=== PATIENT | female | born 1965 | race African-American/Black ===

== ENCOUNTER 2017-05-28 08:24 | Emergency (ER) | payer OTHER ==
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
[2017-05-28 09:01] VITALS: BMI 33.6
[2017-05-28] MEDS ORDERED: morphine CARPU-JECT 4 MG/1 ML DISP.SYRIN IVPUSH ONE (09:13)
[2017-05-28] MEDS ORDERED: morphine CARPU-JECT 2 MG/1 ML DISP.SYRIN ONE (09:15)
[2017-05-28] MEDS ORDERED: ONDANSETRON 4 MG/2 ML VIAL IVPUSH ONE (09:15)
[2017-05-28] MEDS ORDERED: ONDANSETRON 4 MG/2 ML VIAL ONE (09:16)
[2017-05-28 09:52] LABS: BASOPHIL 1.1 % (0-2.0); EOSINOPHIL 1.4 % (0-4.5); MCH 32.3 pg (25.7-33.7); MCHC 34.1 g/dl (32.0-36.0); MEAN CELL VOLUME 94.7 fl (80-96); MEAN PLT VOLUME 7.9 fl (7.5-11.1); NEUTROPHILS 57.4 % (42.8-82.8); PLATELET COUNT 300 K/MM3 (134-434); RDW 14.2 % (11.6-15.6); WHITE BLOOD COUNT 6.7 K/mm3 (4.0-10.0)
[2017-05-28 10:13] LABS: ALBUMIN 3.9 g/dl (3.4-5.0); ALK PHOS 96 U/L (45-117); ANION GAP 6 (8-16); CALCIUM 9.4 mg/dL (8.5-10.1); CO2 27 mmol/L (21-32); CREATININE 0.7 mg/dL (0.55-1.02); GLUCOSE,RANDOM 108 mg/dL (74-106); SGPT/ALT 46 U/L (12-78); TOT PROT 7.5 g/dl (6.4-8.2)
[2017-05-28 10:18] LABS: INR 0.96 (0.82-1.09); PROTHROMBIN TIME (PATIENT) 10.5 SEC (9.98-11.88)
[2017-05-28 10:19] LABS: SGOT/AST 61 U/L (15-37)
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
[2017-05-28] MEDS ORDERED: KETOROLAC TROMETHAMINE 30 MG/1 ML VIAL IVPUSH ONE (11:37)
[2017-05-28] MEDS ORDERED: KETOROLAC TROMETHAMINE 30 MG/1 ML VIAL ONE (13:01)
[2017-05-28 13:18] VITALS: BP 150/80; PULSE 80; TEMP 98
== END 2017-05-28 13:19 | disposition home or self-care (01) ==
LOC: JER 08:24
PROC: 3E0333Z Introduction of Anti-inflammatory into Peripheral Vein, Percutaneous Approach (ICD-10-PCS; principal; 2017-05-28)
PROC: 3E033NZ Introduction of Analgesics, Hypnotics, Sedatives into Peripheral Vein, Percutaneous Approach (ICD-10-PCS; 2017-05-28)
PROC: 3E033GC Introduction of Other Therapeutic Substance into Peripheral Vein, Percutaneous Approach (ICD-10-PCS; 2017-05-28)
DX: M54.2 Cervicalgia (principal); M54.6 Pain in thoracic spine; I10 Essential (primary) hypertension; E78.00 Pure hypercholesterolemia, unspecified; Z87.891 Personal history of nicotine dependence
CPT/HCPCS: 36415; 70450-TC; 71101-TC; 72125-TC; 74177-TC; 80053; 85025; 85610; 86850; 86900; 86901; 99283-25

== ENCOUNTER 2021-05-25 09:05 | Emergency (ER) | payer OTHER ==
[2021-05-25 09:14] VITALS: BMI 26.4
[2021-05-25] MEDS ORDERED: SODIUM CHLORIDE 0.9% 1000 ML INFUS.BAG IV ONE (09:59)
[2021-05-25 10:49] LABS: BASO % 0.6 % (0-2.0); EOS % 0.3 % (0-4.5); HEMATOCRIT 32.9 % (32.4-45.2); HEMOGLOBIN 10.7 GM/dL (10.7-15.3); LYMPH % 15.4 % (8-40); MCH 26.1 pg (25.7-33.7); MCHC 32.4 g/dl (32.0-36.0); MEAN CELL VOLUME 80.5 fl (80-96); MEAN PLT VOLUME 7.2 fl (7.5-11.1); MONO % 6.3 % (3.8-10.2); NEUT % 77.4 % (42.8-82.8); PLATELET COUNT 511 10^3/uL (134-434); RBC 4.08 M/mm3 (3.60-5.2); RDW 24.8 % (11.6-15.6); WHITE BLOOD COUNT 9.1 K/mm3 (4.0-10.0)
[2021-05-25 11:06] LABS: CHLORIDE 104 mmol/L (98-107); SODIUM 139 mmol/L (136-145)
[2021-05-25 11:08] LABS: CALCIUM 9.1 mg/dL (8.5-10.1)
[2021-05-25 11:09] LABS: ALBUMIN 3.4 g/dl (3.4-5.0); ANION GAP 7 MMOL/L (8-16); BLOOD UREA NITROGEN 9.1 mg/dL (7-18); CO2 29 mmol/L (21-32); GLUCOSE,RANDOM 96 mg/dL (74-106)
[2021-05-25 11:12] LABS: CREATININE 0.5 mg/dL (0.55-1.3); SGOT/AST 116 U/L (15-37); SGPT/ALT 67 U/L (13-61)
[2021-05-25 11:13] LABS: TOT PROT 7.1 g/dl (6.4-8.2)
[2021-05-25 11:14] LABS: BILIRUBIN,TOTAL 0.4 mg/dL (0.2-1)
[2021-05-25 11:15] LABS: ALK PHOS 294 U/L (45-117)
[2021-05-25 11:46] LABS: EPI CELLS 21 /uL (0-25.1); HYALINE CASTS 9 /uL (0-3.1); PH,URINE 7.5 (5.0-8.0); URINE APPEARANCE CLOUDY; URINE BACTERIA >9,000 /uL (0-1359); URINE BILIRUBIN NEGATIVE (NEGATIVE); URINE COLOR YELLOW; URINE GLUCOSE (UA) NEGATIVE (NEGATIVE); URINE KETONE NEGATIVE (NEGATIVE); URINE LEUK ESTERASE 2+ (NEGATIVE); URINE NITRITE POSITIVE (NEGATIVE); URINE PROTEIN NEGATIVE (NEGATIVE); URINE RBC 10 /uL (0-23.9); URINE WBC 232 /uL (0-25.8)
[2021-05-25 11:58] VITALS: TEMP 97.7
[2021-05-25 12:00] LABS: ANISOCYTOSIS 1+; MACROCYTOSIS 0; PLATELET ESTIMATE INCREASED
[2021-05-25 12:34] VITALS: BP 141/79; PULSE 89
== END 2021-05-25 12:34 | disposition home or self-care (01) ==
LOC: JER 09:05
DX: R55 Syncope and collapse (principal); N39.0 Urinary tract infection, site not specified
CPT/HCPCS: 36415; 71045-TC-FY; 80053; 81003; 84484; 85025; 87086; 93005; 93010; 99285-25

== ENCOUNTER 2021-05-31 10:55 | Inpatient (IN) | payer OTHER ==
[2021-05-31 12:09] LABS: HEMATOCRIT 32.6 % (32.4-45.2); HEMOGLOBIN 10.8 GM/dL (10.7-15.3); LYMPH % 16.8 % (8-40); MCH 26.5 pg (25.7-33.7); MEAN CELL VOLUME 80.3 fl (80-96); MEAN PLT VOLUME 7.5 fl (7.5-11.1); MONO % 7.1 % (3.8-10.2); NEUT % 75.1 % (42.8-82.8); PLATELET COUNT 522 10^3/uL (134-434); RBC 4.06 M/mm3 (3.60-5.2); RDW 23.4 % (11.6-15.6); WHITE BLOOD COUNT 9.8 K/mm3 (4.0-10.0)
[2021-05-31] MEDS ORDERED: SODIUM CHLORIDE 1,000 ML IV STA (12:13)
[2021-05-31 12:16] LABS: INR 1.02 (0.83-1.09); PROTHROMBIN TIME (PATIENT) 12.6 SEC (9.7-13.0)
[2021-05-31 12:30] LABS: ALBUMIN 3.5 g/dl (3.4-5.0); CALCIUM 9.8 mg/dL (8.5-10.1)
[2021-05-31 12:33] LABS: CREATININE 0.7 mg/dL (0.55-1.3)
[2021-05-31 12:35] LABS: BILIRUBIN,TOTAL 0.4 mg/dL (0.2-1); TOT PROT 7.4 g/dl (6.4-8.2)
[2021-05-31 13:02] LABS: EPI CELLS >36 /uL (0-25.1); HYALINE CASTS 46 /uL (0-3.1); URINE APPEARANCE CLOUDY; URINE BACTERIA 20 /uL (0-1359); URINE BILIRUBIN 1+ (NEGATIVE); URINE COLOR DK YELLOW; URINE GLUCOSE (UA) NEGATIVE (NEGATIVE); URINE KETONE 1+ (NEGATIVE); URINE LEUK ESTERASE 2+ (NEGATIVE); URINE NITRITE NEGATIVE (NEGATIVE); URINE PROTEIN 2+ (NEGATIVE); URINE RBC 28 /uL (0-23.9); URINE WBC 164 /uL (0-25.8)
[2021-05-31 13:22] LABS: ANISOCYTOSIS 2+; MACROCYTOSIS 0; PLATELET ESTIMATE INCREASED; TARGET CELLS 1+; TEAR DROP CELLS 1+
[2021-05-31] MEDS ORDERED: DEXTROSE 5%-LACTATED RINGERS 1,000 ML IV ONE (15:35)
[2021-05-31] MEDS ORDERED: morphine CARPU-JECT 4 MG/1 ML DISP.SYRIN IVPUSH ONE (15:44)
[2021-05-31] MEDS ORDERED: morphine SULFATE 4 MG/ML VIAL ONE (15:50)
[2021-05-31] MEDS ORDERED: DOCUSATE SODIUM 100 MG CAPSULE (FP) PO PRN (17:24)
[2021-05-31] MEDS ORDERED: ENOXAPARIN NA (PORCINE) 40 MG/0.4 ML DISP.SYRIN SQ ONE (17:25)
[2021-05-31] MEDS: ENOXAPARIN NA (PORCINE) 40 MG/0.4 ML DISP.SYRIN SQ SCH (17:44)
[2021-05-31] MEDS: oxyCODONE HCL 5 MG TABLET PO PRN (22:30)
[2021-05-31 23:05] VITALS: BMI 27.1
[2021-06-01] MEDS: oxyCODONE HCL 5 MG TABLET PO PRN ×3 (06:24→19:56)
[2021-06-01 09:51] LABS: BASO % 0.9 % (0-2.0); EOS % 0.6 % (0-4.5); HEMATOCRIT 29.8 % (32.4-45.2); HEMOGLOBIN 9.7 GM/dL (10.7-15.3); LYMPH % 24.6 % (8-40); MCH 26.5 pg (25.7-33.7); MCHC 32.5 g/dl (32.0-36.0); MEAN CELL VOLUME 81.5 fl (80-96); MEAN PLT VOLUME 8.1 fl (7.5-11.1); MONO % 10.8 % (3.8-10.2); NEUT % 63.1 % (42.8-82.8); PLATELET COUNT 455 10^3/uL (134-434); RBC 3.66 M/mm3 (3.60-5.2); RDW 23.7 % (11.6-15.6); WHITE BLOOD COUNT 7.3 K/mm3 (4.0-10.0)
[2021-06-01] MEDS ORDERED: FLU VACC QS2021-22(6MOS UP)/PF 60 MCG/0.5 ML SYRINGE IM ONE (10:00)
[2021-06-01 10:14] LABS: CALCIUM 9.1 mg/dL (8.5-10.1)
[2021-06-01 10:15] LABS: ALBUMIN 3.1 g/dl (3.4-5.0); BLOOD UREA NITROGEN 7.9 mg/dL (7-18); MAGNESIUM 2.6 mg/dL (1.8-2.4)
[2021-06-01 10:17] LABS: BILIRUBIN,TOTAL 0.4 mg/dL (0.2-1); TOT PROT 6.4 g/dl (6.4-8.2)
[2021-06-01 10:18] LABS: CREATININE 0.5 mg/dL (0.55-1.3)
[2021-06-01 10:35] LABS: PHOSPHOROUS 4.2 mg/dL (2.5-4.9)
[2021-06-01] MEDS ORDERED: PT OWN MED DRAWER 7, Y5N ONE (10:38)
[2021-06-01] MEDS: amLODIPine BESYLATE 10 MG TABLET (FP) PO SCH (11:00)
[2021-06-01] MEDS: LISINOPRIL 10 MG TABLET PO SCH (11:01)
[2021-06-01] MEDS: ENOXAPARIN NA (PORCINE) 40 MG/0.4 ML DISP.SYRIN SQ SCH (11:01)
[2021-06-01] MEDS: ACETAMINOPHEN 325 MG TABLET (FP) PO PRN ×2 (13:37→20:00)
[2021-06-01] MEDS ORDERED: SODIUM PHOSPHATE/NA BIPHOS 133 ML ENEMA PR ONE (13:57)
[2021-06-01] MEDS ORDERED: POLYETHYLENE GLYCOL 3350 255 GM BTL PO ONE (13:57)
[2021-06-01] MEDS: LIDOCAINE 5% TOPICAL PATCH TP SCH (18:48)
[2021-06-01 19:52] LABS: URINE APPEARANCE CLEAR; URINE BILIRUBIN NEGATIVE (NEGATIVE); URINE COLOR YELLOW; URINE GLUCOSE (UA) NEGATIVE (NEGATIVE); URINE KETONE NEGATIVE (NEGATIVE); URINE LEUK ESTERASE NEGATIVE (NEGATIVE); URINE NITRITE NEGATIVE (NEGATIVE); URINE PROTEIN NEGATIVE (NEGATIVE); URINE UROBILINOGEN 0.2 mg/dL (0.2-1.0)
[2021-06-01] MEDS: LIDOCAINE PATCH REMOVAL MC SCH (21:43)
[2021-06-02] MEDS ORDERED: SODIUM PHOSPHATE/NA BIPHOS 133 ML ENEMA RC ONE (04:00)
[2021-06-02] MEDS: oxyCODONE HCL 5 MG TABLET PO PRN ×4 (04:49→23:59)
[2021-06-02] MEDS: ACETAMINOPHEN 325 MG TABLET (FP) PO PRN ×4 (04:52→23:59)
[2021-06-02 08:11] LABS: BASO % 0.3 % (0-2.0); EOS % 0.2 % (0-4.5); HEMATOCRIT 29.2 % (32.4-45.2); HEMOGLOBIN 9.5 GM/dL (10.7-15.3); LYMPH % 16.9 % (8-40); MCH 26.4 pg (25.7-33.7); MCHC 32.6 g/dl (32.0-36.0); MEAN CELL VOLUME 81.1 fl (80-96); MEAN PLT VOLUME 7.8 fl (7.5-11.1); MONO % 9.2 % (3.8-10.2); NEUT % 73.4 % (42.8-82.8); PLATELET COUNT 432 10^3/uL (134-434); RBC 3.61 M/mm3 (3.60-5.2); RDW 23.3 % (11.6-15.6); WHITE BLOOD COUNT 6.6 K/mm3 (4.0-10.0)
[2021-06-02 08:15] LABS: INR 1.01 (0.83-1.09); PROTHROMBIN TIME (PATIENT) 12.2 SEC (9.7-13.0)
[2021-06-02 08:17] LABS: ACTIVATED PTT 27.7 SECONDS (25.2-36.5)
[2021-06-02 08:56] LABS: ALBUMIN 3.1 g/dl (3.4-5.0); BLOOD UREA NITROGEN 5.4 mg/dL (7-18); CALCIUM 9.2 mg/dL (8.5-10.1); MAGNESIUM 2.5 mg/dL (1.8-2.4)
[2021-06-02 08:59] LABS: CREATININE 0.5 mg/dL (0.55-1.3); PHOSPHOROUS 4.2 mg/dL (2.5-4.9)
[2021-06-02 09:00] LABS: BILIRUBIN,TOTAL 0.5 mg/dL (0.2-1); TOT PROT 6.6 g/dl (6.4-8.2)
[2021-06-02] MEDS: LISINOPRIL 10 MG TABLET PO SCH (12:23)
[2021-06-02] MEDS: amLODIPine BESYLATE 10 MG TABLET (FP) PO SCH (12:25)
[2021-06-02] MEDS: LIDOCAINE 5% TOPICAL PATCH TP SCH (12:25)
[2021-06-02] MEDS: LIDOCAINE PATCH REMOVAL MC SCH (22:06)
[2021-06-03] MEDS ORDERED: SODIUM CHLORIDE 1,000 ML IV SCH (00:15)
[2021-06-03] MEDS ORDERED: ONDANSETRON 4 MG/2 ML VIAL IVPUSH ONE (03:28)
[2021-06-03] MEDS: oxyCODONE HCL 5 MG TABLET PO PRN ×2 (04:16→10:39)
[2021-06-03] MEDS: ACETAMINOPHEN 325 MG TABLET (FP) PO PRN (04:17)
[2021-06-03] MEDS: LIDOCAINE 5% TOPICAL PATCH TP SCH (10:39)
[2021-06-03] MEDS: ENOXAPARIN NA (PORCINE) 40 MG/0.4 ML DISP.SYRIN SQ SCH (10:39)
[2021-06-03 12:33] LABS: BASO % 0.7 % (0-2.0); HEMATOCRIT 30.3 % (32.4-45.2); HEMOGLOBIN 9.8 GM/dL (10.7-15.3); LYMPH % 16.4 % (8-40); MCH 26.4 pg (25.7-33.7); MCHC 32.2 g/dl (32.0-36.0); MEAN PLT VOLUME 7.9 fl (7.5-11.1); MONO % 7.5 % (3.8-10.2); NEUT % 75.4 % (42.8-82.8); PLATELET COUNT 436 10^3/uL (134-434); RBC 3.69 M/mm3 (3.60-5.2); RDW 22.7 % (11.6-15.6); WHITE BLOOD COUNT 9.5 K/mm3 (4.0-10.0)
[2021-06-03 12:55] LABS: CALCIUM 8.9 mg/dL (8.5-10.1)
[2021-06-03 12:56] LABS: BLOOD UREA NITROGEN 6.8 mg/dL (7-18); MAGNESIUM 2.2 mg/dL (1.8-2.4)
[2021-06-03 12:59] LABS: CREATININE 0.5 mg/dL (0.55-1.3); PHOSPHOROUS 3.4 mg/dL (2.5-4.9)
[2021-06-03] MEDS: LIDOCAINE PATCH REMOVAL MC SCH (21:42)
[2021-06-04] MEDS ORDERED: LOPERAMIDE HCL 2 MG CAPSULE PO ONE (06:49)
[2021-06-04] MEDS: oxyCODONE HCL 5 MG TABLET PO PRN (07:48)
[2021-06-04 09:22] LABS: EOS % 0.1 % (0-4.5); HEMATOCRIT 30.3 % (32.4-45.2); HEMOGLOBIN 9.9 GM/dL (10.7-15.3); LYMPH % 15.6 % (8-40); MCH 26.6 pg (25.7-33.7); MCHC 32.5 g/dl (32.0-36.0); MEAN CELL VOLUME 81.7 fl (80-96); MONO % 9.3 % (3.8-10.2); PLATELET COUNT 451 10^3/uL (134-434); RBC 3.71 M/mm3 (3.60-5.2); RDW 22.7 % (11.6-15.6); WHITE BLOOD COUNT 8.4 K/mm3 (4.0-10.0)
[2021-06-04] MEDS: amLODIPine BESYLATE 10 MG TABLET (FP) PO SCH (09:30)
[2021-06-04] MEDS: LIDOCAINE 5% TOPICAL PATCH TP SCH (09:30)
[2021-06-04] MEDS: LISINOPRIL 10 MG TABLET PO SCH (09:30)
[2021-06-04] MEDS: ENOXAPARIN NA (PORCINE) 40 MG/0.4 ML DISP.SYRIN SQ SCH (09:30)
[2021-06-04 09:54] LABS: ALBUMIN 2.9 g/dl (3.4-5.0)
[2021-06-04 09:55] LABS: BLOOD UREA NITROGEN 7.6 mg/dL (7-18); MAGNESIUM 2.5 mg/dL (1.8-2.4)
[2021-06-04 09:57] LABS: CREATININE 0.5 mg/dL (0.55-1.3); PHOSPHOROUS 3.1 mg/dL (2.5-4.9)
[2021-06-04 09:58] LABS: BILIRUBIN,TOTAL 0.6 mg/dL (0.2-1)
[2021-06-04 09:59] LABS: TOT PROT 6.6 g/dl (6.4-8.2)
[2021-06-04 10:52] LABS: ANISOCYTOSIS 1+; MACROCYTOSIS 0; PLATELET ESTIMATE INCREASED
[2021-06-04] MEDS: HYDROmorphone HCl 2 MG/ML VIAL IVPB PRN (18:49)
[2021-06-04] MEDS ORDERED: ONDANSETRON 4 MG/2 ML VIAL IVPUSH ONE (20:10)
[2021-06-04] MEDS: LIDOCAINE PATCH REMOVAL MC SCH (23:09)
[2021-06-05] MEDS: HYDROmorphone HCl 2 MG/ML VIAL IVPB PRN ×2 (01:57→15:13)
[2021-06-05] MEDS ORDERED: ONDANSETRON 8 MG TABLET (FP) PO PRN (10:04)
[2021-06-05] MEDS: LIDOCAINE 5% TOPICAL PATCH TP SCH (10:15)
[2021-06-05] MEDS: LISINOPRIL 10 MG TABLET PO SCH (10:16)
[2021-06-05] MEDS: amLODIPine BESYLATE 10 MG TABLET (FP) PO SCH (10:16)
[2021-06-05 16:27] LABS: ALBUMIN 3.2 g/dl (3.4-5.0); CALCIUM 9.7 mg/dL (8.5-10.1)
[2021-06-05 16:28] LABS: BLOOD UREA NITROGEN 11.3 mg/dL (7-18); MAGNESIUM 2.4 mg/dL (1.8-2.4)
[2021-06-05 16:31] LABS: CREATININE 0.5 mg/dL (0.55-1.3); PHOSPHOROUS 4.4 mg/dL (2.5-4.9)
[2021-06-05 16:32] LABS: BILIRUBIN,TOTAL 0.5 mg/dL (0.2-1); TOT PROT 6.9 g/dl (6.4-8.2)
[2021-06-05] MEDS: LIDOCAINE PATCH REMOVAL MC SCH (21:33)
[2021-06-06] MEDS: HYDROmorphone HCl 2 MG/ML VIAL IVPB PRN (04:29)
[2021-06-06 09:53] LABS: BASO % 0.6 % (0-2.0); EOS % 0.2 % (0-4.5); HEMATOCRIT 29.1 % (32.4-45.2); HEMOGLOBIN 9.5 GM/dL (10.7-15.3); LYMPH % 24.9 % (8-40); MCH 26.3 pg (25.7-33.7); MCHC 32.7 g/dl (32.0-36.0); MEAN CELL VOLUME 80.5 fl (80-96); MEAN PLT VOLUME 7.8 fl (7.5-11.1); MONO % 9.4 % (3.8-10.2); NEUT % 64.9 % (42.8-82.8); PLATELET COUNT 501 10^3/uL (134-434); RBC 3.62 M/mm3 (3.60-5.2); RDW 22.6 % (11.6-15.6); WHITE BLOOD COUNT 7.5 K/mm3 (4.0-10.0)
[2021-06-06 10:15] LABS: ALBUMIN 2.8 g/dl (3.4-5.0); BLOOD UREA NITROGEN 12.3 mg/dL (7-18); CALCIUM 8.9 mg/dL (8.5-10.1); MAGNESIUM 1.8 mg/dL (1.8-2.4)
[2021-06-06 10:18] LABS: PHOSPHOROUS 4.4 mg/dL (2.5-4.9)
[2021-06-06 10:19] LABS: BILIRUBIN,TOTAL 0.3 mg/dL (0.2-1); CREATININE 0.5 mg/dL (0.55-1.3)
[2021-06-06 10:20] LABS: TOT PROT 6.7 g/dl (6.4-8.2)
[2021-06-06] MEDS: LIDOCAINE 5% TOPICAL PATCH TP SCH (10:37)
[2021-06-06] MEDS: amLODIPine BESYLATE 10 MG TABLET (FP) PO SCH (10:41)
[2021-06-06] MEDS: LISINOPRIL 10 MG TABLET PO SCH (10:41)
[2021-06-06 10:47] VITALS: BP 128/77; PULSE 68; TEMP 98.2
[2021-06-06] MEDS ORDERED: FLU VACC QS2021-22(6MOS UP)/PF 60 MCG/0.5 ML SYRINGE IM ONE (15:45)
[2021-06-06] MEDS ORDERED: oxyCODONE HCL 5 MG TABLET PO PRN (17:15)
[2021-06-06] MEDS ORDERED: ACETAMINOPHEN 325 MG TABLET (FP) PO PRN (17:15)
== END 2021-06-06 17:39 | disposition home or self-care (01) | DRG 375 ==
LOC: JER 10:55 → JERBED 15:55 → J5S 20:34
PROVIDERS: ADMIT Internal Medicine; ATTEND Internal Medicine
PROC: 0DBK8ZX Excision of Ascending Colon, Via Natural or Artificial Opening Endoscopic, Diagnostic (ICD-10-PCS; 2021-06-02)
PROC: 0DBP8ZX Excision of Rectum, Via Natural or Artificial Opening Endoscopic, Diagnostic (ICD-10-PCS; 2021-06-02)
PROC: 0DBK8ZX Excision of Ascending Colon, Via Natural or Artificial Opening Endoscopic, Diagnostic (ICD-10-PCS; principal; 2021-06-02 10:00)
DX: C18.2 Malignant neoplasm of ascending colon (principal); C78.7 Secondary malignant neoplasm of liver and intrahepatic bile duct; I10 Essential (primary) hypertension; E78.5 Hyperlipidemia, unspecified; R63.4 Abnormal weight loss; Z68.27 Body mass index [BMI] 27.0-27.9, adult; R00.0 Tachycardia, unspecified; K57.90 Diverticulosis of intestine, part unspecified, without perforation or abscess without bleeding; R10.31 Right lower quadrant pain; D12.1 Benign neoplasm of appendix; D12.8 Benign neoplasm of rectum
CPT/HCPCS: 36415; 71046-TC-FY; 71250-TC; 72149-TC; 74177-TC; 78306-TC; 80048; 80053; 81003; 82378; 83615; 83690; 83735; 84100; 85025; 85610; 85730; 86850; 86900; 86901; 87040; 87086; 88305-TC; 90686; 93005; 93010; 99285-25; A9503; A9579; C9803; G0008; Q9967; U0003; U0005

== ENCOUNTER 2021-07-06 15:13 | Inpatient (IN) | payer OTHER ==
[2021-07-06] MEDS ORDERED: morphine CARPU-JECT 4 MG/1 ML DISP.SYRIN IVPUSH ONE (16:16)
[2021-07-06] MEDS ORDERED: morphine SULFATE 4 MG/ML VIAL ONE ×2 (16:18→19:24)
[2021-07-06] MEDS ORDERED: LACTATED RINGERS SOLUTION 1000 ML INFUS.BAG IV ONE ×2 (16:55→19:13)
[2021-07-06] MEDS ORDERED: ONDANSETRON 4 MG/2 ML VIAL IVPUSH ONE (17:18)
[2021-07-06] MEDS ORDERED: ONDANSETRON 4 MG/2 ML VIAL ONE (17:22)
[2021-07-06 18:33] LABS: ALBUMIN 3.2 g/dl (3.4-5.0); BLOOD UREA NITROGEN 27.5 mg/dL (7-18); CALCIUM 9.7 mg/dL (8.5-10.1); MAGNESIUM 2.9 mg/dL (1.8-2.4)
[2021-07-06 18:36] LABS: BILIRUBIN,DIRECT 3.5 mg/dL (0.0-0.2)
[2021-07-06 18:38] LABS: BILIRUBIN,TOTAL 4.4 mg/dL (0.2-1); TOT PROT 7.3 g/dl (6.4-8.2)
[2021-07-06 18:52] LABS: LACTIC ACID 3.3 mmol/L (0.4-2.0)
[2021-07-06 19:00] LABS: HEMATOCRIT 31.2 % (32.4-45.2); HEMOGLOBIN 9.8 GM/dL (10.7-15.3); MCH 24.7 pg (25.7-33.7); MCHC 31.4 g/dl (32.0-36.0); MEAN CELL VOLUME 78.5 fl (80-96); MEAN PLT VOLUME 8.2 fl (7.5-11.1); PLATELET COUNT 635 10^3/uL (134-434); RBC 3.97 M/mm3 (3.60-5.2); WHITE BLOOD COUNT 16.1 K/mm3 (4.0-10.0)
[2021-07-06] MEDS ORDERED: SODIUM CHLORIDE 0.9% 500 ML INFUS.BAG IV ONE (19:11)
[2021-07-06] MEDS ORDERED: morphine SULFATE 4 MG/ML VIAL IVPUSH ONE (19:19)
[2021-07-06 19:44] LABS: INR 1.47 (0.83-1.09); PROTHROMBIN TIME (PATIENT) 16.5 SEC (9.7-13.0)
[2021-07-06 19:47] LABS: ACTIVATED PTT 21.5 SECONDS (25.2-36.5)
[2021-07-06 20:47] LABS: ANISOCYTOSIS 1+; MACROCYTOSIS 0; PLATELET ESTIMATE INCREASED; TARGET CELLS 1+
[2021-07-06] MEDS ORDERED: amLODIPine BESYLATE 5 MG TABLET (FP) PO ONE (21:25)
[2021-07-06] MEDS ORDERED: amLODIPine BESYLATE 5 MG TABLET (FP) ONE (21:47)
[2021-07-06 23:52] LABS: HEMATOCRIT 25.8 % (32.4-45.2); HEMOGLOBIN 8.5 GM/dL (10.7-15.3); MCH 24.7 pg (25.7-33.7); MCHC 32.8 g/dl (32.0-36.0); MEAN CELL VOLUME 75.1 fl (80-96); PLATELET COUNT 497 10^3/uL (134-434); RBC 3.43 M/mm3 (3.60-5.2); RDW 18.5 % (11.6-15.6); WHITE BLOOD COUNT 12.5 K/mm3 (4.0-10.0)
[2021-07-07 00:14] LABS: BLOOD UREA NITROGEN 25.5 mg/dL (7-18); CALCIUM 8.6 mg/dL (8.5-10.1)
[2021-07-07 00:18] LABS: CREATININE 0.7 mg/dL (0.55-1.3)
[2021-07-07] MEDS ORDERED: HYDROmorphone HCl 2 MG/ML VIAL ONE (01:48)
[2021-07-07] MEDS: HYDROmorphone HCl 2 MG/ML VIAL IVPUSH PRN ×3 (01:53→16:42)
[2021-07-07] MEDS: SODIUM CHLORIDE 1,000 ML IV SCH (02:30)
[2021-07-07] MEDS: LISINOPRIL 10 MG TABLET PO SCH ×2 (07:42→15:24)
[2021-07-07 09:01] LABS: PLATELET ESTIMATE NORMAL
[2021-07-07 09:21] LABS: HEMOGLOBIN 8.4 GM/dL (10.7-15.3); MCH 24.9 pg (25.7-33.7); MCHC 32.4 g/dl (32.0-36.0); MEAN CELL VOLUME 76.7 fl (80-96); MEAN PLT VOLUME 7.6 fl (7.5-11.1); PLATELET COUNT 540 10^3/uL (134-434); RBC 3.39 M/mm3 (3.60-5.2); RDW 17.6 % (11.6-15.6); WHITE BLOOD COUNT 13.9 K/mm3 (4.0-10.0)
[2021-07-07 09:57] LABS: ALBUMIN 2.7 g/dl (3.4-5.0); BLOOD UREA NITROGEN 28.5 mg/dL (7-18); MAGNESIUM 2.7 mg/dL (1.8-2.4)
[2021-07-07 10:00] LABS: CREATININE 0.7 mg/dL (0.55-1.3)
[2021-07-07] MEDS ORDERED: ENOXAPARIN NA (PORCINE) 40 MG/0.4 ML DISP.SYRIN SQ SCH (10:00)
[2021-07-07 10:01] LABS: BILIRUBIN,TOTAL 3.8 mg/dL (0.2-1); PHOSPHOROUS 3.9 mg/dL (2.5-4.9)
[2021-07-07 10:02] LABS: TOT PROT 6.3 g/dl (6.4-8.2)
[2021-07-07 10:39] LABS: ANISOCYTOSIS 2+; MACROCYTOSIS 0; PLATELET ESTIMATE INCREASED; TARGET CELLS 2+
[2021-07-07] MEDS ORDERED: SODIUM CHLORIDE 500 ML IV SCH (13:20)
[2021-07-07] MEDS ORDERED: MIDAZOLAM HCL 2 MG/2 ML SINGLE DOSE VIAL IVPUSH ONE (13:35)
[2021-07-07] MEDS: DOCUSATE SODIUM 100 MG CAPSULE (FP) PO SCH ×3 (14:00→22:17)
[2021-07-07 14:01] LABS: EPI CELLS >36 /uL (0-25.1); HYALINE CASTS 63 /uL (0-3.1); PH,URINE 5.5 (5.0-8.0); URINE APPEARANCE CLOUDY; URINE BACTERIA 42 /uL (0-1359); URINE BILIRUBIN 2+ (NEGATIVE); URINE COLOR DK YELLOW; URINE GLUCOSE (UA) NEGATIVE (NEGATIVE); URINE KETONE TRACE (NEGATIVE); URINE LEUK ESTERASE 1+ (NEGATIVE); URINE NITRITE NEGATIVE (NEGATIVE); URINE PROTEIN 2+ (NEGATIVE); URINE WBC 247 /uL (0-25.8)
[2021-07-07 14:16] LABS: URINE RBC 24.5 /uL (0-23.9)
[2021-07-07] MEDS ORDERED: HYDROmorphone HCl 2 MG/ML VIAL IVPB PRN ×2 (17:10→21:37)
[2021-07-07] MEDS: amLODIPine BESYLATE 10 MG TABLET (FP) PO SCH (22:17)
[2021-07-08] MEDS: SODIUM CHLORIDE 1,000 ML IV SCH ×2 (02:56→11:31)
[2021-07-08] MEDS ORDERED: HYDROmorphone HCl 2 MG/ML VIAL IVPB PRN ×3 (05:48→12:36)
[2021-07-08] MEDS: DOCUSATE SODIUM 100 MG CAPSULE (FP) PO SCH ×3 (06:14→21:50)
[2021-07-08] MEDS: LISINOPRIL 10 MG TABLET PO SCH (06:14)
[2021-07-08 08:52] LABS: BASO % 0.7 % (0-2.0); HEMATOCRIT 25.4 % (32.4-45.2); HEMOGLOBIN 8.2 GM/dL (10.7-15.3); INR 1.4 (0.83-1.09); LYMPH % 5.9 % (8-40); MCH 25.5 pg (25.7-33.7); MCHC 32.3 g/dl (32.0-36.0); MEAN CELL VOLUME 78.8 fl (80-96); MONO % 18.1 % (3.8-10.2); NEUT % 75.3 % (42.8-82.8); PLATELET COUNT 547 10^3/uL (134-434); PROTHROMBIN TIME (PATIENT) 15.7 SEC (9.7-13.0); RBC 3.22 M/mm3 (3.60-5.2); RDW 18.7 % (11.6-15.6); WHITE BLOOD COUNT 12.6 K/mm3 (4.0-10.0)
[2021-07-08 08:55] LABS: ACTIVATED PTT 22.1 SECONDS (25.2-36.5)
[2021-07-08] MEDS ORDERED: POLYETHYLENE GLYCOL (HEALTHYLAX) 3350 17 GM PACKET PO PRN (12:16)
[2021-07-08] MEDS: SODIUM ZIRCONIUM CYCLOSILICATE (LOKELMA) 5 GM PACKET PO SCH (15:12)
[2021-07-08] MEDS: ONDANSETRON 4 MG/2 ML VIAL IVPUSH PRN ×2 (15:15→21:45)
[2021-07-08 17:18] LABS: CALCIUM 8.8 mg/dL (8.5-10.1)
[2021-07-08 17:19] LABS: ALBUMIN 2.7 g/dl (3.4-5.0); BLOOD UREA NITROGEN 32.9 mg/dL (7-18); MAGNESIUM 2.8 mg/dL (1.8-2.4)
[2021-07-08 17:22] LABS: CREATININE 0.8 mg/dL (0.55-1.3)
[2021-07-08 17:23] LABS: BILIRUBIN,TOTAL 3.8 mg/dL (0.2-1)
[2021-07-08 17:24] LABS: TOT PROT 6.2 g/dl (6.4-8.2)
[2021-07-08] MEDS ORDERED: LACTULOSE 20 GM/30 ML UDC (FOR ORAL USE ONLY) PO PRN (17:58)
[2021-07-08] MEDS: amLODIPine BESYLATE 10 MG TABLET (FP) PO SCH (21:48)
[2021-07-08] MEDS: HEPARIN NA (PORCINE) 5,000 UNITS/ML 1ML VIAL SQ SCH (21:48)
[2021-07-08] MEDS: HYDROmorphone HCl 2 MG/ML VIAL IVPB PRN (21:50)
[2021-07-08] MEDS ORDERED: HEPARIN NA (PORCINE) 5,000 UNITS/ML 1ML VIAL SQ SCH (22:00)
[2021-07-09] MEDS: DEXTROSE 5%-NORMAL SALINE 1,000 ML IV SCH ×2 (01:23→18:34)
[2021-07-09] MEDS: HYDROmorphone HCl 2 MG/ML VIAL IVPB PRN ×3 (05:42→19:47)
[2021-07-09] MEDS: HEPARIN NA (PORCINE) 5,000 UNITS/ML 1ML VIAL SQ SCH ×3 (05:47→21:27)
[2021-07-09] MEDS: DOCUSATE SODIUM 100 MG CAPSULE (FP) PO SCH ×3 (05:50→21:32)
[2021-07-09] MEDS: LISINOPRIL 10 MG TABLET PO SCH (07:08)
[2021-07-09 08:52] LABS: HEMATOCRIT 25.4 % (32.4-45.2); HEMOGLOBIN 8.2 GM/dL (10.7-15.3); MCH 24.9 pg (25.7-33.7); MCHC 32.3 g/dl (32.0-36.0); MEAN CELL VOLUME 77.3 fl (80-96); MEAN PLT VOLUME 7.5 fl (7.5-11.1); PLATELET COUNT 476 10^3/uL (134-434); RBC 3.28 M/mm3 (3.60-5.2); RDW 18.5 % (11.6-15.6); WHITE BLOOD COUNT 12.6 K/mm3 (4.0-10.0)
[2021-07-09 09:13] LABS: ALBUMIN 2.6 g/dl (3.4-5.0); BLOOD UREA NITROGEN 32.4 mg/dL (7-18); CALCIUM 8.6 mg/dL (8.5-10.1); MAGNESIUM 2.8 mg/dL (1.8-2.4)
[2021-07-09 09:18] LABS: BILIRUBIN,TOTAL 4.3 mg/dL (0.2-1); CREATININE 0.9 mg/dL (0.55-1.3); TOT PROT 6.4 g/dl (6.4-8.2)
[2021-07-09] MEDS: SODIUM ZIRCONIUM CYCLOSILICATE (LOKELMA) 5 GM PACKET PO SCH (09:18)
[2021-07-09] MEDS: PANTOPRAZOLE SODIUM 40 MG VIAL IVPUSH SCH (09:18)
[2021-07-09] MEDS: MULTIVITAMINS (DAILY MVI) TABLET (FP) PO SCH (09:18)
[2021-07-09] MEDS: POLYETHYLENE GLYCOL (HEALTHYLAX) 3350 17 GM PACKET PO PRN (09:23)
[2021-07-09] MEDS ORDERED: PANTOPRAZOLE SODIUM 40 MG in SODIUM CHLORIDE 100 ML IVPB SCH (10:00)
[2021-07-09] MEDS ORDERED: HYDROmorphone HCl 2 MG/ML VIAL IVPB PRN ×2 (10:03→10:09)
[2021-07-09 10:53] LABS: ANISOCYTOSIS 0; HELMET CELLS 0; HOWELL-JOLLY BODIES 0; MACROCYTOSIS 0; OVALOCYTE 0; PLATELET ESTIMATE NORMAL; ROULEAU 0; SICKELED CELLS 0; TARGET CELLS 0; TEAR DROP CELLS 0; TOXIC GRANULATION 0
[2021-07-09 11:32] LABS: INR 1.34 (0.83-1.09); PROTHROMBIN TIME (PATIENT) 15.7 SEC (9.7-13.0)
[2021-07-09] MEDS ORDERED: FUROSEMIDE 20 MG TABLET (FP) PO ONE (13:26)
[2021-07-10] MEDS: HYDROmorphone HCl 2 MG/ML VIAL IVPB PRN ×4 (03:48→19:35)
[2021-07-10] MEDS: HEPARIN NA (PORCINE) 5,000 UNITS/ML 1ML VIAL SQ SCH ×3 (06:33→23:10)
[2021-07-10] MEDS: DOCUSATE SODIUM 100 MG CAPSULE (FP) PO SCH ×3 (06:33→23:10)
[2021-07-10 07:42] LABS: HEMATOCRIT 23.7 % (32.4-45.2); HEMOGLOBIN 7.6 GM/dL (10.7-15.3); MCHC 31.9 g/dl (32.0-36.0); MEAN CELL VOLUME 78.1 fl (80-96); MEAN PLT VOLUME 8.1 fl (7.5-11.1); PLATELET COUNT 395 10^3/uL (134-434); RBC 3.04 M/mm3 (3.60-5.2); RDW 18.7 % (11.6-15.6); WHITE BLOOD COUNT 11.7 K/mm3 (4.0-10.0)
[2021-07-10 07:48] LABS: INR 1.35 (0.83-1.09); PROTHROMBIN TIME (PATIENT) 15.8 SEC (9.7-13.0)
[2021-07-10 08:01] LABS: MAGNESIUM 2.6 mg/dL (1.8-2.4)
[2021-07-10 08:03] LABS: BLOOD UREA NITROGEN 31.5 mg/dL (7-18); CALCIUM 8.5 mg/dL (8.5-10.1)
[2021-07-10 08:04] LABS: ALBUMIN 2.4 g/dl (3.4-5.0)
[2021-07-10 08:06] LABS: CREATININE 0.8 mg/dL (0.55-1.3)
[2021-07-10 08:07] LABS: URIC ACID 9.7 mg/dL (2.6-7.2)
[2021-07-10 08:08] LABS: BILIRUBIN,TOTAL 3.6 mg/dL (0.2-1); TOT PROT 5.8 g/dl (6.4-8.2)
[2021-07-10] MEDS ORDERED: SODIUM CHLORIDE 250 ML IV ONE (09:30)
[2021-07-10] MEDS ORDERED: PALONOSETRON HCL 0.25 MG/5 ML VIAL IVPUSH ONE (10:00)
[2021-07-10] MEDS ORDERED: DEXAMETHASONE SODIUM PHOSPHATE 20 MG in SODIUM CHLORIDE 50 ML IVPB ONE (10:00)
[2021-07-10 10:08] LABS: ANISOCYTOSIS 2+; MACROCYTOSIS 0; PLATELET ESTIMATE NORMAL; TARGET CELLS 1+
[2021-07-10] MEDS ORDERED: DEXTROSE 5% IVPB ONE (10:30)
[2021-07-10] MEDS ORDERED: WATER IVPB ONE (10:30)
[2021-07-10] MEDS ORDERED: LEUCOVORIN IVPB ONE (10:30)
[2021-07-10] MEDS: ONDANSETRON 4 MG/2 ML VIAL IVPUSH PRN (11:23)
[2021-07-10] MEDS: POLYETHYLENE GLYCOL (HEALTHYLAX) 3350 17 GM PACKET PO PRN (11:23)
[2021-07-10] MEDS: SODIUM ZIRCONIUM CYCLOSILICATE (LOKELMA) 5 GM PACKET PO SCH (11:23)
[2021-07-10] MEDS: PANTOPRAZOLE SODIUM 40 MG VIAL IVPUSH SCH (11:24)
[2021-07-10] MEDS: MULTIVITAMINS (DAILY MVI) TABLET (FP) PO SCH (11:24)
[2021-07-10] MEDS ORDERED: FLUOROURACIL 4,275 MG in SODIUM CHLORIDE 6.5 ML CP ONE (12:30)
[2021-07-10] MEDS: ALLOPURINOL 300 MG TABLET (FP) PO SCH (12:31)
[2021-07-10 13:14] LABS: HEPATITIS B SURFACE AG MATERN NON-REACTIVE (NONREACTIVE)
[2021-07-10 18:48] LABS: HIV INTERPRETATION NEGATIVE (NEGATIVE)
[2021-07-10] MEDS: DEXTROSE 5%-NORMAL SALINE 1,000 ML IV SCH (19:34)
[2021-07-11] MEDS: HYDROmorphone HCl 2 MG/ML VIAL IVPB PRN ×4 (01:10→18:54)
[2021-07-11] MEDS: HEPARIN NA (PORCINE) 5,000 UNITS/ML 1ML VIAL SQ SCH ×3 (05:57→20:59)
[2021-07-11] MEDS: DOCUSATE SODIUM 100 MG CAPSULE (FP) PO SCH ×4 (05:58→20:59)
[2021-07-11 09:17] LABS: INR 1.3 (0.83-1.09); PROTHROMBIN TIME (PATIENT) 15.3 SEC (9.7-13.0)
[2021-07-11 09:23] LABS: BASO % 0.9 % (0-2.0); EOS % 0.1 % (0-4.5); HEMATOCRIT 24.4 % (32.4-45.2); HEMOGLOBIN 7.7 GM/dL (10.7-15.3); LYMPH % 3.1 % (8-40); MCH 24.8 pg (25.7-33.7); MCHC 31.5 g/dl (32.0-36.0); MEAN CELL VOLUME 78.6 fl (80-96); MEAN PLT VOLUME 7.9 fl (7.5-11.1); MONO % 8.8 % (3.8-10.2); NEUT % 87.1 % (42.8-82.8); PLATELET COUNT 384 10^3/uL (134-434); RDW 18.4 % (11.6-15.6); WHITE BLOOD COUNT 11.9 K/mm3 (4.0-10.0)
[2021-07-11] MEDS: fentaNYL 25mcg/hr PATCH.TD72 TD SCH (09:56)
[2021-07-11] MEDS: MULTIVITAMINS (DAILY MVI) TABLET (FP) PO SCH (09:57)
[2021-07-11] MEDS: PANTOPRAZOLE SODIUM 40 MG VIAL IVPUSH SCH (09:57)
[2021-07-11] MEDS: ALLOPURINOL 300 MG TABLET (FP) PO SCH (09:57)
[2021-07-11] MEDS: POLYETHYLENE GLYCOL (HEALTHYLAX) 3350 17 GM PACKET PO PRN (09:57)
[2021-07-11 10:27] LABS: ALBUMIN 2.2 g/dl (3.4-5.0); BLOOD UREA NITROGEN 24.2 mg/dL (7-18); CALCIUM 8.7 mg/dL (8.5-10.1)
[2021-07-11 10:28] LABS: MAGNESIUM 2.7 mg/dL (1.8-2.4)
[2021-07-11 10:30] LABS: CREATININE 0.7 mg/dL (0.55-1.3); TOT PROT 5.8 g/dl (6.4-8.2)
[2021-07-11] MEDS ORDERED: SODIUM ZIRCONIUM CYCLOSILICATE (LOKELMA) 5 GM PACKET PO ONE (13:41)
[2021-07-11 19:00] LABS: HIV INTERPRETATION NEGATIVE (NEGATIVE)
[2021-07-11] MEDS: DEXTROSE 5%-NORMAL SALINE 1,000 ML IV SCH (20:26)
[2021-07-12] MEDS: HYDROmorphone HCl 2 MG/ML VIAL IVPB PRN ×3 (04:51→17:29)
[2021-07-12] MEDS: DOCUSATE SODIUM 100 MG CAPSULE (FP) PO SCH ×5 (05:57→22:07)
[2021-07-12] MEDS: HEPARIN NA (PORCINE) 5,000 UNITS/ML 1ML VIAL SQ SCH ×3 (05:58→22:04)
[2021-07-12 08:30] LABS: BASO % 0.5 % (0-2.0); EOS % 0.2 % (0-4.5); HEMATOCRIT 23.1 % (32.4-45.2); HEMOGLOBIN 7.3 GM/dL (10.7-15.3); LYMPH % 3.5 % (8-40); MCH 24.7 pg (25.7-33.7); MCHC 31.9 g/dl (32.0-36.0); MEAN CELL VOLUME 77.4 fl (80-96); MONO % 12.4 % (3.8-10.2); NEUT % 83.4 % (42.8-82.8); PLATELET COUNT 380 10^3/uL (134-434); RBC 2.98 M/mm3 (3.60-5.2); RDW 18.3 % (11.6-15.6); WHITE BLOOD COUNT 12.3 K/mm3 (4.0-10.0)
[2021-07-12 08:51] LABS: INR 1.24 (0.83-1.09); PROTHROMBIN TIME (PATIENT) 13.9 SEC (9.7-13.0)
[2021-07-12 09:24] LABS: ALBUMIN 2.1 g/dl (3.4-5.0); BLOOD UREA NITROGEN 22.3 mg/dL (7-18); CALCIUM 8.6 mg/dL (8.5-10.1); MAGNESIUM 2.7 mg/dL (1.8-2.4)
[2021-07-12 09:27] LABS: CREATININE 0.6 mg/dL (0.55-1.3)
[2021-07-12 09:28] LABS: TOT PROT 5.6 g/dl (6.4-8.2)
[2021-07-12] MEDS: MULTIVITAMINS (DAILY MVI) TABLET (FP) PO SCH (10:04)
[2021-07-12] MEDS: ALLOPURINOL 300 MG TABLET (FP) PO SCH (10:04)
[2021-07-12] MEDS: PANTOPRAZOLE SODIUM 40 MG VIAL IVPUSH SCH (10:04)
[2021-07-12] MEDS ORDERED: MIRTAZAPINE 30 MG TABLET PO SCH (22:00)
[2021-07-12] MEDS: MIRTAZAPINE 15 MG TABLET (FP) PO SCH (22:04)
[2021-07-12] MEDS: DEXTROSE 5%-NORMAL SALINE 1,000 ML IV SCH (22:20)
[2021-07-13] MEDS: HYDROmorphone HCl 2 MG/ML VIAL IVPB PRN ×4 (06:46→22:31)
[2021-07-13] MEDS: DOCUSATE SODIUM 100 MG CAPSULE (FP) PO SCH ×4 (06:54→22:30)
[2021-07-13] MEDS: HEPARIN NA (PORCINE) 5,000 UNITS/ML 1ML VIAL SQ SCH ×3 (06:54→22:31)
[2021-07-13] MEDS: PANTOPRAZOLE SODIUM 40 MG VIAL IVPUSH SCH (09:42)
[2021-07-13] MEDS: MULTIVITAMINS (DAILY MVI) TABLET (FP) PO SCH (09:42)
[2021-07-13] MEDS: ALLOPURINOL 300 MG TABLET (FP) PO SCH (09:42)
[2021-07-13 10:43] LABS: HEMATOCRIT 22.3 % (32.4-45.2); HEMOGLOBIN 7.3 GM/dL (10.7-15.3); LYMPH % 5.2 % (8-40); MCH 24.8 pg (25.7-33.7); MCHC 32.5 g/dl (32.0-36.0); MEAN CELL VOLUME 76.3 fl (80-96); MEAN PLT VOLUME 7.3 fl (7.5-11.1); MONO % 3.4 % (3.8-10.2); NEUT % 90.4 % (42.8-82.8); PLATELET COUNT 360 10^3/uL (134-434); RBC 2.93 M/mm3 (3.60-5.2); RDW 18.3 % (11.6-15.6); WHITE BLOOD COUNT 10.5 K/mm3 (4.0-10.0)
[2021-07-13 11:12] LABS: CALCIUM 8.1 mg/dL (8.5-10.1)
[2021-07-13 11:13] LABS: ALBUMIN 1.9 g/dl (3.4-5.0); BLOOD UREA NITROGEN 16.3 mg/dL (7-18); MAGNESIUM 2.5 mg/dL (1.8-2.4)
[2021-07-13 11:16] LABS: CREATININE 0.7 mg/dL (0.55-1.3)
[2021-07-13 11:18] LABS: BILIRUBIN,TOTAL 3.4 mg/dL (0.2-1); TOT PROT 5.4 g/dl (6.4-8.2)
[2021-07-13] MEDS ORDERED: TBO-FILGRASTIM 300 MCG/0.5 ML DISP.SYRINGE SQ ONE (18:00)
[2021-07-13] MEDS: DEXTROSE 5%-NORMAL SALINE 1,000 ML IV SCH (19:15)
[2021-07-13] MEDS: MIRTAZAPINE 15 MG TABLET (FP) PO SCH (22:31)
[2021-07-14] MEDS: DEXTROSE 5%-NORMAL SALINE 1,000 ML IV SCH (01:20)
[2021-07-14] MEDS: HEPARIN NA (PORCINE) 5,000 UNITS/ML 1ML VIAL SQ SCH ×3 (05:49→21:01)
[2021-07-14] MEDS: DOCUSATE SODIUM 100 MG CAPSULE (FP) PO SCH ×4 (05:49→21:02)
[2021-07-14 08:41] LABS: HEMOGLOBIN 8.3 GM/dL (10.7-15.3); MCH 25.8 pg (25.7-33.7); MEAN CELL VOLUME 78.2 fl (80-96); MEAN PLT VOLUME 8.1 fl (7.5-11.1); PLATELET COUNT 346 10^3/uL (134-434); WHITE BLOOD COUNT 20.6 K/mm3 (4.0-10.0)
[2021-07-14 08:53] LABS: CALCIUM 7.9 mg/dL (8.5-10.1)
[2021-07-14 08:54] LABS: ALBUMIN 1.9 g/dl (3.4-5.0); BLOOD UREA NITROGEN 11.7 mg/dL (7-18); MAGNESIUM 2.2 mg/dL (1.8-2.4)
[2021-07-14 08:56] LABS: URIC ACID 3.6 mg/dL (2.6-7.2)
[2021-07-14 08:57] LABS: CREATININE 0.6 mg/dL (0.55-1.3)
[2021-07-14 08:58] LABS: BILIRUBIN,TOTAL 5.5 mg/dL (0.2-1); TOT PROT 5.6 g/dl (6.4-8.2)
[2021-07-14 09:19] LABS: ANISOCYTOSIS 1+; MACROCYTOSIS 0; PLATELET ESTIMATE NORMAL
[2021-07-14] MEDS ORDERED: FENTANYL PATCH WASTE MC PRN (09:35)
[2021-07-14] MEDS ORDERED: fentaNYL 12mcg/hr PATCH.TD72 TD SCH (09:45)
[2021-07-14] MEDS: PANTOPRAZOLE SODIUM 40 MG VIAL IVPUSH SCH (09:58)
[2021-07-14] MEDS: ALLOPURINOL 300 MG TABLET (FP) PO SCH (09:59)
[2021-07-14] MEDS: MULTIVITAMINS (DAILY MVI) TABLET (FP) PO SCH (09:59)
[2021-07-14] MEDS: fentaNYL 25mcg/hr PATCH.TD72 TD SCH (10:00)
[2021-07-14] MEDS ORDERED: FUROSEMIDE 40 MG TABLET (FP) PO ONE (14:47)
[2021-07-14] MEDS: FENTANYL PATCH WASTE MC PRN (18:28)
[2021-07-14] MEDS: HYDROmorphone HCl 2 MG/ML VIAL IVPB PRN (19:41)
[2021-07-14] MEDS: MIRTAZAPINE 15 MG TABLET (FP) PO SCH (21:02)
[2021-07-15] MEDS: HEPARIN NA (PORCINE) 5,000 UNITS/ML 1ML VIAL SQ SCH ×3 (05:59→23:11)
[2021-07-15] MEDS: DOCUSATE SODIUM 100 MG CAPSULE (FP) PO SCH ×4 (05:59→23:00)
[2021-07-15] MEDS ORDERED: TBO-FILGRASTIM 300 MCG/0.5 ML DISP.SYRINGE SQ ONE (08:22)
[2021-07-15 08:43] LABS: HEMATOCRIT 27.9 % (32.4-45.2); MCHC 32.1 g/dl (32.0-36.0); MEAN CELL VOLUME 77.9 fl (80-96); MEAN PLT VOLUME 7.7 fl (7.5-11.1); PLATELET COUNT 366 10^3/uL (134-434); RBC 3.59 M/mm3 (3.60-5.2); RDW 18.2 % (11.6-15.6); WHITE BLOOD COUNT 23.8 K/mm3 (4.0-10.0)
[2021-07-15 08:45] LABS: INR 1.39 (0.83-1.09); PROTHROMBIN TIME (PATIENT) 16.3 SEC (9.7-13.0)
[2021-07-15 09:01] LABS: BLOOD UREA NITROGEN 9.7 mg/dL (7-18); CALCIUM 8.2 mg/dL (8.5-10.1); MAGNESIUM 2.2 mg/dL (1.8-2.4)
[2021-07-15 09:04] LABS: CREATININE 0.6 mg/dL (0.55-1.3)
[2021-07-15 09:06] LABS: BILIRUBIN,TOTAL 6.2 mg/dL (0.2-1); TOT PROT 5.7 g/dl (6.4-8.2)
[2021-07-15] MEDS: POLYETHYLENE GLYCOL (HEALTHYLAX) 3350 17 GM PACKET PO PRN (10:54)
[2021-07-15] MEDS: MULTIVITAMINS (DAILY MVI) TABLET (FP) PO SCH (10:54)
[2021-07-15] MEDS: PANTOPRAZOLE SODIUM 40 MG VIAL IVPUSH SCH (10:54)
[2021-07-15] MEDS: ALLOPURINOL 300 MG TABLET (FP) PO SCH (10:54)
[2021-07-15 11:16] LABS: ANISOCYTOSIS 1+; MACROCYTOSIS 0; PLATELET ESTIMATE NORMAL; TARGET CELLS 1+
[2021-07-15] MEDS: HYDROmorphone HCl 2 MG/ML VIAL IVPB PRN ×2 (14:49→23:16)
[2021-07-15] MEDS: MIRTAZAPINE 15 MG TABLET (FP) PO SCH (23:00)
[2021-07-16] MEDS: HEPARIN NA (PORCINE) 5,000 UNITS/ML 1ML VIAL SQ SCH ×3 (05:33→21:13)
[2021-07-16] MEDS: DOCUSATE SODIUM 100 MG CAPSULE (FP) PO SCH ×4 (05:33→21:13)
[2021-07-16 08:33] LABS: HEMATOCRIT 25.1 % (32.4-45.2); HEMOGLOBIN 8.2 GM/dL (10.7-15.3); MCH 25.2 pg (25.7-33.7); MCHC 32.5 g/dl (32.0-36.0); MEAN CELL VOLUME 77.4 fl (80-96); MEAN PLT VOLUME 7.8 fl (7.5-11.1); PLATELET COUNT 301 10^3/uL (134-434); RBC 3.24 M/mm3 (3.60-5.2); RDW 18.5 % (11.6-15.6); WHITE BLOOD COUNT 20.3 K/mm3 (4.0-10.0)
[2021-07-16 08:39] LABS: INR 1.53 (0.83-1.09); PROTHROMBIN TIME (PATIENT) 17.2 SEC (9.7-13.0)
[2021-07-16 08:42] LABS: ACTIVATED PTT 28.7 SECONDS (25.2-36.5)
[2021-07-16 09:09] LABS: BILIRUBIN,TOTAL 4.6 mg/dL (0.2-1); BLOOD UREA NITROGEN 11.7 mg/dL (7-18); TOT PROT 5.2 g/dl (6.4-8.2)
[2021-07-16 09:10] LABS: ALBUMIN 1.8 g/dl (3.4-5.0); CALCIUM 8.1 mg/dL (8.5-10.1); CREATININE 0.5 mg/dL (0.55-1.3); MAGNESIUM 2.2 mg/dL (1.8-2.4)
[2021-07-16] MEDS: ALLOPURINOL 300 MG TABLET (FP) PO SCH (09:21)
[2021-07-16] MEDS: MULTIVITAMINS (DAILY MVI) TABLET (FP) PO SCH (09:21)
[2021-07-16] MEDS: PANTOPRAZOLE SODIUM 40 MG VIAL IVPUSH SCH (09:21)
[2021-07-16 11:21] LABS: ANISOCYTOSIS 1+; MACROCYTOSIS 1+; PLATELET ESTIMATE NORMAL; TARGET CELLS 2+; TEAR DROP CELLS 1+
[2021-07-16] MEDS: HYDROmorphone HCl 2 MG/ML VIAL IVPB PRN ×2 (13:31→18:01)
[2021-07-16] MEDS ORDERED: PHYTONADIONE 10 MG/1 ML AMP SQ ONE ×2 (14:22→16:21)
[2021-07-16] MEDS: MIRTAZAPINE 15 MG TABLET (FP) PO SCH (21:13)
[2021-07-17] MEDS: DOCUSATE SODIUM 100 MG CAPSULE (FP) PO SCH ×4 (05:53→21:30)
[2021-07-17 07:59] LABS: HEMATOCRIT 24.4 % (32.4-45.2); HEMOGLOBIN 7.9 GM/dL (10.7-15.3); MCH 25.1 pg (25.7-33.7); MCHC 32.2 g/dl (32.0-36.0); MEAN CELL VOLUME 77.9 fl (80-96); MEAN PLT VOLUME 8.2 fl (7.5-11.1); PLATELET COUNT 273 10^3/uL (134-434); RBC 3.14 M/mm3 (3.60-5.2); RDW 18.6 % (11.6-15.6); WHITE BLOOD COUNT 15.5 K/mm3 (4.0-10.0)
[2021-07-17 08:18] LABS: CALCIUM 8.3 mg/dL (8.5-10.1)
[2021-07-17 08:20] LABS: ALBUMIN 1.7 g/dl (3.4-5.0); BLOOD UREA NITROGEN 9.2 mg/dL (7-18)
[2021-07-17 08:23] LABS: CREATININE 0.4 mg/dL (0.55-1.3)
[2021-07-17 08:25] LABS: BILIRUBIN,TOTAL 4.4 mg/dL (0.2-1)
[2021-07-17 08:30] LABS: INR 1.35 (0.83-1.09); PROTHROMBIN TIME (PATIENT) 15.9 SEC (9.7-13.0)
[2021-07-17] MEDS: MULTIVITAMINS (DAILY MVI) TABLET (FP) PO SCH (09:02)
[2021-07-17] MEDS: fentaNYL 25mcg/hr PATCH.TD72 TD SCH (09:02)
[2021-07-17] MEDS: ALLOPURINOL 300 MG TABLET (FP) PO SCH (09:02)
[2021-07-17] MEDS: PANTOPRAZOLE SODIUM 40 MG VIAL IVPUSH SCH (09:02)
[2021-07-17] MEDS: FENTANYL PATCH WASTE MC PRN (09:08)
[2021-07-17 11:31] LABS: ANISOCYTOSIS 2+; MACROCYTOSIS 1+; PLATELET ESTIMATE NORMAL; TARGET CELLS 1+
[2021-07-17] MEDS: HYDROmorphone HCl 2 MG/ML VIAL IVPB PRN ×2 (12:26→21:30)
[2021-07-17] MEDS ORDERED: LIDOCAINE HCL 1%, 10 MG/ML (20ML VIAL) ONE (13:09)
[2021-07-17] MEDS ORDERED: HEPARIN NA (PORCINE) 5,000 UNITS/ML 1ML VIAL ONE (13:09)
[2021-07-17] MEDS ORDERED: FUROSEMIDE 40 MG TABLET (FP) PO SCH (13:30)
[2021-07-17] MEDS ORDERED: ceFAZolin SODIUM 1 GM VIAL IVPB ONE (15:10)
[2021-07-17] MEDS ORDERED: LIDOCAINE HCL 1%, 10 MG/ML (20ML VIAL) NR ONE (15:38)
[2021-07-17] MEDS ORDERED: ONDANSETRON 4 MG/2 ML VIAL IVPUSH PRN (16:15)
[2021-07-17] MEDS ORDERED: LACTATED RINGERS SOLUTION 1,000 ML IV SCH (16:15)
[2021-07-17] MEDS ORDERED: FENTANYL PATCH WASTE MC PRN (16:16)
[2021-07-17] MEDS ORDERED: LACTULOSE 20 GM/30 ML UDC (FOR ORAL USE ONLY) PO PRN (16:16)
[2021-07-17] MEDS ORDERED: FENTANYL PATCH WASTE TD PRN (16:16)
[2021-07-17] MEDS ORDERED: POLYETHYLENE GLYCOL (HEALTHYLAX) 3350 17 GM PACKET PO PRN (16:16)
[2021-07-17] MEDS: MIRTAZAPINE 15 MG TABLET (FP) PO SCH (21:29)
[2021-07-17] MEDS: HEPARIN NA (PORCINE) 5,000 UNITS/ML 1ML VIAL SQ SCH (21:29)
[2021-07-17] MEDS ORDERED: PORTA CATH FLUSH 10 ML IVPUSH PRN (23:54)
[2021-07-18] MEDS: HEPARIN NA (PORCINE) 5,000 UNITS/ML 1ML VIAL SQ SCH ×3 (07:12→21:24)
[2021-07-18] MEDS: DOCUSATE SODIUM 100 MG CAPSULE (FP) PO SCH ×4 (07:12→21:24)
[2021-07-18] MEDS: HYDROmorphone HCl 2 MG/ML VIAL IVPB PRN ×2 (09:49→13:59)
[2021-07-18] MEDS: ALLOPURINOL 300 MG TABLET (FP) PO SCH (09:53)
[2021-07-18] MEDS: MULTIVITAMINS (DAILY MVI) TABLET (FP) PO SCH (09:53)
[2021-07-18] MEDS: PANTOPRAZOLE SODIUM 40 MG VIAL IVPUSH SCH (09:53)
[2021-07-18] MEDS ORDERED: FUROSEMIDE 40 MG TABLET (FP) PO SCH (10:00)
[2021-07-18 12:09] LABS: HEMATOCRIT 23.5 % (32.4-45.2); HEMOGLOBIN 7.6 GM/dL (10.7-15.3); MCH 25.4 pg (25.7-33.7); MCHC 32.6 g/dl (32.0-36.0); MEAN CELL VOLUME 77.9 fl (80-96); PLATELET COUNT 315 10^3/uL (134-434); RBC 3.01 M/mm3 (3.60-5.2); RDW 19.2 % (11.6-15.6); WHITE BLOOD COUNT 12.1 K/mm3 (4.0-10.0)
[2021-07-18] MEDS ORDERED: PORTA CATH FLUSH 10 ML IVPUSH PRN (12:10)
[2021-07-18 13:26] LABS: ANISOCYTOSIS 2+; MACROCYTOSIS 1+; PLATELET ESTIMATE NORMAL; TARGET CELLS 2+
[2021-07-18 14:36] VITALS: BMI 25.7
[2021-07-18 17:23] LABS: ALBUMIN 1.6 g/dl (3.4-5.0); BILIRUBIN,TOTAL 4.4 mg/dL (0.2-1); BLOOD UREA NITROGEN 10.9 mg/dL (7-18); CALCIUM 7.9 mg/dL (8.5-10.1); CREATININE 0.5 mg/dL (0.55-1.3)
[2021-07-18] MEDS: HYDROmorphone HCL 2 MG TABLET PO PRN (18:03)
[2021-07-18] MEDS ORDERED: FUROSEMIDE 40 MG/4 ML INJECTABLE VIAL IVPUSH ONE (21:00)
[2021-07-18] MEDS: MIRTAZAPINE 15 MG TABLET (FP) PO SCH (21:25)
[2021-07-19] MEDS: DOCUSATE SODIUM 100 MG CAPSULE (FP) PO SCH ×2 (06:27→14:56)
[2021-07-19] MEDS: HEPARIN NA (PORCINE) 5,000 UNITS/ML 1ML VIAL SQ SCH ×2 (06:27→14:56)
[2021-07-19 07:28] LABS: HEMATOCRIT 26.4 % (32.4-45.2); HEMOGLOBIN 8.7 GM/dL (10.7-15.3); MCH 25.9 pg (25.7-33.7); MCHC 32.9 g/dl (32.0-36.0); MEAN CELL VOLUME 78.7 fl (80-96); MEAN PLT VOLUME 7.8 fl (7.5-11.1); PLATELET COUNT 286 10^3/uL (134-434); RBC 3.36 M/mm3 (3.60-5.2); RDW 20.1 % (11.6-15.6); WHITE BLOOD COUNT 11.1 K/mm3 (4.0-10.0)
[2021-07-19 09:30] LABS: ALBUMIN 1.6 g/dl (3.4-5.0); BILIRUBIN,TOTAL 5.6 mg/dL (0.2-1); BLOOD UREA NITROGEN 12.1 mg/dL (7-18); CALCIUM 7.9 mg/dL (8.5-10.1); CREATININE 0.5 mg/dL (0.55-1.3)
[2021-07-19 10:12] LABS: ANISOCYTOSIS 1+; MACROCYTOSIS 1+; PLATELET ESTIMATE NORMAL; TARGET CELLS 1+
[2021-07-19 10:17] VITALS: BP 111/71; PULSE 105; TEMP 98.2
[2021-07-19] MEDS: HYDROmorphone HCL 2 MG TABLET PO PRN (10:26)
[2021-07-19] MEDS: PANTOPRAZOLE SODIUM 40 MG VIAL IVPUSH SCH (10:30)
[2021-07-19] MEDS: MULTIVITAMINS (DAILY MVI) TABLET (FP) PO SCH (10:31)
[2021-07-19] MEDS: ALLOPURINOL 300 MG TABLET (FP) PO SCH (10:31)
[2021-07-19] MEDS ORDERED: FENTANYL PATCH WASTE MC PRN (15:56)
[2021-07-19] MEDS ORDERED: fentaNYL 12mcg/hr PATCH.TD72 TD SCH (16:00)
[2021-07-19] MEDS ORDERED: fentaNYL 25mcg/hr PATCH.TD72 TD SCH (16:00)
[2021-07-19 17:02] LABS: TOT PROT 4.8 g/dl (6.4-8.2)
[2021-07-20] MEDS ORDERED: fentaNYL 25mcg/hr PATCH.TD72 TD SCH (09:30)
[2021-07-20] MEDS ORDERED: FUROSEMIDE 20 MG TABLET (FP) PO SCH ×2 (10:00)
== END 2021-07-19 18:00 | disposition home health service (06) | DRG 375 ==
LOC: JER 15:13 → JERBED 18:07 → J7W 07-07 02:07
PROVIDERS: ADMIT Internal Medicine; ATTEND Nurse Practitioner Family
PROC: 02HV33Z Insertion of Infusion Device into Superior Vena Cava, Percutaneous Approach (ICD-10-PCS; principal; 2021-07-07)
PROC: B518ZZA Fluoroscopy of Superior Vena Cava, Guidance (ICD-10-PCS; 2021-07-07)
PROC: 0FB13ZX Excision of Right Lobe Liver, Percutaneous Approach, Diagnostic (ICD-10-PCS; 2021-07-07)
PROC: 30233N1 Transfusion of Nonautologous Red Blood Cells into Peripheral Vein, Percutaneous Approach (ICD-10-PCS; 2021-07-13)
PROC: 0JH63XZ Insertion of Tunneled Vascular Access Device into Chest Subcutaneous Tissue and Fascia, Percutaneous Approach (ICD-10-PCS; 2021-07-17)
PROC: 05HY33Z Insertion of Infusion Device into Upper Vein, Percutaneous Approach (ICD-10-PCS; 2021-07-17)
DX: C18.9 Malignant neoplasm of colon, unspecified (principal); R18.8 Other ascites; C78.7 Secondary malignant neoplasm of liver and intrahepatic bile duct; E87.1 Hypo-osmolality and hyponatremia; I10 Essential (primary) hypertension; E78.5 Hyperlipidemia, unspecified; M46.1 Sacroiliitis, not elsewhere classified; D72.829 Elevated white blood cell count, unspecified; R11.2 Nausea with vomiting, unspecified; K59.09 Other constipation; R16.0 Hepatomegaly, not elsewhere classified; D35.02 Benign neoplasm of left adrenal gland; E87.5 Hyperkalemia
CPT/HCPCS: 36415; 36430; 36569; 71045-TC-FY; 71275-TC; 74176-TC; 76000-TC-FY; 76700-TC; 76942-TC; 77001-TC-FY; 80048; 80051; 80053; 81003; 82140; 82248; 82378; 82955; 83605; 83615; 83735; 83930; 83935; 84100; 84300; 84550; 85025; 85384; 85610; 85730; 86704; 86705; 86850; 86900; 86901; 86922; 87040; 87086; 87340; 87389; 87517; 87899; 88305-TC; 88341-TC; 93005; 93010; 94010; 94760; 94761; 97116-GP; 97162-GP; 99285-25; C1751; C9803; G0498; J1447; J1644; J2469; J9263; P9058; Q9967; U0003; U0005

== ENCOUNTER 2021-07-24 07:28 | Day surgery (SDC) | payer OTHER ==
[2021-07-24] MEDS ORDERED: SODIUM CHLORIDE 250 ML IV ONE (10:00)
[2021-07-24] MEDS ORDERED: PALONOSETRON HCL 0.25 MG/5 ML VIAL IVPUSH ONE (10:30)
[2021-07-24] MEDS ORDERED: DEXAMETHASONE SODIUM PHOSPHATE 20 MG in SODIUM CHLORIDE 50 ML IVPB ONE (10:30)
[2021-07-24] MEDS ORDERED: WATER IVPB ONE ×2 (11:00→17:00)
[2021-07-24] MEDS ORDERED: DEXTROSE 5% IVPB ONE ×2 (11:00→17:00)
[2021-07-24] MEDS ORDERED: LEUCOVORIN IVPB ONE ×2 (11:00→17:00)
[2021-07-24] MEDS ORDERED: FLUOROURACIL 4,275 MG in SODIUM CHLORIDE 6.5 ML CP ONE (13:00)
[2021-07-24] MEDS ORDERED: SODIUM CHLORIDE 500 ML IV STA (14:11)
[2021-07-24 14:28] LABS: HEMATOCRIT 31.4 % (32.4-45.2); HEMOGLOBIN 10.2 GM/dL (10.7-15.3); MCH 26.9 pg (25.7-33.7); MCHC 32.4 g/dl (32.0-36.0); MEAN PLT VOLUME 8.2 fl (7.5-11.1); PLATELET COUNT 680 10^3/uL (134-434); RBC 3.78 M/mm3 (3.60-5.2); RDW 24.1 % (11.6-15.6); WHITE BLOOD COUNT 8.7 K/mm3 (4.0-10.0)
[2021-07-24 15:07] LABS: CALCIUM 8.6 mg/dL (8.5-10.1)
[2021-07-24 15:08] LABS: ALBUMIN 1.9 g/dl (3.4-5.0); BLOOD UREA NITROGEN 10.4 mg/dL (7-18); INR 1.26 (0.83-1.09); MAGNESIUM 2.3 mg/dL (1.8-2.4); PROTHROMBIN TIME (PATIENT) 14.1 SEC (9.7-13.0)
[2021-07-24 15:10] LABS: CREATININE 0.5 mg/dL (0.55-1.3)
[2021-07-24 15:11] LABS: TOT PROT 5.6 g/dl (6.4-8.2)
[2021-07-24 15:12] LABS: BILIRUBIN,TOTAL 3.3 mg/dL (0.2-1)
[2021-07-24 15:48] LABS: ANISOCYTOSIS 1+; PLATELET ESTIMATE INCREASED; TARGET CELLS 2+
[2021-07-24 19:14] VITALS: TEMP 98.3
[2021-07-24 19:36] VITALS: BP 139/91; PULSE 94
== END 2021-07-24 19:37 | disposition home or self-care (01) ==
LOC: JONCCHEMO 07:28
PROVIDERS: ATTEND Internal Medicine Hematology & Oncology
DX: Z51.11 Encounter for antineoplastic chemotherapy (principal); C18.9 Malignant neoplasm of colon, unspecified; C79.9 Secondary malignant neoplasm of unspecified site
CPT/HCPCS: 36415; 80053; 83735; 85025; 85610; 85730; 96361; 96366; 96367; 96375; 96413; 96415; G0498; J2469; J9263

== ENCOUNTER 2021-07-31 09:35 | Observation (INO) | payer OTHER ==
[2021-07-31] MEDS ORDERED: LACTATED RINGERS SOLUTION 1000 ML INFUS.BAG IV ONE (10:30)
[2021-07-31] MEDS ORDERED: morphine CARPU-JECT 4 MG/1 ML DISP.SYRIN IVPUSH ONE ×2 (10:31→15:09)
[2021-07-31] MEDS ORDERED: morphine SULFATE 4 MG/ML VIAL ONE ×2 (11:04→15:14)
[2021-07-31 11:43] LABS: HEMATOCRIT 30.5 % (32.4-45.2); HEMOGLOBIN 9.9 GM/dL (10.7-15.3); MCH 26.5 pg (25.7-33.7); MCHC 32.3 g/dl (32.0-36.0); MEAN PLT VOLUME 7.5 fl (7.5-11.1); PLATELET COUNT 629 10^3/uL (134-434); RBC 3.72 M/mm3 (3.60-5.2); RDW 24.9 % (11.6-15.6); WHITE BLOOD COUNT 12.9 K/mm3 (4.0-10.0)
[2021-07-31 11:48] LABS: INR 1.32 (0.83-1.09); PROTHROMBIN TIME (PATIENT) 15.5 SEC (9.7-13.0)
[2021-07-31 11:58] LABS: CALCIUM 8.7 mg/dL (8.5-10.1)
[2021-07-31 11:59] LABS: BLOOD UREA NITROGEN 5.9 mg/dL (7-18)
[2021-07-31 12:02] LABS: CREATININE 0.4 mg/dL (0.55-1.3)
[2021-07-31 12:03] LABS: TOT PROT 5.7 g/dl (6.4-8.2)
[2021-07-31 12:41] LABS: ANISOCYTOSIS 1+; MACROCYTOSIS 1+; PLATELET ESTIMATE INCREASED; TARGET CELLS 1+
[2021-07-31] MEDS ORDERED: morphine SULFATE 4 MG/ML VIAL IVPUSH PRN (18:32)
[2021-07-31] MEDS ORDERED: FENTANYL PATCH WASTE MC PRN (18:32)
[2021-07-31] MEDS ORDERED: LACTULOSE 20 GM/30 ML UDC (FOR ORAL USE ONLY) PO PRN (18:33)
[2021-07-31] MEDS ORDERED: POLYETHYLENE GLYCOL (HEALTHYLAX) 3350 17 GM PACKET PO PRN (18:33)
[2021-07-31] MEDS ORDERED: fentaNYL 50mcg/hr PATCH.TD72 TD SCH ×2 (18:45→23:45)
[2021-07-31 20:33] LABS: EPI CELLS 29 /uL (0-25.1); HYALINE CASTS 1 /uL (0-3.1); PH,URINE 8.5 (5.0-8.0); URINE APPEARANCE Clear; URINE BACTERIA 44 /uL (0-1359); URINE BILIRUBIN Negative (NEGATIVE); URINE COLOR Yellow; URINE GLUCOSE (UA) Negative (NEGATIVE); URINE KETONE NEGATIVE (NEGATIVE); URINE LEUK ESTERASE Moderate (NEGATIVE); URINE NITRITE Negative (NEGATIVE); URINE PROTEIN Trace (NEGATIVE); URINE RBC 10 /uL (0-23.9); URINE UROBILINOGEN 0.2 mg/dL (0.2-1.0); URINE WBC 459 /uL (0-25.8)
[2021-07-31] MEDS: amLODIPine BESYLATE 10 MG TABLET (FP) PO SCH (23:43)
[2021-07-31] MEDS: DOCUSATE SODIUM 100 MG CAPSULE (FP) PO SCH (23:43)
[2021-08-01] MEDS: LISINOPRIL 10 MG TABLET PO SCH (07:07)
[2021-08-01] MEDS ORDERED: FUROSEMIDE 20 MG TABLET (FP) PO SCH (10:00)
[2021-08-01 11:07] LABS: HEMATOCRIT 27.5 % (32.4-45.2); MCH 26.9 pg (25.7-33.7); MCHC 32.5 g/dl (32.0-36.0); MEAN CELL VOLUME 82.6 fl (80-96); MEAN PLT VOLUME 7.5 fl (7.5-11.1); PLATELET COUNT 556 10^3/uL (134-434); RBC 3.33 M/mm3 (3.60-5.2); WHITE BLOOD COUNT 10.2 K/mm3 (4.0-10.0)
[2021-08-01 11:29] LABS: CALCIUM 8.2 mg/dL (8.5-10.1)
[2021-08-01 11:30] LABS: ALBUMIN 1.8 g/dl (3.4-5.0); BLOOD UREA NITROGEN 8.6 mg/dL (7-18); MAGNESIUM 2.3 mg/dL (1.8-2.4)
[2021-08-01 11:31] LABS: CREATININE 0.4 mg/dL (0.55-1.3)
[2021-08-01 11:32] LABS: TOT PROT 5.2 g/dl (6.4-8.2)
[2021-08-01 11:35] LABS: BILIRUBIN,TOTAL 2.5 mg/dL (0.2-1)
[2021-08-01] MEDS: ENOXAPARIN NA (PORCINE) 40 MG/0.4 ML DISP.SYRIN SQ SCH (11:43)
[2021-08-01] MEDS: MULTIVITAMINS (DAILY MVI) TABLET (FP) PO SCH (11:43)
[2021-08-01] MEDS: ALLOPURINOL 300 MG TABLET (FP) PO SCH (11:43)
[2021-08-01 11:59] LABS: ANISOCYTOSIS 0; MACROCYTOSIS 0; PLATELET ESTIMATE INCREASED; TARGET CELLS 2+
[2021-08-01 18:01] VITALS: BMI 25.9
[2021-08-01] MEDS: amLODIPine BESYLATE 10 MG TABLET (FP) PO SCH (21:27)
[2021-08-01] MEDS: DOCUSATE SODIUM 100 MG CAPSULE (FP) PO SCH (21:27)
[2021-08-01] MEDS ORDERED: ATORVASTATIN CA 10 MG TABLET (FP) PO SCH (22:00)
[2021-08-02] MEDS: LISINOPRIL 10 MG TABLET PO SCH (06:03)
[2021-08-02] MEDS: ENOXAPARIN NA (PORCINE) 40 MG/0.4 ML DISP.SYRIN SQ SCH (10:32)
[2021-08-02] MEDS: ALLOPURINOL 300 MG TABLET (FP) PO SCH (10:32)
[2021-08-02] MEDS: MULTIVITAMINS (DAILY MVI) TABLET (FP) PO SCH (10:32)
[2021-08-02 15:42] VITALS: BP 109/60; PULSE 89; TEMP 98.1
== END 2021-08-02 16:29 | disposition home or self-care (01) ==
LOC: JER 09:35 → JERBED 17:08 → INTOOBSV 17:08 → UNDOADMOB 17:08 → JERBED 17:59 → J8W 20:54
PROVIDERS: ADMIT Internal Medicine; ATTEND Nurse Practitioner Family
PROC: 3E033NZ Introduction of Analgesics, Hypnotics, Sedatives into Peripheral Vein, Percutaneous Approach (ICD-10-PCS; principal; 2021-07-31)
PROC: 3E013GC Introduction of Other Therapeutic Substance into Subcutaneous Tissue, Percutaneous Approach (ICD-10-PCS; 2021-07-31)
DX: C18.9 Malignant neoplasm of colon, unspecified (principal); C78.7 Secondary malignant neoplasm of liver and intrahepatic bile duct; R10.11 Right upper quadrant pain; I10 Essential (primary) hypertension; E78.5 Hyperlipidemia, unspecified; R60.0 Localized edema; Z29.9 Encounter for prophylactic measures, unspecified
CPT/HCPCS: 36415; 71045-TC-FY; 74177-TC; 76700-TC; 80053; 81003; 83605; 83690; 83735; 84100; 85025; 85610; 85730; 87086; 93005; 93010; 97116-GP; 97161-GP; 99285-25; C9803; G0378; Q9967; U0003; U0005

== ENCOUNTER 2021-08-09 07:14 | Day surgery (SDC) | payer OTHER ==
[2021-08-09 09:59] LABS: HEMATOCRIT 31.6 % (32.4-45.2); HEMOGLOBIN 10.2 GM/dL (10.7-15.3); MCH 25.9 pg (25.7-33.7); MCHC 32.2 g/dl (32.0-36.0); MEAN CELL VOLUME 80.4 fl (80-96); MEAN PLT VOLUME 7.2 fl (7.5-11.1); PLATELET COUNT 671 10^3/uL (134-434); RBC 3.93 M/mm3 (3.60-5.2); RDW 24.3 % (11.6-15.6); WHITE BLOOD COUNT 8.6 K/mm3 (4.0-10.0)
[2021-08-09 10:18] LABS: CALCIUM 9.2 mg/dL (8.5-10.1)
[2021-08-09 10:19] LABS: BLOOD UREA NITROGEN 3.7 mg/dL (7-18); MAGNESIUM 2.3 mg/dL (1.8-2.4)
[2021-08-09 10:22] LABS: CREATININE 0.5 mg/dL (0.55-1.3)
[2021-08-09 10:23] LABS: BILIRUBIN,TOTAL 1.5 mg/dL (0.2-1); TOT PROT 6.8 g/dl (6.4-8.2)
[2021-08-09 10:35] LABS: ALBUMIN 2.4 g/dl (3.4-5.0)
[2021-08-09 11:09] LABS: ANISOCYTOSIS 1+; MACROCYTOSIS 1+; PLATELET ESTIMATE INCREASED; TARGET CELLS 1+
[2021-08-09] MEDS ORDERED: SODIUM CHLORIDE 250 ML IV ONE (11:30)
[2021-08-09] MEDS ORDERED: DEXAMETHASONE SODIUM PHOSPHATE 20 MG in SODIUM CHLORIDE 50 ML IVPB ONE (12:00)
[2021-08-09] MEDS ORDERED: PALONOSETRON HCL 0.25 MG/5 ML VIAL IVPUSH ONE (12:00)
[2021-08-09] MEDS ORDERED: LEUCOVORIN INJECTION - 700 MG in DEXTROSE 5%-WATER - 250 ML IVPB ONE (12:30)
[2021-08-09] MEDS ORDERED: FLUOROURACIL 5,000 MG/100 ML VIAL IVPUSH ONE (14:30)
[2021-08-09] MEDS ORDERED: FLUOROURACIL 4,200 MG in SODIUM CHLORIDE 8 ML CP ONE (14:45)
[2021-08-09 18:24] VITALS: TEMP 98.3
[2021-08-09 18:39] VITALS: BP 130/84; PULSE 87
== END 2021-08-09 17:45 | disposition home or self-care (01) ==
LOC: JONCCHEMO 07:14
PROVIDERS: ATTEND Internal Medicine Hematology & Oncology
DX: Z51.11 Encounter for antineoplastic chemotherapy (principal); C18.9 Malignant neoplasm of colon, unspecified; C79.9 Secondary malignant neoplasm of unspecified site
CPT/HCPCS: 36415; 80053; 83735; 85025; 96366; 96367; 96375; 96411; 96413; 96415; G0498; J2469; J9263

== ENCOUNTER 2021-08-16 04:37 | Day surgery (SDC) | payer OTHER ==
[2021-08-15 17:19] VITALS: BMI 23.0
[2021-08-16] MEDS ORDERED: SODIUM CHLORIDE 500 ML IV ONE (14:00)
[2021-08-16] MEDS ORDERED: MIDAZOLAM HCL 2 MG/2 ML SINGLE DOSE VIAL IVPUSH ONE ×2 (14:12→15:15)
[2021-08-16 17:46] VITALS: TEMP 97.8
[2021-08-16 17:47] VITALS: BP 105/70; PULSE 98
== END 2021-08-16 17:30 | disposition home or self-care (01) ==
LOC: JASUSAT 04:37
PROVIDERS: ATTEND Internal Medicine Hematology & Oncology
PROC: 0FB13ZX Excision of Right Lobe Liver, Percutaneous Approach, Diagnostic (ICD-10-PCS; principal; 2021-08-16)
PROC: BF45ZZZ Ultrasonography of Liver (ICD-10-PCS; 2021-08-16)
DX: C18.9 Malignant neoplasm of colon, unspecified (principal); C78.7 Secondary malignant neoplasm of liver and intrahepatic bile duct; I10 Essential (primary) hypertension
CPT/HCPCS: 47000; 76942-TC; 87899

== ENCOUNTER 2021-08-23 07:14 | Day surgery (SDC) | payer OTHER ==
[2021-08-23] MEDS ORDERED: SODIUM CHLORIDE 250 ML IV ONE (09:30)
[2021-08-23 09:53] LABS: BASO % 1.1 % (0-2.0); EOS % 0.6 % (0-4.5); HEMOGLOBIN 10.1 GM/dL (10.7-15.3); LYMPH % 31.4 % (8-40); MCHC 32.5 g/dl (32.0-36.0); MEAN PLT VOLUME 7.1 fl (7.5-11.1); MONO % 13.8 % (3.8-10.2); NEUT % 53.1 % (42.8-82.8); PLATELET COUNT 415 10^3/uL (134-434); RBC 3.88 M/mm3 (3.60-5.2); RDW 24.5 % (11.6-15.6); WHITE BLOOD COUNT 5.7 K/mm3 (4.0-10.0)
[2021-08-23] MEDS ORDERED: DEXAMETHASONE SODIUM PHOSPHATE 20 MG in SODIUM CHLORIDE 50 ML IVPB ONE (10:00)
[2021-08-23] MEDS ORDERED: PALONOSETRON HCL 0.25 MG/5 ML VIAL IVPUSH ONE (10:00)
[2021-08-23 10:17] LABS: CALCIUM 9.4 mg/dL (8.5-10.1)
[2021-08-23 10:18] LABS: BLOOD UREA NITROGEN 10.2 mg/dL (7-18); MAGNESIUM 2.3 mg/dL (1.8-2.4)
[2021-08-23 10:21] LABS: CREATININE 0.5 mg/dL (0.55-1.3)
[2021-08-23 10:23] LABS: BILIRUBIN,TOTAL 0.8 mg/dL (0.2-1)
[2021-08-23] MEDS ORDERED: LEUCOVORIN INJECTION - 700 MG in DEXTROSE 5%-WATER - 250 ML IVPB ONE (10:30)
[2021-08-23 10:38] LABS: ANISOCYTOSIS 1+; MACROCYTOSIS 1+; PLATELET ESTIMATE INCREASED; TARGET CELLS 1+
[2021-08-23] MEDS ORDERED: SODIUM CHLORIDE 500 ML IV STA (11:08)
[2021-08-23] MEDS ORDERED: LEUCOVORIN INJECTION - 672 MG in DEXTROSE 5%-WATER - 250 ML IVPB ONE (11:37)
[2021-08-23] MEDS ORDERED: LEUCOVORIN IVPB ONE (12:05)
[2021-08-23] MEDS ORDERED: WATER IVPB ONE (12:05)
[2021-08-23] MEDS ORDERED: OXALIPLATIN IV ONE (12:05)
[2021-08-23] MEDS ORDERED: WATER IV ONE (12:05)
[2021-08-23] MEDS ORDERED: DEXTROSE 5% IVPB ONE (12:05)
[2021-08-23] MEDS ORDERED: DEXTROSE 5% IV ONE (12:05)
[2021-08-23] MEDS ORDERED: FLUOROURACIL 4,025 MG in SODIUM CHLORIDE 11.5 ML CP ONE (12:30)
[2021-08-23] MEDS ORDERED: FLUOROURACIL 2,500 MG/50 ML VIAL IVPUSH ONE (12:30)
[2021-08-23 19:08] VITALS: BP 138/93; PULSE 115; TEMP 98.2
[2021-08-23] MEDS ORDERED: PORTA CATH FLUSH 10 ML IVPUSH ONE (19:08)
== END 2021-08-23 19:12 | disposition home or self-care (01) ==
LOC: JONCCHEMO 07:14
PROVIDERS: ATTEND Internal Medicine Hematology & Oncology
PROC: 3E04305 Introduction of Other Antineoplastic into Central Vein, Percutaneous Approach (ICD-10-PCS; principal; 2021-08-23)
PROC: 3E04305 Introduction of Other Antineoplastic into Central Vein, Percutaneous Approach (ICD-10-PCS; 2021-08-23)
PROC: 3E043GC Introduction of Other Therapeutic Substance into Central Vein, Percutaneous Approach (ICD-10-PCS; 2021-08-23)
PROC: 3E0437Z Introduction of Electrolytic and Water Balance Substance into Central Vein, Percutaneous Approach (ICD-10-PCS; 2021-08-23)
DX: Z51.11 Encounter for antineoplastic chemotherapy (principal); C18.9 Malignant neoplasm of colon, unspecified; C78.7 Secondary malignant neoplasm of liver and intrahepatic bile duct; I10 Essential (primary) hypertension
CPT/HCPCS: 36415; 80053; 82378; 83735; 85025; 96361; 96366; 96367; 96375; 96413; 96415; G0498; J2469; J9263

== ENCOUNTER 2021-08-25 12:59 | Day surgery (SDC) | payer OTHER ==
[~2021-08-25 12:59] MED LIST: ONDANSETRON 4 MG/2 ML VIAL IVPB ONE; PANTOPRAZOLE SODIUM 40 MG VIAL IVPB ONE; SODIUM CHLORIDE 500 ML IV STA
[2021-08-25] MEDS ORDERED: SODIUM CHLORIDE 500 ML IV STA (14:43)
[2021-08-25] MEDS ORDERED: PORTA CATH FLUSH 10 ML IVPUSH ONE (17:12)
[2021-08-25 17:13] VITALS: BP 118/83; PULSE 114; TEMP 98
== END 2021-08-25 16:15 | disposition home or self-care (01) ==
LOC: J7W 12:59 → JONCNONCHE 12:59
PROVIDERS: ATTEND Internal Medicine Hematology & Oncology
PROC: 3E04329 Introduction of Other Anti-infective into Central Vein, Percutaneous Approach (ICD-10-PCS; principal; 2021-08-25)
PROC: 3E0437Z Introduction of Electrolytic and Water Balance Substance into Central Vein, Percutaneous Approach (ICD-10-PCS; 2021-08-25)
DX: Z76.89 Persons encountering health services in other specified circumstances (principal); C18.9 Malignant neoplasm of colon, unspecified; C79.9 Secondary malignant neoplasm of unspecified site
CPT/HCPCS: 96361; 96365

== ENCOUNTER 2021-09-06 07:32 | Day surgery (SDC) | payer OTHER ==
[2021-09-06] MEDS ORDERED: SODIUM CHLORIDE 250 ML IV ONE (09:30)
[2021-09-06 09:44] LABS: BASO % 0.7 % (0-2.0); EOS % 0.3 % (0-4.5); HEMATOCRIT 33.8 % (32.4-45.2); HEMOGLOBIN 10.3 GM/dL (10.7-15.3); LYMPH % 36.9 % (8-40); MCH 24.3 pg (25.7-33.7); MCHC 30.5 g/dl (32.0-36.0); MEAN CELL VOLUME 79.9 fl (80-96); MEAN PLT VOLUME 7.6 fl (7.5-11.1); MONO % 12.8 % (3.8-10.2); NEUT % 49.3 % (42.8-82.8); PLATELET COUNT 364 10^3/uL (134-434); RBC 4.23 M/mm3 (3.60-5.2); RDW 24.1 % (11.6-15.6); WHITE BLOOD COUNT 4.8 K/mm3 (4.0-10.0)
[2021-09-06] MEDS ORDERED: PALONOSETRON HCL 0.25 MG/5 ML VIAL IVPUSH ONE (10:00)
[2021-09-06] MEDS ORDERED: DEXAMETHASONE SODIUM PHOSPHATE 20 MG in SODIUM CHLORIDE 50 ML IVPB ONE (10:00)
[2021-09-06 10:19] LABS: ALBUMIN 3.4 g/dl (3.4-5.0); CALCIUM 9.4 mg/dL (8.5-10.1); MAGNESIUM 2.5 mg/dL (1.8-2.4)
[2021-09-06 10:20] LABS: BLOOD UREA NITROGEN 14.7 mg/dL (7-18)
[2021-09-06 10:23] LABS: CREATININE 0.6 mg/dL (0.55-1.3)
[2021-09-06 10:24] LABS: BILIRUBIN,TOTAL 0.6 mg/dL (0.2-1); TOT PROT 7.2 g/dl (6.4-8.2)
[2021-09-06] MEDS ORDERED: SODIUM CHLORIDE 250 ML IV STA (10:29)
[2021-09-06] MEDS ORDERED: LEUCOVORIN INJECTION - 672 MG in DEXTROSE 5%-WATER - 250 ML IVPB ONE (10:30)
[2021-09-06] MEDS ORDERED: FLUOROURACIL 2,500 MG/50 ML VIAL IVPUSH ONE (12:30)
[2021-09-06 13:00] LABS: ANISOCYTOSIS 2+; MACROCYTOSIS 1+; PLATELET ESTIMATE NORMAL; TARGET CELLS 2+
[2021-09-06] MEDS ORDERED: FLUOROURACIL 4,025 MG in SODIUM CHLORIDE 11.5 ML CP ONE (13:00)
[2021-09-08 15:25] VITALS: BP 113/84; PULSE 105; TEMP 98.4
== END 2021-09-06 16:00 | disposition home or self-care (01) ==
LOC: JONCCHEMO 07:32
PROVIDERS: ATTEND Internal Medicine Hematology & Oncology
PROC: 3E04305 Introduction of Other Antineoplastic into Central Vein, Percutaneous Approach (ICD-10-PCS; principal; 2021-09-06)
PROC: 3E04305 Introduction of Other Antineoplastic into Central Vein, Percutaneous Approach (ICD-10-PCS; 2021-09-06)
PROC: 3E043GC Introduction of Other Therapeutic Substance into Central Vein, Percutaneous Approach (ICD-10-PCS; 2021-09-06)
PROC: 3E0437Z Introduction of Electrolytic and Water Balance Substance into Central Vein, Percutaneous Approach (ICD-10-PCS; 2021-09-06)
DX: Z51.11 Encounter for antineoplastic chemotherapy (principal); C18.9 Malignant neoplasm of colon, unspecified; C78.7 Secondary malignant neoplasm of liver and intrahepatic bile duct
CPT/HCPCS: 36415; 80053; 83735; 85025; 96361; 96368; 96375; 96413; 96415; G0498; J2469; J9263

== ENCOUNTER 2021-09-08 07:23 | Day surgery (SDC) | payer OTHER ==
[2021-09-08 16:32] VITALS: BP 107/78; PULSE 111; TEMP 98.5
== END 2021-09-08 12:50 | disposition home or self-care (01) ==
LOC: JONCNONCHE 07:23
PROVIDERS: ATTEND Internal Medicine Hematology & Oncology
PROC: 2W54XYZ Removal of Other Device on Chest Wall (ICD-10-PCS; principal; 2021-09-08)
DX: Z53.8 Procedure and treatment not carried out for other reasons (principal)
CPT/HCPCS: 96379

== ENCOUNTER 2021-09-20 07:08 | Day surgery (SDC) | payer OTHER ==
[2021-09-20 09:25] LABS: BASO % 0.8 % (0-2.0); EOS % 0.4 % (0-4.5); HEMOGLOBIN 9.4 GM/dL (10.7-15.3); LYMPH % 37.1 % (8-40); MCH 24.6 pg (25.7-33.7); MCHC 31.5 g/dl (32.0-36.0); MEAN CELL VOLUME 78.2 fl (80-96); MEAN PLT VOLUME 7.3 fl (7.5-11.1); MONO % 13.2 % (3.8-10.2); NEUT % 48.5 % (42.8-82.8); PLATELET COUNT 363 10^3/uL (134-434); RBC 3.84 M/mm3 (3.60-5.2); RDW 23.2 % (11.6-15.6); WHITE BLOOD COUNT 3.7 K/mm3 (4.0-10.0)
[2021-09-20 09:48] LABS: ALBUMIN 3.5 g/dl (3.4-5.0); BLOOD UREA NITROGEN 16.4 mg/dL (7-18); CALCIUM 9.2 mg/dL (8.5-10.1)
[2021-09-20 09:49] LABS: MAGNESIUM 2.3 mg/dL (1.8-2.4)
[2021-09-20 09:52] LABS: CREATININE 0.7 mg/dL (0.55-1.3)
[2021-09-20 09:53] LABS: BILIRUBIN,TOTAL 0.7 mg/dL (0.2-1); TOT PROT 7.2 g/dl (6.4-8.2)
[2021-09-20] MEDS ORDERED: SODIUM CHLORIDE 250 ML IV ONE (10:00)
[2021-09-20 10:29] LABS: ANISOCYTOSIS 1+; MACROCYTOSIS 0; PLATELET ESTIMATE NORMAL; TARGET CELLS 1+
[2021-09-20] MEDS ORDERED: DEXAMETHASONE SODIUM PHOSPHATE 20 MG in SODIUM CHLORIDE 50 ML IVPB ONE (10:30)
[2021-09-20] MEDS ORDERED: PALONOSETRON HCL 0.25 MG/5 ML VIAL IVPUSH ONE (10:30)
[2021-09-20] MEDS ORDERED: LEUCOVORIN INJECTION - 668 MG in DEXTROSE 5%-WATER - 250 ML IVPB ONE (11:00)
[2021-09-20] MEDS ORDERED: FLUOROURACIL 2,500 MG/50 ML VIAL IVPUSH ONE (13:00)
[2021-09-20] MEDS ORDERED: FLUOROURACIL 4,000 MG in SODIUM CHLORIDE 12 ML CP ONE (13:15)
[2021-09-20 18:13] VITALS: BP 128/78; PULSE 98; TEMP 98.4
== END 2021-09-20 15:00 | disposition home or self-care (01) ==
LOC: JONCCHEMO 07:08
PROVIDERS: ATTEND Internal Medicine Hematology & Oncology
DX: Z51.11 Encounter for antineoplastic chemotherapy (principal); C18.9 Malignant neoplasm of colon, unspecified; C78.7 Secondary malignant neoplasm of liver and intrahepatic bile duct
CPT/HCPCS: 36415; 80053; 82378; 83735; 85025; 96361; 96366; 96367; 96375; 96411; 96413; 96415; G0498; J2469; J9263

== ENCOUNTER 2021-10-04 08:58 | Day surgery (SDC) | payer OTHER ==
[2021-10-04 08:59] LABS: BASO % 0.9 % (0-2.0); EOS % 0.4 % (0-4.5); HEMATOCRIT 28.7 % (32.4-45.2); HEMOGLOBIN 8.9 GM/dL (10.7-15.3); MCH 24.4 pg (25.7-33.7); MEAN CELL VOLUME 78.7 fl (80-96); MEAN PLT VOLUME 7.1 fl (7.5-11.1); MONO % 13.1 % (3.8-10.2); NEUT % 48.6 % (42.8-82.8); PLATELET COUNT 265 10^3/uL (134-434); RBC 3.64 M/mm3 (3.60-5.2); RDW 23.3 % (11.6-15.6); WHITE BLOOD COUNT 3.9 K/mm3 (4.0-10.0)
[2021-10-04 09:15] LABS: CALCIUM 9.2 mg/dL (8.5-10.1)
[2021-10-04 09:16] LABS: ALBUMIN 3.4 g/dl (3.4-5.0); BLOOD UREA NITROGEN 13.5 mg/dL (7-18)
[2021-10-04 09:18] LABS: CREATININE 0.6 mg/dL (0.55-1.3)
[2021-10-04 09:20] LABS: BILIRUBIN,TOTAL 0.6 mg/dL (0.2-1)
[2021-10-04] MEDS ORDERED: SODIUM CHLORIDE 250 ML IV ONE (10:00)
[2021-10-04] MEDS ORDERED: DEXAMETHASONE SODIUM PHOSPHATE 20 MG in SODIUM CHLORIDE 50 ML IVPB ONE (10:30)
[2021-10-04] MEDS ORDERED: PALONOSETRON HCL 0.25 MG/5 ML VIAL IVPUSH ONE (10:30)
[2021-10-04 10:56] LABS: ANISOCYTOSIS 1+; MACROCYTOSIS 0; PLATELET ESTIMATE NORMAL
[2021-10-04] MEDS ORDERED: SODIUM CHLORIDE 500 ML IV ONE (11:00)
[2021-10-04] MEDS ORDERED: LEUCOVORIN INJECTION - 668 MG in DEXTROSE 5%-WATER - 250 ML IVPB ONE (11:00)
[2021-10-04] MEDS ORDERED: SODIUM CHLORIDE IVPB ONE (12:00)
[2021-10-04] MEDS ORDERED: BEVACIZUMAB IVPB ONE (12:00)
[2021-10-04] MEDS ORDERED: FLUOROURACIL 2,500 MG/50 ML VIAL IVPUSH ONE (13:00)
[2021-10-04] MEDS ORDERED: FLUOROURACIL 4,000 MG in SODIUM CHLORIDE 12 ML CP ONE (13:15)
[2021-10-04 18:27] VITALS: BP 142/96; PULSE 120; TEMP 98.3
[2021-10-04] MEDS ORDERED: PORTA CATH FLUSH 10 ML IVPUSH ONE (18:27)
== END 2021-10-04 18:29 | disposition home or self-care (01) ==
LOC: JONCCHEMO 08:58
PROVIDERS: ATTEND Internal Medicine Hematology & Oncology
DX: Z51.11 Encounter for antineoplastic chemotherapy (principal); C18.9 Malignant neoplasm of colon, unspecified; C78.7 Secondary malignant neoplasm of liver and intrahepatic bile duct
CPT/HCPCS: 36415; 80053; 85025; 96361; 96367; 96375; 96411; 96413; 96417; G0498; J2469; J9035; J9263

== ENCOUNTER 2021-10-06 06:55 | Day surgery (SDC) | payer OTHER ==
[2021-10-06 18:06] VITALS: BP 113/76; PULSE 125; TEMP 98.5
== END 2021-10-06 16:15 | disposition home or self-care (01) ==
LOC: JONCNONCHE 06:55
PROVIDERS: ATTEND Internal Medicine Hematology & Oncology
PROC: 2W54XYZ Removal of Other Device on Chest Wall (ICD-10-PCS; principal; 2021-10-06)
DX: Z53.8 Procedure and treatment not carried out for other reasons (principal)
CPT/HCPCS: 96379

== ENCOUNTER 2021-10-18 07:15 | Day surgery (SDC) | payer OTHER ==
[2021-10-18] MEDS ORDERED: SODIUM CHLORIDE 500 ML IV ONE (09:00)
[2021-10-18 10:12] LABS: HEMATOCRIT 29.5 % (32.4-45.2); HEMOGLOBIN 9.3 GM/dL (10.7-15.3); MCH 24.3 pg (25.7-33.7); MCHC 31.4 g/dl (32.0-36.0); MEAN CELL VOLUME 77.3 fl (80-96); MEAN PLT VOLUME 7.1 fl (7.5-11.1); PLATELET COUNT 272 10^3/uL (134-434); RBC 3.82 M/mm3 (3.60-5.2); WHITE BLOOD COUNT 3.7 K/mm3 (4.0-10.0)
[2021-10-18 10:28] LABS: CALCIUM 9.8 mg/dL (8.5-10.1)
[2021-10-18 10:29] LABS: ALBUMIN 3.5 g/dl (3.4-5.0); BLOOD UREA NITROGEN 20.5 mg/dL (7-18)
[2021-10-18] MEDS ORDERED: PALONOSETRON HCL 0.25 MG/5 ML VIAL IVPUSH ONE (10:30)
[2021-10-18] MEDS ORDERED: DEXAMETHASONE SODIUM PHOSPHATE 20 MG in SODIUM CHLORIDE 50 ML IVPB ONE (10:30)
[2021-10-18 10:31] LABS: CREATININE 0.7 mg/dL (0.55-1.3)
[2021-10-18 10:34] LABS: BILIRUBIN,TOTAL 0.5 mg/dL (0.2-1); TOT PROT 7.4 g/dl (6.4-8.2)
[2021-10-18 10:52] LABS: ANISOCYTOSIS 2+; MACROCYTOSIS 0
[2021-10-18] MEDS ORDERED: BEVACIZUMAB AWWB IVPB ONE ×2 (11:00→14:00)
[2021-10-18] MEDS ORDERED: SODIUM CHLORIDE IVPB ONE ×2 (11:00→14:00)
[2021-10-18] MEDS ORDERED: LEUCOVORIN IVPB ONE (12:00)
[2021-10-18] MEDS ORDERED: DEXTROSE 5% IVPB ONE (12:00)
[2021-10-18] MEDS ORDERED: WATER IVPB ONE (12:00)
[2021-10-18] MEDS ORDERED: FLUOROURACIL 2,500 MG/50 ML VIAL IVPUSH ONE (14:00)
[2021-10-18] MEDS ORDERED: FLUOROURACIL 4,275 MG in SODIUM CHLORIDE 6.5 ML CP ONE (14:15)
[2021-10-18 16:51] VITALS: BP 120/85; PULSE 113; TEMP 98.5
[2021-10-18] MEDS ORDERED: PORTA CATH FLUSH 10 ML IVPUSH ONE (16:51)
== END 2021-10-18 17:16 | disposition home or self-care (01) ==
LOC: JONCCHEMO 07:15
PROVIDERS: ATTEND Internal Medicine Hematology & Oncology
DX: Z12.11 Encounter for screening for malignant neoplasm of colon (principal); C18.9 Malignant neoplasm of colon, unspecified; C78.7 Secondary malignant neoplasm of liver and intrahepatic bile duct
CPT/HCPCS: 36415; 80053; 82378; 85025; 96361; 96366; 96367; 96375; 96411; 96413; 96415; 96417; G0498; J2469; J9263; Q5107

== ENCOUNTER 2021-11-01 07:24 | Day surgery (SDC) | payer OTHER ==
[2021-11-01] MEDS ORDERED: SODIUM CHLORIDE 500 ML IV ONE (09:00)
[2021-11-01 09:24] LABS: BASO % 0.5 % (0-2.0); EOS % 0.3 % (0-4.5); HEMATOCRIT 28.8 % (32.4-45.2); HEMOGLOBIN 9.3 GM/dL (10.7-15.3); LYMPH % 32.9 % (8-40); MCH 24.7 pg (25.7-33.7); MCHC 32.2 g/dl (32.0-36.0); MEAN CELL VOLUME 76.9 fl (80-96); MONO % 14.3 % (3.8-10.2); PLATELET COUNT 254 10^3/uL (134-434); RBC 3.75 M/mm3 (3.60-5.2); RDW 23.2 % (11.6-15.6); WHITE BLOOD COUNT 3.7 K/mm3 (4.0-10.0)
[2021-11-01 09:51] LABS: ALBUMIN 3.4 g/dl (3.4-5.0); CALCIUM 9.5 mg/dL (8.5-10.1)
[2021-11-01 09:52] LABS: BLOOD UREA NITROGEN 16.1 mg/dL (7-18)
[2021-11-01 09:55] LABS: CREATININE 0.7 mg/dL (0.55-1.3)
[2021-11-01 09:56] LABS: BILIRUBIN,TOTAL 0.6 mg/dL (0.2-1); TOT PROT 7.2 g/dl (6.4-8.2)
[2021-11-01] MEDS ORDERED: DEXAMETHASONE SODIUM PHOSPHATE 20 MG in SODIUM CHLORIDE 50 ML IVPB ONE (10:00)
[2021-11-01] MEDS ORDERED: PALONOSETRON HCL 0.25 MG/5 ML VIAL IVPUSH ONE (10:00)
[2021-11-01 10:06] LABS: ANISOCYTOSIS 2+; MACROCYTOSIS 2+
[2021-11-01] MEDS ORDERED: BEVACIZUMAB AWWB IVPB ONE (10:30)
[2021-11-01] MEDS ORDERED: SODIUM CHLORIDE IVPB ONE (10:30)
[2021-11-01] MEDS ORDERED: LEUCOVORIN INJECTION - 704 MG in DEXTROSE 5%-WATER - 250 ML IVPB ONE (11:30)
[2021-11-01] MEDS ORDERED: FLUOROURACIL 500 MG/10 ML VIAL IVPUSH ONE (13:30)
[2021-11-01] MEDS ORDERED: FLUOROURACIL 4,225 MG in SODIUM CHLORIDE 7.5 ML CP ONE (14:00)
[2021-11-01 17:54] VITALS: TEMP 98.2
[2021-11-01 18:08] VITALS: BP 151/85; PULSE 108
== END 2021-11-01 15:30 | disposition home or self-care (01) ==
LOC: JONCCHEMO 07:24
PROVIDERS: ATTEND Internal Medicine Hematology & Oncology
PROC: 3E04305 Introduction of Other Antineoplastic into Central Vein, Percutaneous Approach (ICD-10-PCS; principal; 2021-11-01)
PROC: 3E043GC Introduction of Other Therapeutic Substance into Central Vein, Percutaneous Approach (ICD-10-PCS; 2021-11-01)
PROC: 3E0437Z Introduction of Electrolytic and Water Balance Substance into Central Vein, Percutaneous Approach (ICD-10-PCS; 2021-11-01)
DX: Z51.11 Encounter for antineoplastic chemotherapy (principal); C18.9 Malignant neoplasm of colon, unspecified; C78.7 Secondary malignant neoplasm of liver and intrahepatic bile duct; I10 Essential (primary) hypertension
CPT/HCPCS: 36415; 80053; 85025; 96361; 96366; 96367; 96375; 96413; 96415; 96417; G0498; J2469; J9190; J9263; Q5107

== ENCOUNTER 2021-11-15 07:58 | Day surgery (SDC) | payer OTHER ==
[2021-11-15] MEDS ORDERED: SODIUM CHLORIDE 500 ML IV ONE (09:00)
[2021-11-15 09:19] LABS: ALBUMIN 3.2 g/dl (3.4-5.0); BLOOD UREA NITROGEN 11.8 mg/dL (7-18); MAGNESIUM 2.2 mg/dL (1.8-2.4)
[2021-11-15 09:20] LABS: HEMATOCRIT 29.6 % (32.4-45.2); MCH 23.2 pg (25.7-33.7); MCHC 30.4 g/dl (32.0-36.0); MEAN CELL VOLUME 76.2 fl (80-96); MEAN PLT VOLUME 7.8 fl (7.5-11.1); PLATELET COUNT 267 10^3/uL (134-434); RBC 3.88 M/mm3 (3.60-5.2); RDW 24.4 % (11.6-15.6); WHITE BLOOD COUNT 3.1 K/mm3 (4.0-10.0)
[2021-11-15 09:22] LABS: CREATININE 0.7 mg/dL (0.55-1.3)
[2021-11-15 09:24] LABS: BILIRUBIN,TOTAL 0.4 mg/dL (0.2-1); TOT PROT 6.9 g/dl (6.4-8.2)
[2021-11-15 10:01] LABS: ANISOCYTOSIS 2+; MACROCYTOSIS 1+
[2021-11-15] MEDS ORDERED: DEXAMETHASONE SODIUM PHOSPHATE 20 MG in SODIUM CHLORIDE 50 ML IVPB ONE (10:30)
[2021-11-15] MEDS ORDERED: PALONOSETRON HCL 0.25 MG/5 ML VIAL IVPUSH ONE (10:30)
[2021-11-15] MEDS ORDERED: SODIUM CHLORIDE IVPB ONE ×2 (11:00)
[2021-11-15] MEDS ORDERED: BEVACIZUMAB AWWB IVPB ONE ×2 (11:00)
[2021-11-15] MEDS ORDERED: OXALIPLATIN IV ONE (11:30)
[2021-11-15] MEDS ORDERED: WATER IV ONE (11:30)
[2021-11-15] MEDS ORDERED: DEXTROSE 5% IV ONE (11:30)
[2021-11-15] MEDS ORDERED: DEXTROSE 5% IVPB ONE (12:00)
[2021-11-15] MEDS ORDERED: LEUCOVORIN IVPB ONE (12:00)
[2021-11-15] MEDS ORDERED: WATER IVPB ONE (12:00)
[2021-11-15] MEDS ORDERED: FLUOROURACIL 500 MG/10 ML VIAL IVPUSH ONE (14:00)
[2021-11-15] MEDS ORDERED: SODIUM CHLORIDE CP ONE (14:15)
[2021-11-15] MEDS ORDERED: FLUOROURACIL CP ONE (14:15)
[2021-11-15 16:48] VITALS: TEMP 98.3
[2021-11-15] MEDS ORDERED: PORTA CATH FLUSH 10 ML IVPUSH ONE ×2 (16:48→17:50)
[2021-11-15 17:50] VITALS: BP 147/88; PULSE 101
== END 2021-11-15 17:30 | disposition home or self-care (01) ==
LOC: JONCCHEMO 07:58
PROVIDERS: ATTEND Internal Medicine Hematology & Oncology
DX: Z51.11 Encounter for antineoplastic chemotherapy (principal); C18.9 Malignant neoplasm of colon, unspecified; C78.7 Secondary malignant neoplasm of liver and intrahepatic bile duct
CPT/HCPCS: 36415; 80053; 82378; 83735; 85025; 96361; 96366; 96367; 96375; 96413; 96415; 96417; G0498; J2469; J9263; Q5107

== ENCOUNTER 2021-11-17 07:25 | Day surgery (SDC) | payer OTHER ==
[2021-11-17 17:09] VITALS: BP 105/69; PULSE 133; TEMP 100.8
[2021-11-17 18:36] LABS: BASO % 0.8 % (0-2.0); EOS % 1.2 % (0-4.5); HEMATOCRIT 28.4 % (32.4-45.2); HEMOGLOBIN 8.9 GM/dL (10.7-15.3); LYMPH % 11.7 % (8-40); MCH 23.6 pg (25.7-33.7); MCHC 31.4 g/dl (32.0-36.0); MEAN CELL VOLUME 75.1 fl (80-96); MEAN PLT VOLUME 7.6 fl (7.5-11.1); MONO % 7.2 % (3.8-10.2); NEUT % 79.1 % (42.8-82.8); PLATELET COUNT 301 10^3/uL (134-434); RBC 3.78 M/mm3 (3.60-5.2); WHITE BLOOD COUNT 3.5 K/mm3 (4.0-10.0)
[2021-11-17 19:01] LABS: CALCIUM 8.7 mg/dL (8.5-10.1)
[2021-11-17 19:02] LABS: ALBUMIN 3.3 g/dl (3.4-5.0); BLOOD UREA NITROGEN 13.9 mg/dL (7-18)
[2021-11-17 19:05] LABS: CREATININE 0.7 mg/dL (0.55-1.3)
[2021-11-17 19:06] LABS: BILIRUBIN,TOTAL 0.9 mg/dL (0.2-1); TOT PROT 7.2 g/dl (6.4-8.2)
[2021-11-17 19:18] LABS: ANISOCYTOSIS 3+; MACROCYTOSIS 0; TARGET CELLS 1+; TEAR DROP CELLS 1+
== END 2021-11-17 17:05 | disposition home or self-care (01) ==
LOC: JONCNONCHE 07:25
PROVIDERS: ATTEND Internal Medicine Hematology & Oncology
PROC: 3E033GC Introduction of Other Therapeutic Substance into Peripheral Vein, Percutaneous Approach (ICD-10-PCS; principal; 2021-11-17)
DX: Z53.8 Procedure and treatment not carried out for other reasons (principal)
CPT/HCPCS: 36415; 80053; 85025; 87040; 87086

== ENCOUNTER 2021-11-17 16:46 | Observation (INO) | payer OTHER ==
[2021-11-17 17:24] VITALS: BMI 25.0
[2021-11-17] MEDS ORDERED: VANCOMYCIN 1 GM in D5W (PRE-DOCKED) 1,000 MG/250 ML IVPB ONE (18:19)
[2021-11-17] MEDS ORDERED: SODIUM CHLORIDE 0.9% 500 ML INFUS.BAG IV ONE (18:19)
[2021-11-17] MEDS ORDERED: CEFEPIME HCL/D5W 2 GM/50 ML BAG IVPB ONE (18:19)
[2021-11-17] MEDS ORDERED: ACETAMINOPHEN 1000 MG/100 ML BAG IVPB ONE (18:36)
[2021-11-17] MEDS ORDERED: ACETAMINOPHEN INJECTION 100 ML IVPB ONE (18:39)
[2021-11-17] MEDS ORDERED: CEFEPIME 2 GM/100 ML BAG IVPB ONE (18:40)
[2021-11-17 19:15] LABS: INR 1.08 (0.83-1.09); PROTHROMBIN TIME (PATIENT) 12.4 SEC (9.7-13.0)
[2021-11-17 19:18] LABS: ACTIVATED PTT 26.1 SECONDS (25.2-36.5)
[2021-11-17 19:29] LABS: CHLORIDE 99 mmol/L (98-107); SODIUM 131 mmol/L (136-145)
[2021-11-17 19:31] LABS: ALBUMIN 3.3 g/dl (3.4-5.0); BLOOD UREA NITROGEN 14.6 mg/dL (7-18); CALCIUM 9.1 mg/dL (8.5-10.1); CO2 26 mmol/L (21-32); GLUCOSE,RANDOM 124 mg/dL (74-106)
[2021-11-17 19:34] LABS: CREATININE 0.7 mg/dL (0.55-1.3); SGPT/ALT 44 U/L (13-61)
[2021-11-17 19:35] LABS: SGOT/AST 98 U/L (15-37)
[2021-11-17 19:36] LABS: BILIRUBIN,TOTAL 0.8 mg/dL (0.2-1); TOT PROT 7.7 g/dl (6.4-8.2)
[2021-11-17 19:37] LABS: ALK PHOS 112 U/L (45-117)
[2021-11-17 19:50] LABS: ANION GAP 6 MMOL/L (8-16)
[2021-11-17] MEDS ORDERED: VANCOMYCIN 1 GRAM (PRE-DOCKED) 1,000 MG/250 ML BAG IVPB ONE (20:46)
[2021-11-17 20:53] LABS: CALCIUM 8.7 mg/dL (8.5-10.1); EPI CELLS 5 /uL (0-25.1); HYALINE CASTS 0 /uL (0-3.1); PH,URINE 7.5 (5.0-8.0); URINE APPEARANCE CLEAR; URINE BACTERIA 113 /uL (0-1359); URINE BILIRUBIN NEGATIVE (NEGATIVE); URINE COLOR YELLOW; URINE GLUCOSE (UA) NEGATIVE (NEGATIVE); URINE KETONE NEGATIVE (NEGATIVE); URINE LEUK ESTERASE TRACE (NEGATIVE); URINE NITRITE NEGATIVE (NEGATIVE); URINE PROTEIN NEGATIVE (NEGATIVE); URINE RBC 2 /uL (0-23.9); URINE WBC 9 /uL (0-25.8)
[2021-11-17 20:54] LABS: BLOOD UREA NITROGEN 13.9 mg/dL (7-18)
[2021-11-17 20:57] LABS: CREATININE 0.6 mg/dL (0.55-1.3)
[2021-11-17] MEDS ORDERED: ACETAMINOPHEN 325 MG TABLET (FP) PO PRN (21:02)
[2021-11-17] MEDS: SODIUM CHLORIDE 1,000 ML IV SCH (23:28)
[2021-11-18] MEDS ORDERED: VANCOMYCIN 1 GRAM (PRE-DOCKED) 1,000 MG/250 ML BAG IVPB ONE (01:32)
[2021-11-18] MEDS ORDERED: CEFEPIME HCL 2 GM VIAL (RESTRICTED TO ID) ONE ×3 (03:08→17:11)
[2021-11-18] MEDS ORDERED: DEXTROSE 5%-WATER 100 ML IVPB ONE ×3 (03:09→17:12)
[2021-11-18] MEDS ORDERED: CEFEPIME 2 GM in DEXTROSE 5%-WATER 2 GM/100 ML BAG IVPB ONE (04:00)
[2021-11-18 07:42] LABS: BASO % 1.5 % (0-2.0); HEMATOCRIT 26.7 % (32.4-45.2); HEMOGLOBIN 8.3 GM/dL (10.7-15.3); LYMPH % 31.8 % (8-40); MCH 23.4 pg (25.7-33.7); MEAN CELL VOLUME 75.4 fl (80-96); MEAN PLT VOLUME 7.4 fl (7.5-11.1); MONO % 10.6 % (3.8-10.2); NEUT % 51.1 % (42.8-82.8); PLATELET COUNT 285 10^3/uL (134-434); RBC 3.54 M/mm3 (3.60-5.2); RDW 23.6 % (11.6-15.6)
[2021-11-18 08:01] LABS: CALCIUM 8.7 mg/dL (8.5-10.1)
[2021-11-18 08:02] LABS: ALBUMIN 2.8 g/dl (3.4-5.0); BLOOD UREA NITROGEN 13.1 mg/dL (7-18); MAGNESIUM 2.4 mg/dL (1.8-2.4)
[2021-11-18 08:05] LABS: CREATININE 0.6 mg/dL (0.55-1.3); PHOSPHOROUS 4.2 mg/dL (2.5-4.9)
[2021-11-18 08:06] LABS: BILIRUBIN,TOTAL 0.8 mg/dL (0.2-1); TOT PROT 6.4 g/dl (6.4-8.2)
[2021-11-18] MEDS ORDERED: CEFEPIME HCL/D5W 2 GM/50 ML BAG IVPB SCH (10:00)
[2021-11-18] MEDS ORDERED: VANCOMYCIN/WATER FOR INJ (PEG) 1,000 MG/200 ML BAG IVPB ONE (10:00)
[2021-11-18] MEDS ORDERED: VANCOMYCIN 1 GM in D5W (PRE-DOCKED) 1,000 MG/250 ML IVPB SCH (10:00)
[2021-11-18] MEDS: ENOXAPARIN NA (PORCINE) 40 MG/0.4 ML DISP.SYRIN SQ SCH (10:05)
[2021-11-18] MEDS: PANTOPRAZOLE 40 MG TABLET PO SCH (10:05)
[2021-11-18] MEDS: CEFEPIME 2 GM in DEXTROSE 5%-WATER 2 GM/100 ML BAG IVPB SCH ×2 (11:12→17:40)
[2021-11-18] MEDS ORDERED: CEFEPIME 2 GM in DEXTROSE 5%-WATER 100 ML IVPB SCH (12:00)
[2021-11-18 12:11] LABS: ANISOCYTOSIS 2+; MACROCYTOSIS 0; OVALOCYTE 2+; TARGET CELLS 1+; TEAR DROP CELLS 1+
[2021-11-18] MEDS: VANCOMYCIN/WATER FOR INJ (PEG) 1,000 MG/200 ML BAG IVPB SCH ×2 (12:42→22:24)
[2021-11-18 14:38] LABS: URIC ACID 4.6 mg/dL (2.6-7.2)
[2021-11-18] MEDS: SODIUM CHLORIDE 1,000 ML IV SCH (16:17)
[2021-11-18] MEDS ORDERED: TBO-FILGRASTIM 480 MCG/0.8 ML DISP.SYRIN SQ SCH (19:15)
[2021-11-18] MEDS: TBO-FILGRASTIM 300 MCG/0.5 ML DISP.SYRINGE SQ SCH (20:52)
[2021-11-18] MEDS ORDERED: MIRTAZAPINE 15 MG TABLET (FP) PO SCH (22:00)
[2021-11-19] MEDS ORDERED: CEFEPIME HCL 2 GM VIAL (RESTRICTED TO ID) ONE ×2 (01:02→09:30)
[2021-11-19] MEDS ORDERED: DEXTROSE 5%-WATER 100 ML IVPB ONE ×2 (01:03→09:30)
[2021-11-19] MEDS: CEFEPIME 2 GM in DEXTROSE 5%-WATER 2 GM/100 ML BAG IVPB SCH ×2 (01:05→09:35)
[2021-11-19 08:36] LABS: BASO % 1.4 % (0-2.0); EOS % 1.5 % (0-4.5); HEMATOCRIT 31.4 % (32.4-45.2); HEMOGLOBIN 9.6 GM/dL (10.7-15.3); LYMPH % 25.9 % (8-40); MCH 23.1 pg (25.7-33.7); MCHC 30.6 g/dl (32.0-36.0); MEAN CELL VOLUME 75.5 fl (80-96); MEAN PLT VOLUME 7.8 fl (7.5-11.1); MONO % 3.7 % (3.8-10.2); NEUT % 67.5 % (42.8-82.8); PLATELET COUNT 385 10^3/uL (134-434); RBC 4.16 M/mm3 (3.60-5.2); RDW 23.9 % (11.6-15.6); WHITE BLOOD COUNT 5.6 K/mm3 (4.0-10.0)
[2021-11-19 09:11] LABS: ALBUMIN 3.4 g/dl (3.4-5.0); BLOOD UREA NITROGEN 12.2 mg/dL (7-18)
[2021-11-19 09:12] LABS: CALCIUM 9.3 mg/dL (8.5-10.1); CREATININE 0.7 mg/dL (0.55-1.3)
[2021-11-19 09:14] LABS: TOT PROT 7.5 g/dl (6.4-8.2)
[2021-11-19] MEDS: PANTOPRAZOLE 40 MG TABLET PO SCH (09:35)
[2021-11-19] MEDS: ENOXAPARIN NA (PORCINE) 40 MG/0.4 ML DISP.SYRIN SQ SCH (09:35)
[2021-11-19] MEDS: VANCOMYCIN/WATER FOR INJ (PEG) 1,000 MG/200 ML BAG IVPB SCH (10:37)
[2021-11-19 11:25] LABS: ANISOCYTOSIS 1+; MACROCYTOSIS 0
[2021-11-19 13:50] VITALS: BP 120/80; PULSE 91; TEMP 98.3
[2021-11-19] MEDS: TBO-FILGRASTIM 300 MCG/0.5 ML DISP.SYRINGE SQ SCH (14:13)
== END 2021-11-19 18:30 | disposition home or self-care (01) ==
LOC: JER 16:46 → JERBED 20:01 → INTOOBSV 20:01 → J7W 11-18 02:47
PROVIDERS: ADMIT Internal Medicine; ATTEND Internal Medicine
DX: C18.9 Malignant neoplasm of colon, unspecified (principal); C78.7 Secondary malignant neoplasm of liver and intrahepatic bile duct; R50.9 Fever, unspecified; Z87.891 Personal history of nicotine dependence; I10 Essential (primary) hypertension; E78.5 Hyperlipidemia, unspecified
CPT/HCPCS: 36415; 71045-TC-FY; 80048; 80053; 81003; 83735; 84100; 84550; 85025; 85610; 85730; 87040; 87086; 93005; 93010; 99285-25; C9803-CS; G0378; J1447; U0003; U0005

== ENCOUNTER 2021-11-29 08:24 | Day surgery (SDC) | payer OTHER ==
[~2021-11-29 08:24] MED LIST changes: +DEXAMETHASONE SODIUM PHOSPHATE 20 MG in SODIUM CHLORIDE 50 ML IVPB ONE; -ONDANSETRON 4 MG/2 ML VIAL IVPB ONE; -PANTOPRAZOLE SODIUM 40 MG VIAL IVPB ONE; -SODIUM CHLORIDE 500 ML IV STA
[2021-11-29] MEDS ORDERED: SODIUM CHLORIDE 500 ML IV ONE (09:00)
[2021-11-29 09:03] LABS: BASO % 1.3 % (0-2.0); EOS % 1.5 % (0-4.5); HEMATOCRIT 30.1 % (32.4-45.2); HEMOGLOBIN 9.3 GM/dL (10.7-15.3); LYMPH % 39.2 % (8-40); MCH 23.2 pg (25.7-33.7); MEAN CELL VOLUME 74.8 fl (80-96); MEAN PLT VOLUME 7.8 fl (7.5-11.1); PLATELET COUNT 282 10^3/uL (134-434); RBC 4.02 M/mm3 (3.60-5.2); RDW 24.6 % (11.6-15.6); WHITE BLOOD COUNT 4.7 K/mm3 (4.0-10.0)
[2021-11-29 09:05] LABS: EPI CELLS 26 /uL (0-25.1); HYALINE CASTS 2 /uL (0-3.1); URINE APPEARANCE CLEAR; URINE BACTERIA 21 /uL (0-1359); URINE BILIRUBIN NEGATIVE (NEGATIVE); URINE COLOR YELLOW; URINE GLUCOSE (UA) NEGATIVE (NEGATIVE); URINE KETONE NEGATIVE (NEGATIVE); URINE LEUK ESTERASE 1+ (NEGATIVE); URINE NITRITE NEGATIVE (NEGATIVE); URINE PROTEIN 1+ (NEGATIVE); URINE RBC 8 /uL (0-23.9); URINE UROBILINOGEN 0.2 mg/dL (0.2-1.0); URINE WBC 47 /uL (0-25.8)
[2021-11-29 09:29] LABS: CALCIUM 9.3 mg/dL (8.5-10.1)
[2021-11-29 09:30] LABS: ALBUMIN 3.5 g/dl (3.4-5.0); BLOOD UREA NITROGEN 14.2 mg/dL (7-18)
[2021-11-29 09:32] LABS: CREATININE 0.6 mg/dL (0.55-1.3)
[2021-11-29 09:34] LABS: TOT PROT 7.7 g/dl (6.4-8.2)
[2021-11-29 09:35] LABS: BILIRUBIN,TOTAL 0.4 mg/dL (0.2-1)
[2021-11-29] MEDS ORDERED: BEVACIZUMAB AWWB IVPB ONE (10:00)
[2021-11-29] MEDS ORDERED: SODIUM CHLORIDE IVPB ONE (10:00)
[2021-11-29] MEDS ORDERED: DEXAMETHASONE SODIUM PHOSPHATE 20 MG in SODIUM CHLORIDE 50 ML IVPB ONE (10:00)
[2021-11-29] MEDS ORDERED: PALONOSETRON HCL 0.25 MG/5 ML VIAL IVPUSH ONE (10:30)
[2021-11-29 11:03] LABS: ANISOCYTOSIS 0; MACROCYTOSIS 0
[2021-11-29] MEDS ORDERED: WATER IVPB ONE (12:00)
[2021-11-29] MEDS ORDERED: LEUCOVORIN IVPB ONE (12:00)
[2021-11-29] MEDS ORDERED: DEXTROSE 5% IVPB ONE (12:00)
[2021-11-29] MEDS ORDERED: FLUOROURACIL 500 MG/10 ML VIAL IVPUSH ONE (14:00)
[2021-11-29] MEDS ORDERED: FLUOROURACIL CP ONE (14:15)
[2021-11-29] MEDS ORDERED: SODIUM CHLORIDE CP ONE (14:15)
[2021-11-29 16:51] VITALS: TEMP 97.7
[2021-11-29 17:04] VITALS: BP 107/78; PULSE 104
[2021-11-29] MEDS ORDERED: PORTA CATH FLUSH 10 ML IVPUSH PRN (17:04)
== END 2021-11-29 16:40 | disposition home or self-care (01) ==
LOC: JONCCHEMO 08:24
PROVIDERS: ATTEND Internal Medicine Hematology & Oncology
DX: Z51.11 Encounter for antineoplastic chemotherapy (principal); C18.9 Malignant neoplasm of colon, unspecified; C78.7 Secondary malignant neoplasm of liver and intrahepatic bile duct
CPT/HCPCS: 36415; 80053; 81003; 82378; 83036; 84156; 85025; 96361; 96367; 96375; 96411; 96413; 96415; 96417; G0498; J2469; J9190; J9263; Q5107

== ENCOUNTER 2021-12-01 08:20 | Day surgery (SDC) | payer OTHER ==
[2021-12-01 18:54] VITALS: BP 125/82; PULSE 20; TEMP 99
== END 2021-12-01 14:30 | disposition home or self-care (01) ==
LOC: JONCNONCHE 08:20
PROVIDERS: ATTEND Internal Medicine Hematology & Oncology
DX: Z51.11 Encounter for antineoplastic chemotherapy (principal); C18.9 Malignant neoplasm of colon, unspecified; C78.7 Secondary malignant neoplasm of liver and intrahepatic bile duct

== ENCOUNTER 2021-12-13 06:59 | Day surgery (SDC) | payer OTHER ==
[2021-12-13] MEDS ORDERED: SODIUM CHLORIDE 500 ML IV ONE (09:00)
[2021-12-13 09:18] LABS: HEMATOCRIT 28.8 % (32.4-45.2); HEMOGLOBIN 8.9 GM/dL (10.7-15.3); MCH 23.2 pg (25.7-33.7); MEAN CELL VOLUME 74.9 fl (80-96); MEAN PLT VOLUME 7.6 fl (7.5-11.1); PLATELET COUNT 373 10^3/uL (134-434); RBC 3.85 M/mm3 (3.60-5.2); RDW 25.1 % (11.6-15.6)
[2021-12-13 09:43] LABS: CALCIUM 8.9 mg/dL (8.5-10.1)
[2021-12-13 09:44] LABS: ALBUMIN 3.2 g/dl (3.4-5.0)
[2021-12-13 09:45] LABS: BLOOD UREA NITROGEN 20.4 mg/dL (7-18)
[2021-12-13 09:47] LABS: CREATININE 0.9 mg/dL (0.55-1.3)
[2021-12-13 09:49] LABS: BILIRUBIN,TOTAL 0.3 mg/dL (0.2-1); TOT PROT 7.6 g/dl (6.4-8.2)
[2021-12-13 10:17] LABS: ANISOCYTOSIS 3+; MACROCYTOSIS 0; PLATELET ESTIMATE INCREASED
[2021-12-13] MEDS ORDERED: PALONOSETRON HCL 0.25 MG/5 ML VIAL IVPUSH ONE (10:30)
[2021-12-13] MEDS ORDERED: DEXAMETHASONE SODIUM PHOSPHATE 20 MG in SODIUM CHLORIDE 50 ML IVPB ONE (10:30)
[2021-12-13] MEDS ORDERED: BEVACIZUMAB AWWB IVPB ONE (11:00)
[2021-12-13] MEDS ORDERED: SODIUM CHLORIDE IVPB ONE (11:00)
[2021-12-13] MEDS ORDERED: WATER IVPB ONE (12:00)
[2021-12-13] MEDS ORDERED: LEUCOVORIN IVPB ONE (12:00)
[2021-12-13] MEDS ORDERED: DEXTROSE 5% IVPB ONE (12:00)
[2021-12-13] MEDS ORDERED: OXALIPLATIN IV ONE (12:00)
[2021-12-13] MEDS ORDERED: DEXTROSE 5% IV ONE (12:00)
[2021-12-13] MEDS ORDERED: WATER IV ONE (12:00)
[2021-12-13] MEDS ORDERED: FLUOROURACIL 500 MG/10 ML VIAL IVPUSH ONE (14:00)
[2021-12-13] MEDS ORDERED: FLUOROURACIL CP ONE (14:15)
[2021-12-13] MEDS ORDERED: SODIUM CHLORIDE CP ONE (14:15)
[2021-12-13 17:48] VITALS: TEMP 98
[2021-12-13] MEDS ORDERED: PORTA CATH FLUSH 10 ML IVPUSH PRN (17:55)
[2021-12-13 17:56] VITALS: BP 131/76; PULSE 95
== END 2021-12-13 13:10 | disposition home or self-care (01) ==
LOC: JONCCHEMO 06:59
PROVIDERS: ATTEND Internal Medicine Hematology & Oncology
DX: Z51.11 Encounter for antineoplastic chemotherapy (principal); C18.9 Malignant neoplasm of colon, unspecified; C78.7 Secondary malignant neoplasm of liver and intrahepatic bile duct
CPT/HCPCS: 36415; 80053; 85025; 96361; 96413; Q5107

== ENCOUNTER 2021-12-27 08:19 | Day surgery (SDC) | payer OTHER ==
[2021-12-27 08:53] LABS: BASO % 0.9 % (0-2.0); HEMATOCRIT 30.6 % (32.4-45.2); HEMOGLOBIN 9.5 GM/dL (10.7-15.3); LYMPH % 25.2 % (8-40); MCH 22.6 pg (25.7-33.7); MEAN CELL VOLUME 72.9 fl (80-96); MEAN PLT VOLUME 8.3 fl (7.5-11.1); MONO % 7.4 % (3.8-10.2); NEUT % 65.5 % (42.8-82.8); PLATELET COUNT 268 10^3/uL (134-434); RDW 27.3 % (11.6-15.6); WHITE BLOOD COUNT 7.4 K/mm3 (4.0-10.0)
[2021-12-27] MEDS ORDERED: SODIUM CHLORIDE 500 ML IV ONE (09:00)
[2021-12-27 09:10] LABS: CALCIUM 9.8 mg/dL (8.5-10.1)
[2021-12-27 09:11] LABS: ALBUMIN 3.5 g/dl (3.4-5.0); BLOOD UREA NITROGEN 20.4 mg/dL (7-18)
[2021-12-27 09:14] LABS: CREATININE 0.7 mg/dL (0.55-1.3)
[2021-12-27 09:16] LABS: BILIRUBIN,TOTAL 0.3 mg/dL (0.2-1); TOT PROT 8.1 g/dl (6.4-8.2)
[2021-12-27] MEDS ORDERED: PALONOSETRON HCL 0.25 MG/5 ML VIAL IVPUSH ONE (10:00)
[2021-12-27] MEDS ORDERED: DEXAMETHASONE SODIUM PHOSPHATE 20 MG in SODIUM CHLORIDE 50 ML IVPB ONE (10:00)
[2021-12-27] MEDS ORDERED: SODIUM CHLORIDE IVPB ONE (10:30)
[2021-12-27] MEDS ORDERED: BEVACIZUMAB AWWB IVPB ONE (10:30)
[2021-12-27] MEDS ORDERED: LEUCOVORIN IVPB ONE (11:00)
[2021-12-27] MEDS ORDERED: WATER IVPB ONE (11:00)
[2021-12-27] MEDS ORDERED: DEXTROSE 5% IVPB ONE (11:00)
[2021-12-27 11:16] LABS: ANISOCYTOSIS 1+; MACROCYTOSIS 0; PLATELET ESTIMATE NORMAL
[2021-12-27] MEDS ORDERED: SODIUM CHLORIDE CP ONE (13:00)
[2021-12-27] MEDS ORDERED: FLUOROURACIL CP ONE (13:00)
[2021-12-27 16:04] VITALS: TEMP 98.4
[2021-12-27] MEDS ORDERED: PORTA CATH FLUSH 10 ML IVPUSH PRN (16:04)
[2021-12-27] MEDS ORDERED: DEXAMETHASONE SOD PHOSPHATE 20 MG/5 ML VIAL IVPB ONE (17:46)
[2021-12-27] MEDS ORDERED: FAMOTIDINE 20 MG/50 ML IVPB 20 MG/50 ML MG IVPB ONE (17:47)
[2021-12-27 18:38] VITALS: BP 135/86; PULSE 90
== END 2021-12-27 18:15 | disposition home or self-care (01) ==
LOC: JONCCHEMO 08:19
PROVIDERS: ATTEND Internal Medicine Hematology & Oncology
DX: Z51.11 Encounter for antineoplastic chemotherapy (principal); C18.9 Malignant neoplasm of colon, unspecified; C78.7 Secondary malignant neoplasm of liver and intrahepatic bile duct
CPT/HCPCS: 36415; 80053; 85025; 96361; 96366; 96367; 96375; 96413; 96417; J2469; J9263; Q5107

== ENCOUNTER 2021-12-28 08:14 | Day surgery (SDC) | payer OTHER ==
[2021-12-28] MEDS ORDERED: DEXAMETHASONE INJECTION 8 MG in SODIUM CHLORIDE 50 ML IVPB ONE (09:30)
[2021-12-28] MEDS ORDERED: LEUCOVORIN IVPB ONE (10:30)
[2021-12-28] MEDS ORDERED: DEXTROSE 5% IVPB ONE (10:30)
[2021-12-28] MEDS ORDERED: WATER IVPB ONE (10:30)
[2021-12-28] MEDS ORDERED: FLUOROURACIL CP ONE (11:00)
[2021-12-28] MEDS ORDERED: SODIUM CHLORIDE CP ONE (11:00)
[2021-12-28 14:54] VITALS: TEMP 98.2
[2021-12-28] MEDS ORDERED: PORTA CATH FLUSH 10 ML IVPUSH PRN ×2 (14:54→15:19)
[2021-12-28 15:19] VITALS: BP 130/82; PULSE 96
== END 2021-12-28 13:10 | disposition home or self-care (01) ==
LOC: JONCCHEMO 08:14
PROVIDERS: ATTEND Internal Medicine Hematology & Oncology
DX: Z51.11 Encounter for antineoplastic chemotherapy (principal); C18.9 Malignant neoplasm of colon, unspecified; C78.7 Secondary malignant neoplasm of liver and intrahepatic bile duct
CPT/HCPCS: 96367; 96413; 96415; G0498; J1100

== ENCOUNTER 2022-01-10 07:28 | Day surgery (SDC) | payer OTHER ==
[2022-01-10] MEDS ORDERED: SODIUM CHLORIDE 500 ML IV ONE (09:00)
[2022-01-10] MEDS ORDERED: DEXAMETHASONE SODIUM PHOSPHATE 20 MG in SODIUM CHLORIDE 50 ML IVPB ONE (09:30)
[2022-01-10 09:38] LABS: BASO % 0.5 % (0-2.0); EOS % 2.4 % (0-4.5); HEMATOCRIT 29.8 % (32.4-45.2); HEMOGLOBIN 9.3 GM/dL (10.7-15.3); LYMPH % 29.6 % (8-40); MCH 23.2 pg (25.7-33.7); MCHC 31.3 g/dl (32.0-36.0); MEAN CELL VOLUME 74.2 fl (80-96); MEAN PLT VOLUME 7.6 fl (7.5-11.1); MONO % 8.8 % (3.8-10.2); NEUT % 58.7 % (42.8-82.8); PLATELET COUNT 402 10^3/uL (134-434); RBC 4.01 M/mm3 (3.60-5.2); WHITE BLOOD COUNT 5.4 K/mm3 (4.0-10.0)
[2022-01-10] MEDS ORDERED: DEXAMETHASONE SODIUM PHOSPHATE 10 MG in SODIUM CHLORIDE 50 ML IVPB ONE (10:00)
[2022-01-10 10:17] LABS: CALCIUM 9.1 mg/dL (8.5-10.1)
[2022-01-10 10:18] LABS: ALBUMIN 3.4 g/dl (3.4-5.0); BLOOD UREA NITROGEN 15.4 mg/dL (7-18)
[2022-01-10 10:21] LABS: CREATININE 0.7 mg/dL (0.55-1.3)
[2022-01-10 10:22] LABS: BILIRUBIN,TOTAL 0.4 mg/dL (0.2-1); TOT PROT 7.5 g/dl (6.4-8.2)
[2022-01-10] MEDS ORDERED: PALONOSETRON HCL 0.25 MG/5 ML VIAL IVPUSH ONE (10:30)
[2022-01-10 10:37] LABS: ANISOCYTOSIS 1+; MACROCYTOSIS 0; PLATELET ESTIMATE NORMAL; TARGET CELLS 1+
[2022-01-10] MEDS ORDERED: SODIUM CHLORIDE IVPB ONE (11:00)
[2022-01-10] MEDS ORDERED: BEVACIZUMAB AWWB IVPB ONE (11:00)
[2022-01-10] MEDS ORDERED: DEXAMETHASONE SOD PHOSPHATE 10 MG/1 ML VIAL ONE (11:28)
[2022-01-10] MEDS ORDERED: DEXTROSE 5% IVPB ONE (11:30)
[2022-01-10] MEDS ORDERED: LEUCOVORIN IVPB ONE (11:30)
[2022-01-10] MEDS ORDERED: WATER IVPB ONE (11:30)
[2022-01-10] MEDS ORDERED: FLUOROURACIL 2,500 MG/50 ML VIAL IVPUSH ONE (12:45)
[2022-01-10 12:52] VITALS: TEMP 97.9
[2022-01-10] MEDS ORDERED: FLUOROURACIL CP ONE ×2 (13:00→13:30)
[2022-01-10] MEDS ORDERED: SODIUM CHLORIDE CP ONE ×2 (13:00→13:30)
[2022-01-10 17:26] VITALS: BP 169/91; PULSE 100
== END 2022-01-10 17:05 | disposition home or self-care (01) ==
LOC: JONCCHEMO 07:28
PROVIDERS: ATTEND Internal Medicine Hematology & Oncology
DX: Z51.11 Encounter for antineoplastic chemotherapy (principal); C18.9 Malignant neoplasm of colon, unspecified; C78.7 Secondary malignant neoplasm of liver and intrahepatic bile duct
CPT/HCPCS: 36415; 80053; 85025; 96361; 96366; 96367; 96375; 96411; 96413; G0498; J1100; J2469; Q5107

== ENCOUNTER 2022-01-12 07:00 | Day surgery (SDC) | payer OTHER ==
[2022-01-12 17:18] VITALS: BP 119/68; PULSE 62; TEMP 98.1
[2022-01-12] MEDS ORDERED: PORTA CATH FLUSH 10 ML IVPUSH PRN (17:18)
== END 2022-01-12 14:30 | disposition home or self-care (01) ==
LOC: JONCNONCHE 07:00
PROVIDERS: ATTEND Internal Medicine Hematology & Oncology
DX: Z53.8 Procedure and treatment not carried out for other reasons (principal)

== ENCOUNTER 2022-01-24 06:53 | Day surgery (SDC) | payer OTHER ==
[2022-01-24 08:50] LABS: EOS % 1.2 % (0-4.5); HEMATOCRIT 31.7 % (32.4-45.2); HEMOGLOBIN 9.8 GM/dL (10.7-15.3); MCH 22.9 pg (25.7-33.7); MCHC 30.9 g/dl (32.0-36.0); MEAN CELL VOLUME 74.1 fl (80-96); MEAN PLT VOLUME 8.3 fl (7.5-11.1); MONO % 10.2 % (3.8-10.2); NEUT % 51.6 % (42.8-82.8); PLATELET COUNT 286 10^3/uL (134-434); RBC 4.27 M/mm3 (3.60-5.2); RDW 26.8 % (11.6-15.6); WHITE BLOOD COUNT 4.4 K/mm3 (4.0-10.0)
[2022-01-24] MEDS ORDERED: SODIUM CHLORIDE 500 ML IV ONE (09:00)
[2022-01-24 09:01] LABS: BLOOD UREA NITROGEN 12.5 mg/dL (7-18); CALCIUM 9.1 mg/dL (8.5-10.1)
[2022-01-24 09:02] LABS: ALBUMIN 3.4 g/dl (3.4-5.0)
[2022-01-24 09:04] LABS: CREATININE 0.8 mg/dL (0.55-1.3)
[2022-01-24 09:06] LABS: BILIRUBIN,TOTAL 0.5 mg/dL (0.2-1); TOT PROT 7.5 g/dl (6.4-8.2)
[2022-01-24 09:35] LABS: ANISOCYTOSIS 2+; MACROCYTOSIS 0
[2022-01-24] MEDS ORDERED: PALONOSETRON HCL 0.25 MG/5 ML VIAL IVPUSH ONE (10:30)
[2022-01-24] MEDS ORDERED: DEXAMETHASONE SODIUM PHOSPHATE 20 MG in SODIUM CHLORIDE 50 ML IVPB ONE (10:30)
[2022-01-24] MEDS ORDERED: SODIUM CHLORIDE IVPB ONE (11:00)
[2022-01-24] MEDS ORDERED: BEVACIZUMAB AWWB IVPB ONE (11:00)
[2022-01-24] MEDS ORDERED: DEXTROSE 5% IVPB ONE (11:30)
[2022-01-24] MEDS ORDERED: WATER IVPB ONE (11:30)
[2022-01-24] MEDS ORDERED: LEUCOVORIN IVPB ONE (11:30)
[2022-01-24] MEDS ORDERED: FLUOROURACIL 2,500 MG/50 ML VIAL IVPUSH ONE (13:00)
[2022-01-24] MEDS ORDERED: FLUOROURACIL CP ONE (13:15)
[2022-01-24] MEDS ORDERED: SODIUM CHLORIDE CP ONE (13:15)
[2022-01-24] MEDS ORDERED: amLODIPine BESYLATE 5 MG TABLET (FP) PO ONE (16:18)
[2022-01-24 17:51] VITALS: TEMP 98.8
[2022-01-24 17:58] VITALS: BP 168/104; PULSE 93
== END 2022-01-24 16:45 | disposition home or self-care (01) ==
LOC: JONCCHEMO 06:53
PROVIDERS: ATTEND Internal Medicine Hematology & Oncology
PROC: 3E04305 Introduction of Other Antineoplastic into Central Vein, Percutaneous Approach (ICD-10-PCS; principal; 2022-01-24)
PROC: 3E04305 Introduction of Other Antineoplastic into Central Vein, Percutaneous Approach (ICD-10-PCS; 2022-01-24)
PROC: 3E043GC Introduction of Other Therapeutic Substance into Central Vein, Percutaneous Approach (ICD-10-PCS; 2022-01-24)
PROC: 3E0437Z Introduction of Electrolytic and Water Balance Substance into Central Vein, Percutaneous Approach (ICD-10-PCS; 2022-01-24)
DX: Z51.11 Encounter for antineoplastic chemotherapy (principal); C18.9 Malignant neoplasm of colon, unspecified; C78.7 Secondary malignant neoplasm of liver and intrahepatic bile duct
CPT/HCPCS: 36415; 80053; 82378; 83735; 85025; 96361; 96366; 96367; 96375; 96413; G0498; J2469; Q5107

== ENCOUNTER 2022-01-26 07:42 | Day surgery (SDC) | payer OTHER ==
[2022-01-26 10:46] VITALS: BP 128/78; PULSE 113; TEMP 98.5
[2022-01-26] MEDS ORDERED: PORTA CATH FLUSH 10 ML IVPUSH PRN (12:00)
== END 2022-01-26 12:05 | disposition home or self-care (01) ==
LOC: JONCNONCHE 07:42 → JONCCHEMO 07:42
PROVIDERS: ATTEND Internal Medicine Hematology & Oncology
DX: Z53.8 Procedure and treatment not carried out for other reasons (principal)

== ENCOUNTER 2022-02-07 06:36 | Day surgery (SDC) | payer OTHER ==
[2022-02-07] MEDS ORDERED: SODIUM CHLORIDE 500 ML IV ONE (09:00)
[2022-02-07 09:15] LABS: BASO % 0.8 % (0-2.0); EOS % 0.3 % (0-4.5); HEMATOCRIT 32.5 % (32.4-45.2); HEMOGLOBIN 10.1 GM/dL (10.7-15.3); LYMPH % 28.2 % (8-40); MCH 22.7 pg (25.7-33.7); MEAN CELL VOLUME 73.3 fl (80-96); MEAN PLT VOLUME 7.9 fl (7.5-11.1); MONO % 13.7 % (3.8-10.2); PLATELET COUNT 303 10^3/uL (134-434); RBC 4.44 M/mm3 (3.60-5.2); RDW 26.8 % (11.6-15.6); WHITE BLOOD COUNT 5.5 K/mm3 (4.0-10.0)
[2022-02-07] MEDS ORDERED: DEXAMETHASONE SOD PHOSPHATE 10 MG/1 ML VIAL IVPB ONE ×2 (09:23→11:30)
[2022-02-07] MEDS ORDERED: SODIUM CHLORIDE 250 ML IV ONE (09:24)
[2022-02-07 09:45] LABS: ALBUMIN 3.7 g/dl (3.4-5.0); CALCIUM 9.7 mg/dL (8.5-10.1)
[2022-02-07 09:48] LABS: CREATININE 0.8 mg/dL (0.55-1.3)
[2022-02-07 09:50] LABS: BILIRUBIN,TOTAL 0.7 mg/dL (0.2-1)
[2022-02-07] MEDS ORDERED: DEXAMETHASONE SODIUM PHOSPHATE 20 MG in SODIUM CHLORIDE 50 ML IVPB ONE (10:00)
[2022-02-07] MEDS ORDERED: PALONOSETRON HCL 0.25 MG/5 ML VIAL IVPUSH ONE (10:00)
[2022-02-07 10:01] LABS: ANISOCYTOSIS 2+; MACROCYTOSIS 2+; TEAR DROP CELLS 1+
[2022-02-07] MEDS ORDERED: SODIUM CHLORIDE IVPB ONE (10:30)
[2022-02-07] MEDS ORDERED: BEVACIZUMAB AWWB IVPB ONE (10:30)
[2022-02-07] MEDS ORDERED: LEUCOVORIN IVPB ONE (11:00)
[2022-02-07] MEDS ORDERED: WATER IVPB ONE (11:00)
[2022-02-07] MEDS ORDERED: DEXTROSE 5% IVPB ONE (11:00)
[2022-02-07 11:08] LABS: URINE APPEARANCE CLEAR; URINE BILIRUBIN NEGATIVE (NEGATIVE); URINE COLOR YELLOW; URINE GLUCOSE (UA) NEGATIVE (NEGATIVE); URINE KETONE NEGATIVE (NEGATIVE); URINE LEUK ESTERASE NEGATIVE (NEGATIVE); URINE NITRITE NEGATIVE (NEGATIVE); URINE PROTEIN NEGATIVE (NEGATIVE); URINE UROBILINOGEN 0.2 mg/dL (0.2-1.0)
[2022-02-07 11:17] LABS: CREATININE, URINE RANDOM < 13.0 mg/dL (30-150)
[2022-02-07] MEDS ORDERED: DEXAMETHASONE SOD PHOSPHATE 10 MG/1 ML VIAL ONE (11:28)
[2022-02-07] MEDS ORDERED: FLUOROURACIL CP ONE (13:00)
[2022-02-07] MEDS ORDERED: FLUOROURACIL 2,500 MG/50 ML VIAL IVPUSH ONE (13:00)
[2022-02-07] MEDS ORDERED: SODIUM CHLORIDE CP ONE (13:00)
[2022-02-07 17:31] VITALS: BP 131/93; PULSE 96; TEMP 97.5
[2022-02-07] MEDS ORDERED: PORTA CATH FLUSH 10 ML IVPUSH PRN (17:31)
== END 2022-02-07 15:30 | disposition home or self-care (01) ==
LOC: JONCCHEMO 06:36
PROVIDERS: ATTEND Internal Medicine Hematology & Oncology
DX: Z51.11 Encounter for antineoplastic chemotherapy (principal); C18.9 Malignant neoplasm of colon, unspecified; C78.7 Secondary malignant neoplasm of liver and intrahepatic bile duct
CPT/HCPCS: 36415; 80053; 81003; 82570; 84156; 85025; 96361; 96366; 96367; 96375; 96411; 96413; G0498; J1100; J2469; Q5107

== ENCOUNTER 2022-02-09 08:06 | Day surgery (SDC) | payer OTHER ==
[2022-02-09 14:33] VITALS: BP 121/71; PULSE 104; TEMP 97.9
[2022-02-09] MEDS ORDERED: PORTA CATH FLUSH 10 ML IVPUSH PRN ×2 (16:11→16:13)
== END 2022-02-09 13:45 | disposition home or self-care (01) ==
LOC: JONCCHEMO 08:06
PROVIDERS: ATTEND Internal Medicine Hematology & Oncology
DX: Z53.8 Procedure and treatment not carried out for other reasons (principal)

== ENCOUNTER 2022-02-21 08:00 | Day surgery (SDC) | payer OTHER ==
[2022-02-21 08:42] LABS: BASO % 0.8 % (0-2.0); EOS % 1.1 % (0-4.5); HEMATOCRIT 31.3 % (32.4-45.2); HEMOGLOBIN 9.7 GM/dL (10.7-15.3); LYMPH % 31.3 % (8-40); MCHC 31.1 g/dl (32.0-36.0); MEAN PLT VOLUME 8.3 fl (7.5-11.1); MONO % 15.3 % (3.8-10.2); NEUT % 51.5 % (42.8-82.8); PLATELET COUNT 250 10^3/uL (134-434); RBC 4.23 M/mm3 (3.60-5.2); RDW 25.9 % (11.6-15.6)
[2022-02-21 08:49] VITALS: TEMP 97.9
[2022-02-21] MEDS ORDERED: SODIUM CHLORIDE 500 ML IV ONE (08:50)
[2022-02-21 08:59] LABS: ALBUMIN 3.4 g/dl (3.4-5.0); BLOOD UREA NITROGEN 10.5 mg/dL (7-18)
[2022-02-21 09:02] LABS: CREATININE 0.7 mg/dL (0.55-1.3)
[2022-02-21 09:04] LABS: BILIRUBIN,TOTAL 0.5 mg/dL (0.2-1); TOT PROT 7.1 g/dl (6.4-8.2)
[2022-02-21] MEDS ORDERED: PALONOSETRON HCL 0.25 MG/5 ML VIAL IVPUSH ONE (10:00)
[2022-02-21] MEDS ORDERED: DEXAMETHASONE SODIUM PHOSPHATE 12 MG in SODIUM CHLORIDE 50 ML IVPB ONE (10:00)
[2022-02-21] MEDS ORDERED: BEVACIZUMAB AWWB IVPB ONE (10:30)
[2022-02-21] MEDS ORDERED: SODIUM CHLORIDE IVPB ONE (10:30)
[2022-02-21] MEDS ORDERED: DEXTROSE 5% IVPB ONE (11:30)
[2022-02-21] MEDS ORDERED: WATER IVPB ONE (11:30)
[2022-02-21] MEDS ORDERED: LEUCOVORIN IVPB ONE (11:30)
[2022-02-21 13:03] LABS: ANISOCYTOSIS 3+; MACROCYTOSIS 0
[2022-02-21] MEDS ORDERED: FLUOROURACIL 2,500 MG/50 ML VIAL IVPUSH ONE (13:30)
[2022-02-21] MEDS ORDERED: FLUOROURACIL CP ONE (13:30)
[2022-02-21] MEDS ORDERED: SODIUM CHLORIDE CP ONE (13:30)
[2022-02-21 16:38] VITALS: BP 149/87; PULSE 89
== END 2022-02-21 15:30 | disposition home or self-care (01) ==
LOC: JONCCHEMO 08:00
PROVIDERS: ATTEND Internal Medicine Hematology & Oncology
PROC: 3E04305 Introduction of Other Antineoplastic into Central Vein, Percutaneous Approach (ICD-10-PCS; principal; 2022-02-21)
PROC: 3E04305 Introduction of Other Antineoplastic into Central Vein, Percutaneous Approach (ICD-10-PCS; 2022-02-21)
PROC: 3E043GC Introduction of Other Therapeutic Substance into Central Vein, Percutaneous Approach (ICD-10-PCS; 2022-02-21)
PROC: 3E0437Z Introduction of Electrolytic and Water Balance Substance into Central Vein, Percutaneous Approach (ICD-10-PCS; 2022-02-21)
DX: Z51.11 Encounter for antineoplastic chemotherapy (principal); C18.9 Malignant neoplasm of colon, unspecified; C78.7 Secondary malignant neoplasm of liver and intrahepatic bile duct
CPT/HCPCS: 36415; 80053; 84156; 85025; 96361; 96366; 96367; 96375; 96413; G0498; J2469; Q5107

== ENCOUNTER 2022-02-23 07:34 | Day surgery (SDC) | payer OTHER ==
[2022-02-23 13:16] VITALS: BP 130/79; PULSE 102; TEMP 98.2
[2022-02-23] MEDS ORDERED: PORTA CATH FLUSH 10 ML IVPUSH PRN (13:52)
== END 2022-02-23 13:30 | disposition home or self-care (01) ==
LOC: JONCCHEMO 07:34
PROVIDERS: ATTEND Internal Medicine Hematology & Oncology
DX: Z53.8 Procedure and treatment not carried out for other reasons (principal)

== ENCOUNTER 2022-03-07 08:08 | Day surgery (SDC) | payer OTHER ==
[2022-03-07] MEDS ORDERED: SODIUM CHLORIDE 500 ML IV ONE (09:00)
[2022-03-07 09:11] LABS: BASO % 0.8 % (0-2.0); EOS % 0.6 % (0-4.5); HEMOGLOBIN 10.3 GM/dL (10.7-15.3); LYMPH % 29.2 % (8-40); MCH 23.1 pg (25.7-33.7); MCHC 31.3 g/dl (32.0-36.0); MEAN CELL VOLUME 73.8 fl (80-96); MEAN PLT VOLUME 8.2 fl (7.5-11.1); MONO % 13.6 % (3.8-10.2); NEUT % 55.8 % (42.8-82.8); PLATELET COUNT 286 10^3/uL (134-434); RBC 4.48 M/mm3 (3.60-5.2); RDW 26.8 % (11.6-15.6); WHITE BLOOD COUNT 6.3 K/mm3 (4.0-10.0)
[2022-03-07] MEDS ORDERED: SODIUM CHLORIDE 250 ML IV ONE (09:31)
[2022-03-07 09:51] LABS: ALBUMIN 3.6 g/dl (3.4-5.0); CALCIUM 9.3 mg/dL (8.5-10.1)
[2022-03-07 09:52] LABS: BLOOD UREA NITROGEN 11.6 mg/dL (7-18)
[2022-03-07 09:54] LABS: CREATININE 0.9 mg/dL (0.55-1.3)
[2022-03-07 09:56] LABS: TOT PROT 7.7 g/dl (6.4-8.2)
[2022-03-07 10:01] LABS: BILIRUBIN,TOTAL 0.7 mg/dL (0.2-1)
[2022-03-07 10:02] LABS: ANISOCYTOSIS 2+; MACROCYTOSIS 1+; TEAR DROP CELLS 1+
[2022-03-07 10:29] VITALS: TEMP 97.7
[2022-03-07] MEDS ORDERED: PALONOSETRON HCL 0.25 MG/5 ML VIAL IVPUSH ONE (10:30)
[2022-03-07] MEDS ORDERED: DEXAMETHASONE SODIUM PHOSPHATE 12 MG in SODIUM CHLORIDE 50 ML IVPB ONE (10:30)
[2022-03-07] MEDS ORDERED: PORTA CATH FLUSH 10 ML IVPUSH PRN (10:34)
[2022-03-07] MEDS ORDERED: SODIUM CHLORIDE IVPB ONE (11:00)
[2022-03-07] MEDS ORDERED: BEVACIZUMAB AWWB IVPB ONE (11:00)
[2022-03-07] MEDS ORDERED: DEXTROSE 5% IVPB ONE (11:30)
[2022-03-07] MEDS ORDERED: WATER IVPB ONE (11:30)
[2022-03-07] MEDS ORDERED: LEUCOVORIN IVPB ONE (11:30)
[2022-03-07] MEDS ORDERED: FLUOROURACIL 2,500 MG/50 ML VIAL IVPUSH ONE (13:30)
[2022-03-07] MEDS ORDERED: FLUOROURACIL CP ONE (13:45)
[2022-03-07] MEDS ORDERED: SODIUM CHLORIDE CP ONE (13:45)
[2022-03-07 17:25] VITALS: BP 116/78; PULSE 89
== END 2022-03-07 15:45 | disposition home or self-care (01) ==
LOC: JONCCHEMO 08:08
PROVIDERS: ATTEND Internal Medicine Hematology & Oncology
DX: Z51.11 Encounter for antineoplastic chemotherapy (principal); C18.9 Malignant neoplasm of colon, unspecified; C78.7 Secondary malignant neoplasm of liver and intrahepatic bile duct
CPT/HCPCS: 36415; 80053; 82378; 85025; 96361; 96366; 96367; 96375; 96411; 96413; G0498; J2469; Q5107

== ENCOUNTER 2022-03-09 07:24 | Day surgery (SDC) | payer OTHER ==
[2022-03-09] MEDS ORDERED: SODIUM CHLORIDE 500 ML IV ONE (13:22)
[2022-03-09] MEDS ORDERED: ONDANSETRON 4 MG/2 ML VIAL IVPB ONE (14:00)
[2022-03-09] MEDS ORDERED: ACETAMINOPHEN 325 MG TABLET (FP) PO ONE (15:15)
[2022-03-09 15:45] VITALS: BP 123/82; PULSE 115; TEMP 101.4
[2022-03-09 15:59] LABS: EPI CELLS 22 /uL (0-25.1); HYALINE CASTS 1 /uL (0-3.1); URINE APPEARANCE CLEAR; URINE BACTERIA 262 /uL (0-1359); URINE BILIRUBIN NEGATIVE (NEGATIVE); URINE COLOR ORANGE; URINE GLUCOSE (UA) 1+ (NEGATIVE); URINE KETONE NEGATIVE (NEGATIVE); URINE LEUK ESTERASE 2+ (NEGATIVE); URINE NITRITE NEGATIVE (NEGATIVE); URINE PROTEIN 1+ (NEGATIVE); URINE RBC 4 /uL (0-23.9); URINE WBC 42 /uL (0-25.8)
== END 2022-03-09 16:10 | disposition short-term general hospital (02) ==
LOC: JONCCHEMO 07:24
PROVIDERS: ATTEND Internal Medicine Hematology & Oncology
PROC: 3E043GC Introduction of Other Therapeutic Substance into Central Vein, Percutaneous Approach (ICD-10-PCS; principal; 2022-03-09)
PROC: 3E0437Z Introduction of Electrolytic and Water Balance Substance into Central Vein, Percutaneous Approach (ICD-10-PCS; 2022-03-09)
DX: Z76.89 Persons encountering health services in other specified circumstances (principal); C18.9 Malignant neoplasm of colon, unspecified; C78.7 Secondary malignant neoplasm of liver and intrahepatic bile duct
CPT/HCPCS: 81003; 87040; 87086; 96361; 96374

== ENCOUNTER 2022-03-09 16:06 | Emergency (ER) | payer OTHER ==
[2022-03-09 16:17] VITALS: BMI 29.7
[2022-03-09] MEDS ORDERED: SODIUM CHLORIDE 2,585 ML IV ONE (17:35)
[2022-03-09] MEDS ORDERED: ACETAMINOPHEN 1000 MG/100 ML BAG IVPB ONE (18:36)
[2022-03-09] MEDS ORDERED: METOCLOPRAMIDE HCL INJECTION 10 MG/2 ML VIAL IVPUSH ONE (18:36)
[2022-03-09] MEDS ORDERED: VANCOMYCIN 1 GM in D5W (PRE-DOCKED) 1,000 MG/250 ML IVPB ONE (18:48)
[2022-03-09] MEDS ORDERED: CEFEPIME HCL/D5W 2 GM/50 ML BAG IVPB ONE (18:48)
[2022-03-09] MEDS ORDERED: METOCLOPRAMIDE HCL INJECTION 10 MG/2 ML VIAL ONE (19:01)
[2022-03-09] MEDS ORDERED: VANCOMYCIN 1 GRAM (PRE-DOCKED) 1,000 MG/250 ML BAG IVPB ONE (19:01)
[2022-03-09] MEDS ORDERED: ACETAMINOPHEN INJECTION 100 ML IVPB ONE (19:01)
[2022-03-09] MEDS ORDERED: CEFEPIME 2 GM/100 ML BAG IVPB ONE (19:02)
[2022-03-09 19:12] LABS: BASO % 1.6 % (0-2.0); EOS % 0.2 % (0-4.5); HEMATOCRIT 33.2 % (32.4-45.2); HEMOGLOBIN 10.3 GM/dL (10.7-15.3); LYMPH % 25.5 % (8-40); MCH 22.9 pg (25.7-33.7); MEAN CELL VOLUME 73.8 fl (80-96); MEAN PLT VOLUME 8.2 fl (7.5-11.1); MONO % 5.1 % (3.8-10.2); NEUT % 67.6 % (42.8-82.8); PLATELET COUNT 382 10^3/uL (134-434); RBC 4.49 M/mm3 (3.60-5.2); RDW 26.7 % (11.6-15.6)
[2022-03-09 19:14] LABS: EPI CELLS 9 /uL (0-25.1); HYALINE CASTS 0 /uL (0-3.1); URINE APPEARANCE CLEAR; URINE BACTERIA 46 /uL (0-1359); URINE BILIRUBIN NEGATIVE (NEGATIVE); URINE COLOR ORANGE; URINE GLUCOSE (UA) NEGATIVE (NEGATIVE); URINE KETONE NEGATIVE (NEGATIVE); URINE LEUK ESTERASE NEGATIVE (NEGATIVE); URINE NITRITE NEGATIVE (NEGATIVE); URINE PROTEIN 1+ (NEGATIVE); URINE RBC 11 /uL (0-23.9); URINE WBC 13 /uL (0-25.8)
[2022-03-09 19:23] LABS: INR 1.14 (0.83-1.09); PROTHROMBIN TIME (PATIENT) 13.1 SEC (9.7-13.0)
[2022-03-09 19:25] LABS: ACTIVATED PTT 27.1 SECONDS (25.2-36.5)
[2022-03-09 19:29] LABS: CHLORIDE 99 mmol/L (98-107); SODIUM 136 mmol/L (136-145)
[2022-03-09 19:30] LABS: VENOUS BASE EXCESS 0.6 mmol/L (-2-2); VENOUS O2 SATURATION 75.8 % (70-80); VENOUS PH 7.394 (7.310-7.410)
[2022-03-09 19:31] LABS: ALBUMIN 3.5 g/dl (3.4-5.0); ANION GAP 11 MMOL/L (8-16); CALCIUM 9.2 mg/dL (8.5-10.1); CO2 27 mmol/L (21-32); GLUCOSE,RANDOM 132 mg/dL (74-106)
[2022-03-09 19:32] LABS: BLOOD UREA NITROGEN 11.7 mg/dL (7-18)
[2022-03-09 19:34] LABS: CREATININE 0.8 mg/dL (0.55-1.3); SGOT/AST 134 U/L (15-37)
[2022-03-09 19:35] LABS: SGPT/ALT 64 U/L (13-61)
[2022-03-09 19:36] LABS: BILIRUBIN,TOTAL 1.6 mg/dL (0.2-1); TOT PROT 7.8 g/dl (6.4-8.2)
[2022-03-09 19:37] LABS: ALK PHOS 231 U/L (45-117)
[2022-03-09] MEDS ORDERED: LIDOCAINE HCL 2% (20ML MULTI-DOSE VIAL) ONE (21:30)
[2022-03-09 23:35] LABS: CSF APPEARANCE CLEAR (CLEAR); CSF COLOR COLORLESS (COLORLESS); CSF WBC 0 mm3 (0-5)
[2022-03-09] MEDS ORDERED: AMOX TR/POT CLAV 875MG/125MG TABLETS (FP) PO ONE (23:58)
[2022-03-10] MEDS ORDERED: AMOX TR/POT CLAV 875MG/125MG TABLETS (FP) ONE (00:23)
[2022-03-10 00:26] LABS: BF GLUCOSE (CSF ONLY) 107 mg/dL (40-70)
[2022-03-10 00:28] VITALS: BP 110/60; PULSE 95; TEMP 98.9
== END 2022-03-10 00:28 | disposition home or self-care (01) ==
LOC: JER 16:06
PROC: 3E0333Z Introduction of Anti-inflammatory into Peripheral Vein, Percutaneous Approach (ICD-10-PCS; principal; 2022-03-09)
PROC: 3E03329 Introduction of Other Anti-infective into Peripheral Vein, Percutaneous Approach (ICD-10-PCS; 2022-03-09)
PROC: 3E033GC Introduction of Other Therapeutic Substance into Peripheral Vein, Percutaneous Approach (ICD-10-PCS; 2022-03-09)
PROC: 3E03329 Introduction of Other Anti-infective into Peripheral Vein, Percutaneous Approach (ICD-10-PCS; 2022-03-09)
PROC: 009U3ZZ Drainage of Spinal Canal, Percutaneous Approach (ICD-10-PCS; 2022-03-09)
DX: R50.9 Fever, unspecified (principal); R51.9 Headache, unspecified
CPT/HCPCS: 0241U-QW; 36415; 70450-TC; 71045-TC-FY; 80053; 81003; 82553; 82803; 82945; 83605; 84157; 84484; 85025; 85610; 85730; 86644; 86850; 86900; 86901; 87040; 87070; 87086; 87205; 87252; 87529; 93005; 93010; 99285-25

== ENCOUNTER 2022-06-06 13:52 | Inpatient (IN) | payer OTHER ==
[2022-06-06] MEDS ORDERED: SODIUM CHLORIDE 2,368 ML IV ONE (14:20)
[2022-06-06] MEDS ORDERED: ACETAMINOPHEN 1000 MG/100 ML BAG IVPB ONE (14:21)
[2022-06-06] MEDS ORDERED: ACETAMINOPHEN INJECTION 100 ML IVPB ONE (14:27)
[2022-06-06] MEDS ORDERED: CEFEPIME HCL/D5W 2 GM/50 ML BAG IVPB ONE (14:49)
[2022-06-06] MEDS ORDERED: VANCOMYCIN 1 GM in D5W (PRE-DOCKED) 1,000 MG/250 ML IVPB ONE (14:51)
[2022-06-06] MEDS ORDERED: CEFEPIME 2 GM/100 ML BAG IVPB ONE (14:53)
[2022-06-06] MEDS ORDERED: VANCOMYCIN 1 GM in D5W (PRE-DOCKED) 1,000 MG/250 ML IVPB SCH (15:00)
[2022-06-06] MEDS ORDERED: VANCOMYCIN/WATER 2 GM/400 ML PREMIX BAG IVPB ONE (15:01)
[2022-06-06 15:09] LABS: VENOUS BASE EXCESS -0.5 mmol/L (-2-2); VENOUS O2 SATURATION 93.7 % (70-80); VENOUS PCO2 33.4 mmHg (38-52); VENOUS PH 7.452 (7.310-7.410)
[2022-06-06] MEDS ORDERED: ONDANSETRON 4 MG/2 ML VIAL IVPUSH ONE (15:26)
[2022-06-06 15:27] LABS: BASO % 0.9 % (0-2.0); HEMOGLOBIN 10.7 GM/dL (10.7-15.3); MCH 22.5 pg (25.7-33.7); MCHC 30.4 g/dl (32.0-36.0); MEAN PLT VOLUME 8.7 fl (7.5-11.1); NEUT % 79.1 % (42.8-82.8); PLATELET COUNT 457 10^3/uL (134-434); RBC 4.73 M/mm3 (3.60-5.2); WHITE BLOOD COUNT 14.5 K/mm3 (4.0-10.0)
[2022-06-06] MEDS ORDERED: ONDANSETRON 4 MG/2 ML VIAL ONE (15:30)
[2022-06-06 15:33] LABS: INR 1.21 (0.83-1.09); PROTHROMBIN TIME (PATIENT) 13.9 SEC (9.7-13.0)
[2022-06-06 15:36] LABS: ACTIVATED PTT 29.8 SECONDS (25.2-36.5)
[2022-06-06 15:49] LABS: CALCIUM 9.4 mg/dL (8.5-10.1)
[2022-06-06 15:51] LABS: BLOOD UREA NITROGEN 6.2 mg/dL (7-18)
[2022-06-06 15:53] LABS: CREATININE 0.8 mg/dL (0.55-1.3)
[2022-06-06 15:55] LABS: BILIRUBIN,TOTAL 1.4 mg/dL (0.2-1)
[2022-06-06 16:00] LABS: LACTIC ACID 3.9 mmol/L (0.4-2.0)
[2022-06-06 16:49] LABS: ANISOCYTOSIS 2+; MACROCYTOSIS 0
[2022-06-06 17:33] LABS: EPI CELLS 34 /uL (0-25.1); HYALINE CASTS 1 /uL (0-3.1); PH,URINE 7.5 (5.0-8.0); URINE APPEARANCE CLEAR; URINE BACTERIA 91 /uL (0-1359); URINE BILIRUBIN NEGATIVE (NEGATIVE); URINE COLOR YELLOW; URINE GLUCOSE (UA) TRACE (NEGATIVE); URINE KETONE NEGATIVE (NEGATIVE); URINE LEUK ESTERASE 1+ (NEGATIVE); URINE NITRITE NEGATIVE (NEGATIVE); URINE PROTEIN TRACE (NEGATIVE); URINE RBC 12 /uL (0-23.9); URINE WBC 20 /uL (0-25.8)
[2022-06-06] MEDS ORDERED: LACTATED RINGERS SOLUTION 1,000 ML/1,000 ML INFUS.BAG IV SCH (21:45)
[2022-06-06] MEDS: CEFEPIME 1 GM in DEXTROSE 5%-WATER 100 ML IVPB SCH (22:42)
[2022-06-07] MEDS: CEFEPIME 1 GM in DEXTROSE 5%-WATER 100 ML IVPB SCH ×4 (02:48→22:55)
[2022-06-07 03:51] VITALS: BMI 27.1
[2022-06-07] MEDS: ACETAMINOPHEN 325 MG TABLET (FP) PO PRN (06:00)
[2022-06-07] MEDS ORDERED: INSULIN SLIDING SCALE (NOVOLOG) 1 VIAL SQ SCH (07:00)
[2022-06-07] MEDS: INSULIN SLIDING SCALE (NOVOLOG) 1 VIAL SQ SCH ×4 (07:31→21:27)
[2022-06-07] MEDS ORDERED: ONDANSETRON 4 MG TABLET PO ONE (09:36)
[2022-06-07] MEDS: PANTOPRAZOLE 40 MG TABLET PO SCH (09:42)
[2022-06-07] MEDS: amLODIPine BESYLATE 5 MG TABLET (FP) PO SCH (09:42)
[2022-06-07] MEDS: metoPROLOL SUCCINATE 25 MG TAB.SR.24H (FP) PO SCH (09:43)
[2022-06-07] MEDS: ONDANSETRON 8 MG TABLET (FP) PO SCH (09:43)
[2022-06-07] MEDS: ENOXAPARIN NA (PORCINE) 40 MG/0.4 ML DISP.SYRIN SQ SCH (09:50)
[2022-06-07] MEDS ORDERED: ONDANSETRON 8 MG PO SCH (10:00)
[2022-06-07 10:19] LABS: BASO % 0.9 % (0-2.0); EOS % 0.1 % (0-4.5); HEMATOCRIT 29.6 % (32.4-45.2); HEMOGLOBIN 9.4 GM/dL (10.7-15.3); LYMPH % 9.4 % (8-40); MCH 23.2 pg (25.7-33.7); MCHC 31.8 g/dl (32.0-36.0); MEAN PLT VOLUME 8.3 fl (7.5-11.1); MONO % 15.5 % (3.8-10.2); NEUT % 74.1 % (42.8-82.8); PLATELET COUNT 373 10^3/uL (134-434); RBC 4.06 M/mm3 (3.60-5.2); RDW 25.8 % (11.6-15.6); WHITE BLOOD COUNT 12.4 K/mm3 (4.0-10.0)
[2022-06-07 10:56] LABS: ALBUMIN 2.6 g/dl (3.4-5.0); BILIRUBIN,TOTAL 1.6 mg/dL (0.2-1); BLOOD UREA NITROGEN 5.3 mg/dL (7-18); MAGNESIUM 2.3 mg/dL (1.8-2.4); TOT PROT 7.3 g/dl (6.4-8.2)
[2022-06-07 11:00] LABS: CREATININE 0.5 mg/dL (0.55-1.3); PHOSPHOROUS 2.6 mg/dL (2.5-4.9)
[2022-06-07] MEDS: PIPERACILLIN/TAZOB 3.375 GM 3.375 GM in DEXTROSE 5%-WATER - 50 ML IVPB SCH (17:27)
[2022-06-07] MEDS ORDERED: INSULIN (NOVOLOG) ASPART 100 UNITS/ML 10ML VIAL ONE (20:45)
[2022-06-07] MEDS: MELATONIN 5 MG TABLETS PO PRN (21:27)
[2022-06-07] MEDS: ATORVASTATIN CA 80 MG TABLET (FP) PO SCH (21:27)
[2022-06-08] MEDS: PIPERACILLIN/TAZOB 3.375 GM 3.375 GM in DEXTROSE 5%-WATER - 50 ML IVPB SCH ×3 (01:29→18:25)
[2022-06-08] MEDS: INSULIN SLIDING SCALE (NOVOLOG) 1 VIAL SQ SCH ×4 (07:01→21:21)
[2022-06-08] MEDS ORDERED: ONDANSETRON 4 MG TABLET PO ONE (10:11)
[2022-06-08 10:17] LABS: BASO % 1.6 % (0-2.0); EOS % 0.2 % (0-4.5); HEMATOCRIT 30.9 % (32.4-45.2); HEMOGLOBIN 9.5 GM/dL (10.7-15.3); LYMPH % 13.8 % (8-40); MCH 22.4 pg (25.7-33.7); MCHC 30.7 g/dl (32.0-36.0); MEAN PLT VOLUME 8.5 fl (7.5-11.1); MONO % 15.1 % (3.8-10.2); NEUT % 69.3 % (42.8-82.8); PLATELET COUNT 389 10^3/uL (134-434); RBC 4.23 M/mm3 (3.60-5.2); RDW 26.3 % (11.6-15.6)
[2022-06-08] MEDS: amLODIPine BESYLATE 5 MG TABLET (FP) PO SCH (10:22)
[2022-06-08] MEDS: PANTOPRAZOLE 40 MG TABLET PO SCH (10:22)
[2022-06-08] MEDS: metoPROLOL SUCCINATE 25 MG TAB.SR.24H (FP) PO SCH ×2 (10:22→10:23)
[2022-06-08] MEDS: ENOXAPARIN NA (PORCINE) 40 MG/0.4 ML DISP.SYRIN SQ SCH (10:23)
[2022-06-08] MEDS: ONDANSETRON 8 MG TABLET (FP) PO SCH (10:23)
[2022-06-08 10:47] LABS: ALBUMIN 2.6 g/dl (3.4-5.0); BLOOD UREA NITROGEN 6.5 mg/dL (7-18); CALCIUM 9.3 mg/dL (8.5-10.1)
[2022-06-08 10:49] LABS: CREATININE 0.6 mg/dL (0.55-1.3)
[2022-06-08 10:51] LABS: BILIRUBIN,TOTAL 1.9 mg/dL (0.2-1); TOT PROT 7.4 g/dl (6.4-8.2)
[2022-06-08] MEDS: ACETAMINOPHEN 325 MG TABLET (FP) PO PRN (18:25)
[2022-06-08] MEDS: ATORVASTATIN CA 80 MG TABLET (FP) PO SCH (21:13)
[2022-06-08] MEDS: MELATONIN 5 MG TABLETS PO PRN (21:14)
[2022-06-09] MEDS: PIPERACILLIN/TAZOB 3.375 GM 3.375 GM in DEXTROSE 5%-WATER - 50 ML IVPB SCH ×3 (01:24→18:47)
[2022-06-09] MEDS: ACETAMINOPHEN 325 MG TABLET (FP) PO PRN ×2 (01:24→15:09)
[2022-06-09] MEDS: INSULIN SLIDING SCALE (NOVOLOG) 1 VIAL SQ SCH ×4 (06:41→21:53)
[2022-06-09] MEDS ORDERED: ONDANSETRON 4 MG TABLET PO ONE (11:38)
[2022-06-09] MEDS: amLODIPine BESYLATE 5 MG TABLET (FP) PO SCH (11:43)
[2022-06-09] MEDS: PANTOPRAZOLE 40 MG TABLET PO SCH (11:43)
[2022-06-09] MEDS: metoPROLOL SUCCINATE 25 MG TAB.SR.24H (FP) PO SCH (11:43)
[2022-06-09] MEDS: ENOXAPARIN NA (PORCINE) 40 MG/0.4 ML DISP.SYRIN SQ SCH (11:44)
[2022-06-09] MEDS: ONDANSETRON 8 MG TABLET (FP) PO SCH (11:44)
[2022-06-09 13:41] LABS: BASO % 1.3 % (0-2.0); EOS % 0.4 % (0-4.5); HEMATOCRIT 28.7 % (32.4-45.2); LYMPH % 10.4 % (8-40); MCH 22.8 pg (25.7-33.7); MCHC 31.2 g/dl (32.0-36.0); MEAN CELL VOLUME 73.3 fl (80-96); MONO % 10.2 % (3.8-10.2); NEUT % 77.7 % (42.8-82.8); PLATELET COUNT 372 10^3/uL (134-434); RBC 3.92 M/mm3 (3.60-5.2); RDW 26.8 % (11.6-15.6); WHITE BLOOD COUNT 10.2 K/mm3 (4.0-10.0)
[2022-06-09 13:47] LABS: ALBUMIN 2.4 g/dl (3.4-5.0); CALCIUM 8.7 mg/dL (8.5-10.1)
[2022-06-09 13:48] LABS: BLOOD UREA NITROGEN 8.4 mg/dL (7-18)
[2022-06-09 13:50] LABS: CREATININE 0.6 mg/dL (0.55-1.3)
[2022-06-09 13:52] LABS: BILIRUBIN,TOTAL 1.8 mg/dL (0.2-1)
[2022-06-09] MEDS: ATORVASTATIN CA 80 MG TABLET (FP) PO SCH (21:46)
[2022-06-09] MEDS: MELATONIN 5 MG TABLETS PO PRN (21:47)
[2022-06-10] MEDS: PIPERACILLIN/TAZOB 3.375 GM 3.375 GM in DEXTROSE 5%-WATER - 50 ML IVPB SCH ×3 (01:45→18:58)
[2022-06-10] MEDS: ACETAMINOPHEN 325 MG TABLET (FP) PO PRN ×3 (02:10→21:59)
[2022-06-10] MEDS: INSULIN SLIDING SCALE (NOVOLOG) 1 VIAL SQ SCH ×4 (06:26→21:58)
[2022-06-10 10:31] LABS: BASO % 1.2 % (0-2.0); EOS % 0.5 % (0-4.5); HEMATOCRIT 31.3 % (32.4-45.2); HEMOGLOBIN 9.5 GM/dL (10.7-15.3); LYMPH % 12.3 % (8-40); MCH 22.7 pg (25.7-33.7); MCHC 30.5 g/dl (32.0-36.0); MEAN CELL VOLUME 74.5 fl (80-96); MEAN PLT VOLUME 8.5 fl (7.5-11.1); MONO % 9.5 % (3.8-10.2); NEUT % 76.5 % (42.8-82.8); PLATELET COUNT 426 10^3/uL (134-434); RDW 26.8 % (11.6-15.6)
[2022-06-10 10:55] LABS: CALCIUM 9.2 mg/dL (8.5-10.1)
[2022-06-10 10:56] LABS: ALBUMIN 2.5 g/dl (3.4-5.0); BLOOD UREA NITROGEN 5.7 mg/dL (7-18); MAGNESIUM 2.2 mg/dL (1.8-2.4)
[2022-06-10] MEDS ORDERED: ONDANSETRON 4 MG TABLET PO ONE (10:58)
[2022-06-10 10:59] LABS: CREATININE 0.7 mg/dL (0.55-1.3)
[2022-06-10 11:00] LABS: TOT PROT 7.2 g/dl (6.4-8.2)
[2022-06-10 11:02] LABS: BILIRUBIN,TOTAL 1.6 mg/dL (0.2-1)
[2022-06-10] MEDS: amLODIPine BESYLATE 5 MG TABLET (FP) PO SCH (11:05)
[2022-06-10] MEDS: metoPROLOL SUCCINATE 25 MG TAB.SR.24H (FP) PO SCH (11:05)
[2022-06-10] MEDS: ONDANSETRON 8 MG TABLET (FP) PO SCH (11:05)
[2022-06-10] MEDS: ENOXAPARIN NA (PORCINE) 40 MG/0.4 ML DISP.SYRIN SQ SCH (11:06)
[2022-06-10] MEDS: PANTOPRAZOLE 40 MG TABLET PO SCH (11:06)
[2022-06-10] MEDS: POLYETHYLENE GLYCOL (HEALTHYLAX) 3350 17 GM PACKET PO SCH (16:08)
[2022-06-10] MEDS ORDERED: PIPERACILLIN/TAZOBACTAM 3.375 GM VIAL IVPB ONE (18:47)
[2022-06-10] MEDS: ATORVASTATIN CA 80 MG TABLET (FP) PO SCH (21:58)
[2022-06-10] MEDS: MELATONIN 5 MG TABLETS PO PRN (21:59)
[2022-06-10] MEDS ORDERED: morphine SULFATE 4 MG/ML VIAL IVPUSH ONE (23:19)
[2022-06-11] MEDS ORDERED: PIPERACILLIN/TAZOBACTAM 3.375 GM VIAL IVPB ONE (01:34)
[2022-06-11] MEDS: PIPERACILLIN/TAZOB 3.375 GM 3.375 GM in DEXTROSE 5%-WATER - 50 ML IVPB SCH ×3 (01:39→18:44)
[2022-06-11] MEDS: INSULIN SLIDING SCALE (NOVOLOG) 1 VIAL SQ SCH ×4 (06:12→21:44)
[2022-06-11] MEDS ORDERED: ONDANSETRON 4 MG TABLET PO ONE (10:18)
[2022-06-11] MEDS: POLYETHYLENE GLYCOL (HEALTHYLAX) 3350 17 GM PACKET PO SCH ×2 (11:25→21:45)
[2022-06-11 11:29] LABS: BASO % 0.7 % (0-2.0); EOS % 0.4 % (0-4.5); HEMATOCRIT 29.7 % (32.4-45.2); HEMOGLOBIN 9.2 GM/dL (10.7-15.3); LYMPH % 11.5 % (8-40); MCH 22.6 pg (25.7-33.7); MCHC 30.9 g/dl (32.0-36.0); MEAN CELL VOLUME 73.2 fl (80-96); MEAN PLT VOLUME 8.8 fl (7.5-11.1); MONO % 8.7 % (3.8-10.2); NEUT % 78.7 % (42.8-82.8); PLATELET COUNT 403 10^3/uL (134-434); RBC 4.06 M/mm3 (3.60-5.2); RDW 26.9 % (11.6-15.6); WHITE BLOOD COUNT 9.1 K/mm3 (4.0-10.0)
[2022-06-11] MEDS: PANTOPRAZOLE 40 MG TABLET PO SCH (11:31)
[2022-06-11] MEDS: amLODIPine BESYLATE 5 MG TABLET (FP) PO SCH (11:31)
[2022-06-11] MEDS: ENOXAPARIN NA (PORCINE) 40 MG/0.4 ML DISP.SYRIN SQ SCH (11:32)
[2022-06-11] MEDS: metoPROLOL SUCCINATE 25 MG TAB.SR.24H (FP) PO SCH (11:32)
[2022-06-11] MEDS: ONDANSETRON 8 MG TABLET (FP) PO SCH (11:32)
[2022-06-11 11:44] LABS: BLOOD UREA NITROGEN 5.8 mg/dL (7-18); CALCIUM 9.1 mg/dL (8.5-10.1)
[2022-06-11 11:49] LABS: CREATININE 0.5 mg/dL (0.55-1.3)
[2022-06-11] MEDS ORDERED: morphine SULFATE 4 MG/ML VIAL IV ONE (12:00)
[2022-06-11] MEDS: morphine SULFATE 4 MG/ML VIAL IVPUSH PRN (20:17)
[2022-06-11] MEDS: ATORVASTATIN CA 80 MG TABLET (FP) PO SCH (21:44)
[2022-06-12] MEDS: PIPERACILLIN/TAZOB 3.375 GM 3.375 GM in DEXTROSE 5%-WATER - 50 ML IVPB SCH ×2 (02:23→12:24)
[2022-06-12] MEDS: INSULIN SLIDING SCALE (NOVOLOG) 1 VIAL SQ SCH ×4 (06:23→21:47)
[2022-06-12] MEDS ORDERED: ONDANSETRON 4 MG TABLET PO ONE (12:08)
[2022-06-12] MEDS: amLODIPine BESYLATE 5 MG TABLET (FP) PO SCH (12:24)
[2022-06-12] MEDS: ENOXAPARIN NA (PORCINE) 40 MG/0.4 ML DISP.SYRIN SQ SCH (12:24)
[2022-06-12] MEDS: ONDANSETRON 8 MG TABLET (FP) PO SCH (12:25)
[2022-06-12] MEDS: POLYETHYLENE GLYCOL (HEALTHYLAX) 3350 17 GM PACKET PO SCH ×2 (12:25→21:12)
[2022-06-12] MEDS: metoPROLOL SUCCINATE 25 MG TAB.SR.24H (FP) PO SCH (12:25)
[2022-06-12] MEDS: PANTOPRAZOLE 40 MG TABLET PO SCH (12:25)
[2022-06-12] MEDS ORDERED: IRON SUCROSE INJECTION 200 MG in SODIUM CHLORIDE 90 ML IVPB ONE (12:30)
[2022-06-12] MEDS: morphine SULFATE 4 MG/ML VIAL IVPUSH PRN (18:57)
[2022-06-12] MEDS: MELATONIN 5 MG TABLETS PO PRN (21:12)
[2022-06-12] MEDS: ATORVASTATIN CA 80 MG TABLET (FP) PO SCH (21:12)
[2022-06-13] MEDS: POLYETHYLENE GLYCOL (HEALTHYLAX) 3350 17 GM PACKET PO SCH ×2 (06:26→13:52)
[2022-06-13] MEDS: morphine SULFATE 4 MG/ML VIAL IVPUSH PRN (07:00)
[2022-06-13] MEDS: INSULIN SLIDING SCALE (NOVOLOG) 1 VIAL SQ SCH ×2 (07:02→11:41)
[2022-06-13] MEDS ORDERED: ONDANSETRON 4 MG TABLET PO ONE (09:58)
[2022-06-13] MEDS: ENOXAPARIN NA (PORCINE) 40 MG/0.4 ML DISP.SYRIN SQ SCH (10:01)
[2022-06-13] MEDS: metoPROLOL SUCCINATE 25 MG TAB.SR.24H (FP) PO SCH (10:02)
[2022-06-13] MEDS: PANTOPRAZOLE 40 MG TABLET PO SCH (10:02)
[2022-06-13] MEDS: amLODIPine BESYLATE 5 MG TABLET (FP) PO SCH (10:02)
[2022-06-13] MEDS: ONDANSETRON 8 MG TABLET (FP) PO SCH (10:03)
[2022-06-13 10:07] LABS: BASO % 0.9 % (0-2.0); EOS % 0.2 % (0-4.5); HEMATOCRIT 29.1 % (32.4-45.2); HEMOGLOBIN 9.3 GM/dL (10.7-15.3); LYMPH % 12.9 % (8-40); MCH 23.4 pg (25.7-33.7); MCHC 31.8 g/dl (32.0-36.0); MEAN CELL VOLUME 73.6 fl (80-96); MEAN PLT VOLUME 8.5 fl (7.5-11.1); MONO % 11.4 % (3.8-10.2); NEUT % 74.6 % (42.8-82.8); PLATELET COUNT 439 10^3/uL (134-434); RBC 3.95 M/mm3 (3.60-5.2); WHITE BLOOD COUNT 10.6 K/mm3 (4.0-10.0)
[2022-06-13 10:51] LABS: BLOOD UREA NITROGEN 4.7 mg/dL (7-18); CALCIUM 9.2 mg/dL (8.5-10.1)
[2022-06-13 10:52] LABS: ALBUMIN 2.5 g/dl (3.4-5.0); MAGNESIUM 2.2 mg/dL (1.8-2.4)
[2022-06-13 10:53] LABS: CREATININE 0.6 mg/dL (0.55-1.3)
[2022-06-13 10:55] LABS: BILIRUBIN,TOTAL 1.8 mg/dL (0.2-1); TOT PROT 7.3 g/dl (6.4-8.2)
[2022-06-13 14:17] VITALS: BP 112/77; PULSE 92; RESP 18; TEMP 98.4
== END 2022-06-13 17:16 | disposition home or self-care (01) | DRG 871 ==
LOC: JER 13:52 → JERBED 15:43 → J8W 20:48
PROVIDERS: ADMIT Internal Medicine; ATTEND Internal Medicine
DX: A41.9 Sepsis, unspecified organism (principal); U07.1 COVID-19; K81.0 Acute cholecystitis; C18.9 Malignant neoplasm of colon, unspecified; C78.7 Secondary malignant neoplasm of liver and intrahepatic bile duct; D64.9 Anemia, unspecified; I10 Essential (primary) hypertension; R10.11 Right upper quadrant pain; D72.829 Elevated white blood cell count, unspecified; F41.8 Other specified anxiety disorders; K21.9 Gastro-esophageal reflux disease without esophagitis; R74.01 Elevation of levels of liver transaminase levels; E78.5 Hyperlipidemia, unspecified
CPT/HCPCS: 0241U-QW; 36415; 71045-TC-FY; 74177-TC; 76700-TC; 78226-TC; 80048; 80053; 80061; 81003; 82248; 82533; 82728; 82803; 82962; 83036; 83540; 83550; 83605; 83690; 83735; 84100; 84443; 85025; 85610; 85730; 86140; 86704; 86803; 86850; 86900; 86901; 87040; 87086; 87340; 87517; 93005; 93010; 99285-25; A9537; C9803-CS; J1756; Q9967; U0003; U0005

== ENCOUNTER 2022-07-06 16:38 | Inpatient (IN) | payer OTHER ==
[2022-07-06] MEDS ORDERED: DEXTROSE 50%-WATER 25 GM/50 ML DISP.SYRIN ONE (16:45)
[2022-07-06] MEDS ORDERED: DEXTROSE 50%-WATER - 25 GM/50 ML VIAL IVPUSH ONE ×2 (17:03→17:04)
[2022-07-06] MEDS ORDERED: CALCIUM GLUC IN NACL, ISO-OSM 1 GM/50 ML BAG IVPB ONE ×2 (17:04→17:07)
[2022-07-06] MEDS ORDERED: SODIUM CHLORIDE 0.9% 500 ML INFUS.BAG IV ONE ×2 (17:04→18:06)
[2022-07-06] MEDS ORDERED: ALBUTEROL SO4 0.083% IH SOL 2.5 MG/3 ML VIAL.NEB. NEB ONE (17:15)
[2022-07-06 17:20] LABS: VENOUS BASE EXCESS -16.3 mmol/L (-2-2); VENOUS PCO2 19.5 mmHg (38-52); VENOUS PH 7.245 (7.310-7.410)
[2022-07-06 17:25] LABS: HEMATOCRIT 28.6 % (32.4-45.2); HEMOGLOBIN 8.6 GM/dL (10.7-15.3); MCH 23.6 pg (25.7-33.7); MCHC 30.1 g/dl (32.0-36.0); MEAN CELL VOLUME 78.3 fl (80-96); PLATELET COUNT 523 10^3/uL (134-434); RBC 3.66 M/mm3 (3.60-5.2); RDW 27.2 % (11.6-15.6); WHITE BLOOD COUNT 26.8 K/mm3 (4.0-10.0)
[2022-07-06 17:32] LABS: EPI CELLS >36 /uL (0-25.1); HYALINE CASTS 12 /uL (0-3.1); URINE APPEARANCE TURBID; URINE BILIRUBIN 3+ (NEGATIVE); URINE COLOR DK YELLOW; URINE GLUCOSE (UA) NEGATIVE (NEGATIVE); URINE KETONE NEGATIVE (NEGATIVE); URINE LEUK ESTERASE 1+ (NEGATIVE); URINE NITRITE POSITIVE (NEGATIVE); URINE PROTEIN 3+ (NEGATIVE); URINE WBC 100 /uL (0-25.8)
[2022-07-06] MEDS ORDERED: CALCIUM GLUCONATE 10% - 1,000 MG/10 ML VIAL ONE (17:32)
[2022-07-06 17:34] LABS: ACTIVATED PTT 50.8 SECONDS (25.2-36.5)
[2022-07-06] MEDS ORDERED: CALCIUM CHLORIDE 1 GM/10 ML *DISP.SYRIN ONE (17:35)
[2022-07-06] MEDS ORDERED: CALCIUM CHLORIDE 1 GM/10 ML *DISP.SYRIN IVPB ONE (17:37)
[2022-07-06 17:53] LABS: BLOOD UREA NITROGEN 54.4 mg/dL (7-18); CO2 8 mmol/L (21-32)
[2022-07-06] MEDS ORDERED: INSULIN REGULAR HUMAN 100 UNITS/ML *VIAL IVPUSH ONE (17:53)
[2022-07-06 17:54] LABS: ALBUMIN 1.8 g/dl (3.4-5.0)
[2022-07-06 17:56] LABS: CREATININE 4.5 mg/dL (0.55-1.3); SGPT/ALT 298 U/L (13-61)
[2022-07-06 17:58] LABS: BILIRUBIN,TOTAL 13.1 mg/dL (0.2-1)
[2022-07-06 17:59] LABS: ALK PHOS 896 U/L (45-117)
[2022-07-06] MEDS ORDERED: VANCOMYCIN 1 GM in D5W (PRE-DOCKED) 1,000 MG/250 ML IVPB ONE (18:01)
[2022-07-06] MEDS ORDERED: PIPERACILLIN/TAZOB 4.5 GM 4.5 GM in DEXTROSE 5%-WATER 100 ML IVPB ONE (18:01)
[2022-07-06 18:03] LABS: VENOUS BASE EXCESS -18.2 mmol/L (-2-2); VENOUS O2 SATURATION 82.3 % (70-80); VENOUS PCO2 21.5 mmHg (38-52)
[2022-07-06 18:04] LABS: INR 8.98 (0.83-1.09); PROTHROMBIN TIME (PATIENT) 105.6 SEC (9.7-13.0)
[2022-07-06 18:04] LABS: VENOUS PH 7.196 (7.310-7.410)
[2022-07-06 18:14] LABS: ANISOCYTOSIS 1+; MACROCYTOSIS 0; PLATELET ESTIMATE NORMAL; TARGET CELLS 1+
[2022-07-06 18:16] LABS: ANION GAP 29 MMOL/L (8-16); CALCIUM 6.9 mg/dL (8.5-10.1); CHLORIDE 91 mmol/L (98-107); GLUCOSE,RANDOM 42 mg/dL (74-106); SGOT/AST > 2002 U/L (15-37); SODIUM 128 mmol/L (136-145)
[2022-07-06] MEDS ORDERED: PIPERACILLIN/TAZOB 4.5 GM 4.5 GM/100 ML BAG IVPB ONE (18:16)
[2022-07-06] MEDS ORDERED: VANCOMYCIN/WATER FOR INJ (PEG) 1,000 MG/200 ML BAG IVPB ONE (18:16)
[2022-07-06] MEDS ORDERED: NOREPINEPHRINE BITARTRATE/D5W 8 MG/250 ML BAG IVPB ONE (18:23)
[2022-07-06 18:59] LABS: LACTIC ACID 15.5 mmol/L (0.4-2.0)
[2022-07-06] MEDS ORDERED: LACTULOSE 20 GM/30 ML UDC (FOR ORAL USE ONLY) PO ONE (19:11)
[2022-07-06 19:35] LABS: URINE RBC 651.3 /uL (0-23.9)
[2022-07-06 19:36] LABS: URINE BACTERIA 13.3 /uL (0-1359); YEAST NONE SEEN (NEGATIVE)
[2022-07-06] MEDS: NOREPINEPHRINE BITARTRATE/D5W 8 MG/250 ML BAG IVPB SCH (19:40)
[2022-07-06] MEDS ORDERED: LACTULOSE 20 GM/30 ML UDC (FOR ORAL USE ONLY) ONE (19:49)
[2022-07-06 21:21] LABS: HEMATOCRIT 26.6 % (32.4-45.2); HEMOGLOBIN 7.9 GM/dL (10.7-15.3); MCHC 29.7 g/dl (32.0-36.0); MEAN CELL VOLUME 80.8 fl (80-96); MEAN PLT VOLUME 8.1 fl (7.5-11.1); RDW 27.5 % (11.6-15.6); WHITE BLOOD COUNT 32.3 K/mm3 (4.0-10.0)
[2022-07-06] MEDS ORDERED: PIPERACILLIN/TAZOB 3.375 GM 3.375 GM in DEXTROSE 5%-WATER - 50 ML IVPB SCH (22:00)
[2022-07-06 22:10] LABS: LACTIC ACID 14.2 mmol/L (0.4-2.0)
[2022-07-06 22:30] LABS: ANISOCYTOSIS 1+; MACROCYTOSIS 0; PLATELET ESTIMATE NORMAL
[2022-07-06 22:39] LABS: ALBUMIN 1.3 g/dl (3.4-5.0); ALK PHOS 692 U/L (45-117); ANION GAP 26 MMOL/L (8-16); BILIRUBIN,TOTAL 10.5 mg/dL (0.2-1); BLOOD UREA NITROGEN 47.3 mg/dL (7-18); CALCIUM 6.4 mg/dL (8.5-10.1); CHLORIDE 101 mmol/L (98-107); CO2 8 mmol/L (21-32); CREATININE 3.8 mg/dL (0.55-1.3); GLUCOSE,RANDOM 117 mg/dL (74-106); PHOSPHOROUS 7.5 mg/dL (2.5-4.9); SGOT/AST 2296 U/L (15-37); SGPT/ALT 270 U/L (13-61); SODIUM 135 mmol/L (136-145); TOT PROT 4.7 g/dl (6.4-8.2)
[2022-07-06] MEDS ORDERED: LORazepam 2 MG/ML SDV VIAL IVPUSH STA (22:41)
[2022-07-06] MEDS: PIPERACILLIN/TAZOB 3.375 GM 3.375 GM in DEXTROSE 5%-WATER - 50 ML IVPB SCH (22:48)
[2022-07-06] MEDS ORDERED: VASOPRESSIN 40 UNITS/100 ML BAG IV SCH (23:30)
[2022-07-07 02:53] VITALS: BMI 28.6
[2022-07-07 07:03] LABS: HEMATOCRIT 27.9 % (32.4-45.2); HEMOGLOBIN 8.1 GM/dL (10.7-15.3); MCH 23.8 pg (25.7-33.7); MCHC 29.2 g/dl (32.0-36.0); MEAN CELL VOLUME 81.4 fl (80-96); MEAN PLT VOLUME 7.7 fl (7.5-11.1); PLATELET COUNT 434 10^3/uL (134-434); RBC 3.43 M/mm3 (3.60-5.2); RDW 27.8 % (11.6-15.6)
[2022-07-07 07:15] LABS: ACTIVATED PTT 57.7 SECONDS (25.2-36.5)
[2022-07-07] MEDS: HYDROCORTISONE SOD SUCCINATE 100 MG/2 ML VIAL IVPB SCH ×2 (07:15→13:07)
[2022-07-07 07:24] LABS: WHITE BLOOD COUNT 35.9 K/mm3 (4.0-10.0)
[2022-07-07 08:43] LABS: PROTHROMBIN TIME (PATIENT) 119.5 SEC (9.7-13.0)
[2022-07-07 08:47] LABS: INR 10.15 (0.83-1.09)
[2022-07-07 08:54] LABS: ALBUMIN 1.6 g/dl (3.4-5.0); ALK PHOS 888 U/L (45-117); ANION GAP 29 MMOL/L (8-16); BILIRUBIN,DIRECT 10.6 mg/dL (0.0-0.2); BILIRUBIN,TOTAL 12.7 mg/dL (0.2-1); BLOOD UREA NITROGEN 56.6 mg/dL (7-18); CALCIUM 6.9 mg/dL (8.5-10.1); CHLORIDE 90 mmol/L (98-107); CO2 6 mmol/L (21-32); CREATININE 5.1 mg/dL (0.55-1.3); GLUCOSE,RANDOM 71 mg/dL (74-106); MAGNESIUM 3.1 mg/dL (1.8-2.4); SGPT/ALT 485 U/L (13-61); SODIUM 125 mmol/L (136-145); TOT PROT 5.6 g/dl (6.4-8.2)
[2022-07-07 09:15] LABS: PHOSPHOROUS 10.1 mg/dL (2.5-4.9)
[2022-07-07] MEDS ORDERED: CALCIUM GLUCONATE IN NACL 1 GM/50 ML BAG IVPB STA (09:31)
[2022-07-07] MEDS: NOREPINEPHRINE BITARTRATE/D5W 8 MG/250 ML BAG IVPB SCH (09:43)
[2022-07-07] MEDS: PIPERACILLIN/TAZOB 3.375 GM 3.375 GM in DEXTROSE 5%-WATER - 50 ML IVPB SCH (09:43)
[2022-07-07 13:11] VITALS: BP 49/32; TEMP 94
[2022-07-07 13:12] VITALS: PULSE 0; RESP 0
== END 2022-07-07 10:10 | disposition expired | DRG 871 ==
LOC: JER 16:38 → JERBED 20:09 → JICU 21:21
PROVIDERS: ADMIT Internal Medicine Pulmonary Disease; ATTEND Internal Medicine Pulmonary Disease
DX: A41.9 Sepsis, unspecified organism (principal); G93.41 Metabolic encephalopathy; K72.00 Acute and subacute hepatic failure without coma; R65.21 Severe sepsis with septic shock; U07.1 COVID-19; C18.9 Malignant neoplasm of colon, unspecified; C78.7 Secondary malignant neoplasm of liver and intrahepatic bile duct; N17.9 Acute kidney failure, unspecified; R18.8 Other ascites; D64.9 Anemia, unspecified; K72.10 Chronic hepatic failure without coma; E87.5 Hyperkalemia; I95.9 Hypotension, unspecified; I10 Essential (primary) hypertension; E78.5 Hyperlipidemia, unspecified
CPT/HCPCS: 0241U-QW; 36415; 71045-TC-FY; 80053; 80076; 81003; 82550; 82553; 82803; 82962; 83605; 83735; 84100; 84484; 85025; 85027; 85610; 85730; 86850; 86900; 86901; 87040; 87086; 93005; 93010; 99285-25; J3490